=== PATIENT | female | born 1955 | race Caucasian/White ===

== ENCOUNTER 2020-02-19 07:38 | Outpatient (REF) | payer OTHER, SELFPAY ==
[2020-02-19 11:33] LABS: Creatinine Urine 47.47 mg/dL; Microalbum/Creatinine Ratio Ur 16.8 ug/mg cr
[2020-02-19 11:36] LABS: Estimated Average Glucose 126 mg/dL
[2020-02-19 11:43] LABS: Alanine Aminotransferase 8 U/L (0-31); Anion Gap 13 (12-20); Aspartate Amino Transferase 13 U/L (5-31); Blood Urea Nitrogen 15 mg/dL (9-16); Calcium 8.5 mg/dL (8.4-10.2); Carbon Dioxide 29 mmol/L (22-29); Chloride 104 mmol/L (96-108); Cholesterol 165 mg/dL; Estimated Glomerular Filt Rate > 60; Glucose Fasting 106 mg/dL (60-99); HDL Cholesterol 48 mg/dL; LDL Cholesterol Calculated 102 mg/dl; Potassium 4.3 mmol/l (3.3-5.1); Sodium 142 mmol/L (135-145); Triglycerides 79 mg/dL
[2020-02-19 11:54] LABS: Vitamin D 25-OH Total 37.2 ng/mL (>30)
== END 2020-02-19 07:39 | disposition home or self-care (01) ==
LOC: HO.HMGCLDS 07:38
PROVIDERS: PCP Internal Medicine; Visit Provider Internal Medicine
DX: E11.9 Type 2 diabetes mellitus without complications (principal); E78.5 Hyperlipidemia, unspecified; I10 Essential (primary) hypertension; Z78.0 Asymptomatic menopausal state; E55.9 Vitamin D deficiency, unspecified
CPT/HCPCS: 80048; 80061; 82043; 82306; 83036; 84450; 84460

== ENCOUNTER 2020-05-02 10:01 | Outpatient (REF) | payer OTHER, SELFPAY ==
--- NOTE | 2020-05-02 10:08 | MM_ITS ---
EXAMINATION: MM SCREENING DIGITAL BREAST TOMOSYNTHESIS, BILATERAL CLINICAL INFORMATION: Screening. Asymptomatic. The lifetime risk of breast cancer based on the Tyrer-Cuzick Model is 4%. COMPARISON: Mammography: 01/12/2019, 10/14/2017, 10/13/2016 TECHNIQUE: Digital breast tomosynthesis is performed in both the craniocaudal and mediolateral oblique views along with computer-aided detection (CAD). Synthesized 2D images are generated from the tomosynthesis. FINDINGS: There are scattered areas of fibroglandular density (ACR BI-RADS breast composition Category b). There are no significant masses, abnormal calcifications, or other abnormalities. Parenchymal pattern is similar to prior studies. No significant changes. MM/MM tomosynthesis screening BI IMPRESSION: No mammographic evidence of malignancy. ASSESSMENT: BI-RADS 1: Negative RECOMMENDATION: Routine annual mammography screening. This patient's information was entered into a reminder system with a target due date for their next mammogram.
== END 2020-05-02 10:02 | disposition home or self-care (01) ==
LOC: HO.MAMMO 10:01
PROVIDERS: PCP Internal Medicine; Visit Provider Internal Medicine
DX: Z12.31 Encounter for screening mammogram for malignant neoplasm of breast (principal)
CPT/HCPCS: 77063; 77067

== ENCOUNTER 2020-06-25 07:07 | Outpatient (REF) | payer OTHER, SELFPAY ==
[2020-06-25 11:27] LABS: Estimated Average Glucose 117 mg/dL; Hemoglobin A1c % 5.7 %
[2020-06-25 11:46] LABS: Alanine Aminotransferase 14 U/L (0-31); Anion Gap 13 (12-20); Aspartate Amino Transferase 16 U/L (5-31); Blood Urea Nitrogen 22 mg/dL (9-16); Calcium 8.7 mg/dL (8.4-10.2); Carbon Dioxide 26 mmol/L (22-29); Chloride 108 mmol/L (96-108); Cholesterol 160 mg/dL; Estimated Glomerular Filt Rate > 60; Glucose Fasting 108 mg/dL (60-99); HDL Cholesterol 48 mg/dL; LDL Cholesterol Calculated 99 mg/dl; Potassium 4.5 mmol/L (3.3-5.1); Sodium 142 mmol/L (135-145); Triglycerides 65 mg/dL
[2020-06-25 11:58] LABS: Creatinine Urine 80.57 mg/dL; Microalbum/Creatinine Ratio Ur 13.6 ug/mg cr; Vitamin D 25-OH Total 39.9 ng/mL (>30)
== END 2020-06-25 07:08 | disposition home or self-care (01) ==
LOC: HO.HMGCLDS 07:07
PROVIDERS: PCP Internal Medicine; Visit Provider Internal Medicine
DX: E11.9 Type 2 diabetes mellitus without complications (principal); E78.5 Hyperlipidemia, unspecified; I10 Essential (primary) hypertension; Z78.0 Asymptomatic menopausal state
CPT/HCPCS: 36415; 80048; 80061; 82043; 82306; 83036; 84450; 84460

== ENCOUNTER 2020-07-18 08:06 | Outpatient (REF) | payer OTHER, SELFPAY ==
--- NOTE | ~2020-07-18 | MM_ITS ---
EXAMINATION: BONE DENSITOMETRY CLINICAL INDICATION: Menopause. COMPARISON: This is the patient's baseline examination. TECHNIQUE: Using a [employer] DXA System (software version: 13.1) manufactured by [employer], dual-energy x-ray absorptiometry was performed of the lumbar spine and left hip. The images are of good technical quality. Summary results are attached. FINDINGS: AP SPINE L1-L4: BMD 1.070 g/cm2, Z-score 0.9, T-score -0.9, normal. LEFT FEMUR, NECK: BMD 0.880 g/cm2, Z-score 0.5, T-score -1.1, osteopenia. LEFT FEMUR, TOTAL: BMD 0.895 g/cm2, Z-score 0.5, T-score -0.9, normal. IDENTIFIED RISK FACTORS: Menopause, left oophorectomy, tobacco use (current smoker). HISTORY OF FRACTURE: None listed. MEDICATIONS: Vitamin D. MM/XR DEXA axial skeleton IMPRESSION: 1. DIAGNOSIS: Osteopenia based on the lowest T-score value of -1.1 in the femoral neck applying World Health Organization criteria. 2. 10-YEAR FRACTURE RISK PREDICTION, FRAX: Major osteoporotic fracture (clinical spine, forearm, hip or shoulder) 8.0%. Hip fracture 1.1%. 3. Treatment Recommendations: NOF guidelines recommend consideration for treatment in postmenopausal women and men age 50 and older presenting with the following: -A hip or vertebral (clinical or morphometric) fracture. -T-score less than or equal to -2.5 at the femoral neck or spine after appropriate evaluation to exclude secondary causes. -Low bone mass at the hip or spine and a 10-year fracture probability by FRAX of greater than or equal to 3% for hip fracture or greater than or equal to 20% for major osteoporotic fracture based on the [place] adapted WHO algorithm. 4. Other Recommendations: All treatment decisions require clinical judgment and consideration of individual patient factors, including patient preferences, comorbidities, previous drug use, risk factors not captured in the FRAX model (e.g. frailty, falls, vitamin D deficiency, increased bone turnover, interval significant decline in bone density) and possible under or overestimation of fracture risk by FRAX. Additional medical evaluation for secondary cause of low bone mineral density may be appropriate. FUTURE SCAN RECOMMENDATION: People with diagnosed cases of osteoporosis or at high risk for fracture should have regular bone mineral density tests. For patients eligible for Medicare, routine testing is allowed once every 2 years. The testing frequency can be increased to one year for patients who have rapidly progressing disease, those who are receiving or discontinuing medical therapy to restore bone mass, or have additional risk factors.
== END 2020-07-18 08:07 | disposition home or self-care (01) ==
LOC: HO.MAMMO 08:06
PROVIDERS: Visit Provider Internal Medicine
DX: Z13.820 Encounter for screening for osteoporosis (principal); Z78.0 Asymptomatic menopausal state; Z79.899 Other long term (current) drug therapy
CPT/HCPCS: 77080

== ENCOUNTER 2021-04-23 07:15 | Outpatient (REF) | payer MEDICARE, OTHER, SELFPAY ==
[2021-04-23 11:41] LABS: Estimated Average Glucose 111 mg/dL; Hemoglobin A1c % 5.5 %
[2021-04-23 12:07] LABS: Alanine Aminotransferase 13 U/L (0-31); Anion Gap 12 (12-20); Aspartate Amino Transferase 15 U/L (5-31); Blood Urea Nitrogen 15 mg/dL (9-16); Carbon Dioxide 28 mmol/L (22-29); Chloride 105 mmol/L (96-108); Cholesterol 178 mg/dL; Estimated Glomerular Filt Rate > 60; Glucose Fasting 146 mg/dL (60-99); HDL Cholesterol 59 mg/dL; LDL Cholesterol Calculated 106 mg/dl; Potassium 4.3 mmol/L (3.3-5.1); Sodium 141 mmol/L (135-145); Triglycerides 65 mg/dL; Vitamin D 25-OH Total 30.5 ng/mL (>30)
== END 2021-04-23 07:16 | disposition home or self-care (01) ==
LOC: HO.HMGCLDS 07:15
PROVIDERS: PCP Internal Medicine; Visit Provider Internal Medicine
DX: E11.9 Type 2 diabetes mellitus without complications (principal); I10 Essential (primary) hypertension; E78.5 Hyperlipidemia, unspecified; Z78.0 Asymptomatic menopausal state
CPT/HCPCS: 36415; 80048; 80061; 82306; 83036; 84450; 84460

== ENCOUNTER 2021-05-02 13:20 | Outpatient (REF) | payer MEDICARE, OTHER, SELFPAY ==
--- NOTE | ~2021-05-02 | US_ITS ---
EXAMINATION: Noninvasive assessment of the arteries of both lower extremities CLINICAL INFORMATION: Decreased pedal pulses COMPARISON: None ? TECHNIQUE: The ankle/brachial indices of the distal posterior tibial and the dorsalis pedis arteries were obtained of the lower extremity arterial system bilaterally. The study was performed at rest. ? FINDINGS: ?? RIGHT LEG 1. THE RIGHT ANKLE-BRACHIAL INDEX IS: 0.61 (higher of the DP/PT) >0.97-1.25 = normal - no significant arterial disease 0.75-0.96 = mild peripheral arterial disease 0.5-0.74 = moderate peripheral arterial disease <0.50 = severe peripheral arterial disease <0.30 = critical arterial disease 2. SEGMENTAL PRESSURES: Ankle: DP: 118 mmHg, PT: 112 mmHg 3. PVR WAVEFORMS: Ankle: Monophasic LEFT LE. THE LEFT ANKLE-BRACHIAL INDEX IS: 0.86 (higher of the DP/PT) >0.97-1.25 = normal - no significant arterial disease 0.75-0.96 = mild peripheral arterial disease 0.5-0.74 = moderate peripheral arterial disease <0.50 = severe peripheral arterial disease <0.30 = critical arterial disease 2. SEGMENTAL PRESSURES: Ankle: DP: 150 mmHg, PT: 167 mmHg 3. PVR WAVEFORMS: Ankle: Monophasic US/US KEISHA complete IMPRESSION: Moderate peripheral arterial disease on the right and mild peripheral arterial disease on the left.
--- NOTE | ~2021-05-02 | US_ITS ---
EXAMINATION: US RETROPERITONEAL LIMITED (AORTA) CLINICAL INFORMATION: Abdominal bruit. COMPARISON: None TECHNIQUE: Poon-scale, color Doppler and spectral Doppler evaluation of the abdominal aorta. FINDINGS: No abdominal aortic aneurysm. The measurements of the aorta in maximum AP and transverse dimensions respectively are as follows: Proximal: 1.6 x 1.7 cm. Mid: 2.0 x 1.9 cm. Distal: 2.9 x 2.5 cm. PSV: 113.0 cm/s. The measurements of the common iliac arteries in maximum AP and TRV dimensions are as follows: Right Common Iliac Artery: 1.3 x 1.1 cm. Left Common Iliac Artery: 1.2 x 1.4 cm. Bilateral iliac arteries are heavily calcified with elevated velocities. US/US abdominal aortic aneurysm IMPRESSION: No aortic annulus and artery aneurysm, however there appears to be significant stenosis in the bilateral common iliac arteries.
== END 2021-05-02 13:21 | disposition home or self-care (01) ==
LOC: HO.US 13:20
PROVIDERS: PCP Internal Medicine; Visit Provider Internal Medicine
DX: R09.89 Other specified symptoms and signs involving the circulatory and respiratory systems (principal); R20.0 Anesthesia of skin; R20.2 Paresthesia of skin
CPT/HCPCS: 76706; 93923

== ENCOUNTER → 2021-05-13 14:12 | Outpatient (BNVA) | payer MEDICARE, OTHER, SELFPAY | PROVIDERS: PCP Internal Medicine; Visit Provider Surgery Vascular Surgery | DX: I73.9 Peripheral vascular disease, unspecified (principal) | CPT/HCPCS: 99202 ==

== ENCOUNTER 2021-05-21 05:57 | Day surgery (SDC) | payer MEDICARE, OTHER, SELFPAY ==
[2021-05-21] VITALS (8 sets, daily range): BP systolic 151–166; BP diastolic 55–98; PULSE 64–68; RESP 4–18; TEMP 36.9–37.1; O2SAT 98–100; BMI 23.4
[2021-05-21 06:23] LABS: MANUAL DIFF FLAG NO
[2021-05-21 06:27] LABS: Basophils Absolute Auto 0.1 X10*3/uL (0.0-0.2); Eosinophils Absolute Auto 0.2 X10*3/uL (0.0-0.4); Eosinophils Percent Auto 2.4 % (0-4); Hematocrit 44.8 % (37.0-47.0); Hemoglobin 14.4 g/dl (12.0-16.0); Imm Gran Abs Auto 0.08 X10*3/uL (0.00-0.03); Imm Gran Pct Auto 0.8 % (0.0-0.4); Lymphocytes Absolute Auto 3.3 X10*3/uL (1.2-4.9); Lymphocytes Percent Auto 34.1 % (20-40); Mean Corpuscular HGB Conc 32.1 g/dl (31.0-35.0); Mean Corpuscular Hemoglobin 30.8 pg (27.0-33.0); Mean Corpuscular Volume 95.7 fL (80.0-98.0); Mean Platelet Volume 8.8 fL (9.4-12.3); Neutrophils Percent Auto 51.7 % (45-73); Platelet Count 268 X10*3/uL (160-400); Red Blood Count 4.68 X10*6/uL (4.20-5.50); Red Cell Distribution Width 13.2 % (11.0-16.0); White Blood Count 9.8 X10*3/uL (4.8-10.8)
[2021-05-21 06:39] LABS: Blood Urea Nitrogen 12 mg/dL (9-16); Creatinine Clr Calc Pharmacy 54.2; Estimated Glomerular Filt Rate > 60
[2021-05-21 06:58] LABS: Glucose, Whole Blood 126 mg/dL (60-115)
[2021-05-21] MEDS: iohexoL 300 MG/ML 100 ML INFUS..BTL IV (09:00)
[2021-05-21] MEDS: iohexoL 300 MG/ML 50 ML INFUS..BTL IV (09:01)
[2021-05-21] MEDS: Clopidogrel Bisulfate 300 MG TABLET PO (09:53)
--- NOTE | 2021-05-21 10:44 | W.PM.OPN ---
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 Ultrasound-guided left common femoral access, and right common femoral access 2. Aortogram with bilateral lower extremity runoff 3. Angioplasty and stent left common iliac 4. Angioplasty and stent of right common iliac Surgeon:Jose Mcbride M.D., FACS, RPVI Business Resiliency Manager:None Anesthesia: Local with moderate conscious sedation. Total intraservice moderate sedation time was 60 minutes. I monitored the patient's level of consciousness and physiologic status continuously throughout the procedure. Specimens:none Drains:none Estimated blood loss: Less than 10 ml Implant: [place] VBX 8x29 bilateral Indications: Very pleasant 65-year-old female with activity limiting claudication right more so than left. She had noninvasive testing. Concern of inflow disease. She now presents for endovascular intervention The patient has signed the informed consent after reviewing risks, complications, benefits, and alternatives previously discussed with the patient. The patient was given the opportunity to ask any additional questions or voice any concerns. All questions were answered to the patient's satisfaction. Procedure in detail: Patient was brought to the angiography suite prior to which a time-out was called for patient identification and site verification. Bilateral groins were prepped and draped in the standard surgical fashion. Under ultrasound guidance left common femoral was punctured with micro puncture needle and wire. Subsequently a precision 5 [place] sheath was then placed. Bentson wire was advanced to the level of the aorta. 5 [place] Flush catheter was brought up and parked at the level of the renal arteries. Aortogram was then undertaken. Catheter was brought down to the level of the iliac bifurcation. Iliacs were subsequently imaged. It was recognized that she had a high-grade right common iliac stenosis as well. We then under ultrasound guidance placed a 5 [place] sheath on the right common femoral artery as well. This was done in a similar manner as the left. We were able to advance glidewire Advantage wires 035 up bilateral iliac arteries. We subsequently image this area. We then administered 4000 units of systemic heparin. After 5 minutes of circulation time we exchanged out for 7 [place] sheaths bilaterally. We initially plasty did both sides with a 6 x 20 balloon. We subsequently advanced the [place] VBX balloon expandable stents 8 x 29 bilaterally. This was done in a kissing manner. They were insufflated and placed simultaneously at the iliac bifurcation. Once this was accomplished completion angiogram demonstrated excellent result. We did bilateral lower extremity runoffs through the sheaths. Once this was all accomplished bilateral StarClose closure devices were then placed. Patient tolerated the procedure well. Returned to recovery with stable vitals. Interpretation of films: 1. Ultrasound demonstrates appropriate femoral puncture. Image of which was saved. 2. Aortogram demonstrates appropriate caliber aorta. Minimal disease. Appropriate take-off of the renals. 3. Iliac images demonstrate high-grade stenosis at bilateral common iliac arteries. 4. Left Leg Common femoral artery: Patent Profundus Femoris: No significant disease Superficial femoral artery: No significant disease but small in caliber Popliteal artery (p1,p2,p3): No significant disease Anterior tibial artery: No significant disease Peroneal artery: No significant disease Posterior tibial artery: No significant disease 5. Right Leg Common femoral artery: Patent Profundus Femoris: No significant disease Superficial femoral artery: No significant disease but small in caliber Popliteal artery (p1,p2,p3): No significant disease Anterior tibial artery: No significant disease Peroneal artery: No significant disease Posterior tibial artery: No significant disease Conclusion: 1. Successful bilateral iliac arteries 2. Anticoagulation status: Will need aspirin and Plavix for 6 months. This note is constructed using voice recognition software. While every effort has been made to ensure accuracy, service station helper errors may have been included. Thank you for allowing me to participate in the care of your patient. Yours sincerely, Jose Mcbride MD, FACS, R.P.V.I.
== END 2021-05-21 11:36 | disposition home or self-care (01) ==
PROVIDERS: PCP Internal Medicine; Visit Provider Surgery Vascular Surgery
DX: E11.51 Type 2 diabetes mellitus with diabetic peripheral angiopathy without gangrene (principal); I70.213 Atherosclerosis of native arteries of extremities with intermittent claudication, bilateral legs; R26.2 Difficulty in walking, not elsewhere classified; R09.89 Other specified symptoms and signs involving the circulatory and respiratory systems; F32.9 Major depressive disorder, single episode, unspecified; I10 Essential (primary) hypertension; Z79.84 Long term (current) use of oral hypoglycemic drugs; F17.210 Nicotine dependence, cigarettes, uncomplicated
CPT/HCPCS: 36415; 37221; 37223; 76937; 82565; 82947; 84520; 85025; 99152; 99153; C1725; C1760; C1769; C1874; C1887; C1894; J2250; J3010; Q9967

== ENCOUNTER → 2021-06-05 13:20 | Outpatient (BNVA) | payer MEDICARE, OTHER, SELFPAY | PROVIDERS: PCP Internal Medicine; Visit Provider Surgery Vascular Surgery | DX: I73.9 Peripheral vascular disease, unspecified (principal) | CPT/HCPCS: 99212 ==

== ENCOUNTER 2021-06-21 07:39 | Outpatient (REF) | payer MEDICARE, OTHER, SELFPAY ==
--- NOTE | ~2021-06-21 | MM_ITS ---
EXAMINATION: MM SCREENING DIGITAL BREAST TOMOSYNTHESIS, BILATERAL CLINICAL INFORMATION: Screening. Asymptomatic. The lifetime risk of breast cancer based on the Tyrer-Cuzick Model is 3%. COMPARISON: Mammography: 05/02/2020, 01/12/2019, 10/14/2017 TECHNIQUE: Digital breast tomosynthesis is performed in both the craniocaudal and mediolateral oblique views along with computer-aided detection (CAD). Synthesized 2D images are generated from the tomosynthesis. FINDINGS: There are scattered areas of fibroglandular density (ACR BI-RADS breast composition Category b). There are no significant masses, abnormal calcifications, or other abnormalities. Parenchymal pattern is similar to prior studies. No architectural abnormality. The axilla and skin contours are unremarkable. MM/MM tomosynthesis screening BI IMPRESSION: No mammographic evidence of malignancy. ASSESSMENT: BI-RADS 1: Negative RECOMMENDATION: Routine annual mammography screening. This patient's information was entered into a reminder system with a target due date for their next mammogram.
== END 2021-06-21 07:40 | disposition home or self-care (01) ==
LOC: HO.MAMMO 07:39
PROVIDERS: Visit Provider Internal Medicine
DX: Z12.31 Encounter for screening mammogram for malignant neoplasm of breast (principal)
CPT/HCPCS: 77063; 77067

== ENCOUNTER 2021-07-28 06:44 | Outpatient (REF) | payer MEDICARE, OTHER, SELFPAY ==
[2021-07-28 11:46] LABS: Alanine Aminotransferase 14 U/L (0-31); Anion Gap 12 (12-20); Aspartate Amino Transferase 18 U/L (5-31); Blood Urea Nitrogen 19 mg/dL (9-16); Calcium 9.1 mg/dL (8.4-10.2); Carbon Dioxide 26 mmol/L (22-29); Chloride 107 mmol/L (96-108); Cholesterol 168 mg/dL; Estimated Glomerular Filt Rate > 60; Glucose Fasting 118 mg/dL (60-99); HDL Cholesterol 49 mg/dL; LDL Cholesterol Calculated 106 mg/dl; Potassium 4.2 mmol/L (3.3-5.1); Sodium 141 mmol/L (135-145); Triglycerides 65 mg/dL
[2021-07-28 11:52] LABS: Vitamin D 25-OH Total 44.3 ng/mL (>30)
[2021-07-28 12:03] LABS: Estimated Average Glucose 108 mg/dL; Hemoglobin A1c % 5.4 %
== END 2021-07-28 06:45 | disposition home or self-care (01) ==
LOC: HO.HMGCLDS 06:44
PROVIDERS: Visit Provider Internal Medicine
DX: E78.5 Hyperlipidemia, unspecified (principal); I10 Essential (primary) hypertension; I73.9 Peripheral vascular disease, unspecified; Z78.0 Asymptomatic menopausal state
CPT/HCPCS: 36415; 80048; 80061; 82306; 83036; 84450; 84460

== ENCOUNTER 2021-09-04 12:10 | Outpatient (REF) | payer MEDICARE, OTHER, SELFPAY ==
--- NOTE | ~2021-09-04 | US_ITS ---
EXAMINATION: NONINVASIVE ASSESSMENT OF THE ARTERIES OF BOTH LOWER EXTREMITIES INCLUDING PVR EXAM AND BILATERAL LOWER EXTREMITY DUPLEX CLINICAL INFORMATION: Peripheral vascular disease, unspecified. COMPARISON: None TECHNIQUE: Ankle pulse volume recordings, ankle pressure measurements and ankle-brachial indices were obtained of the lower extremity arterial system bilaterally in addition to duplex Doppler techniques with wave form analysis and measurement of velocities in the common femoral, profunda femoral, superficial femoral, popliteal, tibial and peroneal arteries. The study was performed only at rest. FINDINGS: Peak systolic velocity within the distal aorta 146 cm/s. RIGHT LEG 1. Right Ankle-Brachial Index: 1.1 (higher of the DP/PT) >0.97-1.25 = normal - no significant arterial disease 0.75-0.96 = mild peripheral arterial disease 0.5-0.74 = moderate peripheral arterial disease <0.50 = severe peripheral arterial disease <0.30 = critical arterial disease 2. Segmental Pressures (mmHg): Brachial: 179 Ankle: PT 198, DP 200 3. PVR Waveforms: Ankle: Abnormal low amplitude 4. Direct Duplex: Right iliac stent Inflow: 203 cm/s, multiphasic Proximal: 199 cm/s, multiphasic Mid: 191 cm/s, multiphasic Distal 196 cm/s, multiphasic Outflow: 202 cm/s, multiphasic Common femoral artery: 183 cm/s, multiphasic Profunda femoris artery: 124 cm/s, multiphasic Superficial femoral artery (proximal): 136 cm/s, multiphasic Superficial femoral artery (mid): 148 cm/s, multiphasic Superficial femoral artery (distal): 94.4 cm/s, multiphasic Popliteal artery: 120 cm/s, multiphasic Posterior tibial artery: 64 cm/s, multiphasic Within the area of the right groin, adjacent to the femoral vessels there is a complex hypoechoic collection which measures 3.3 x 1.4 x 1.6 cm without internal vascularity. Question hematoma or other structure. Within the popliteal fossa there is a 2.4 x 1.3 x 1.3 cm hypoechoic structure. Question Noonan's cyst. LEFT LE. Left Ankle-Brachial Index: 1.09 (higher of the DP/PT) >0.97-1.25 = normal - no significant arterial disease 0.75-0.96 = mild peripheral arterial disease 0.5-0.74 = moderate peripheral arterial disease <0.50 = severe peripheral arterial disease <0.30 = critical arterial disease 2. Segmental Pressures: Brachial: 182 Ankle: PT 195, DP 199 3. PVR Waveforms: Ankle: Abnormal low amplitude 4. Direct Duplex: Left iliac stent Inflow: 135 cm/s, multiphasic Proximal: 167 cm/s, multiphasic Mid: 157 cm/s, multiphasic Distal: 183 cm/s, multiphasic Outflow: 256 cm/s, multiphasic Common femoral artery: 99.8 cm/s, multiphasic Profunda femoris artery: 132 cm/s, multiphasic Superficial femoral artery (proximal): 145 cm/s, multiphasic Superficial femoral artery (mid): 145 cm/s, multiphasic Superficial femoral artery (distal): 141 cm/s, multiphasic Popliteal artery: 89.7 cm/s, multiphasic Posterior tibial artery: 56.2 cm/s, multiphasic US/US arterial duplex LE BI IMPRESSION: On the right the ankle-brachial index is 1.1, though suspect this may be secondary to calcified vessels. PVR is abnormal and low amplitude. There is multiphasic flow throughout the right lower extremity. On the left the ankle-brachial index is 1.09, though suspect this may be secondary to calcified vessels. PVR is abnormal and low amplitude. There is multiphasic flow throughout the left lower extremity. There are bilateral iliac stents in place. There is normal Doppler signal throughout each of the iliac stents, though there is slightly increased flow velocity at the level of the left iliac outflow which could be suggestive of some degree of narrowing at this level, though there is normal multiphasic flow throughout the remainder of the left lower extremity. There is a complex hypoechoic 3.3 x 1.4 x 1.6 cm structure within the right groin adjacent to the vessels which could represent a hematoma. Would correlate for any recent procedure. Possible small Noonan's cyst within the right popliteal fossa.
--- NOTE | ~2021-09-04 | US_ITS ---
EXAMINATION: US RETROPERITONEAL LIMITED (AORTA) CLINICAL INFORMATION: Peripheral vascular disease. COMPARISON: None TECHNIQUE: Poon-scale, color Doppler and spectral Doppler evaluation of the abdominal aorta. FINDINGS: There is atherosclerotic disease of the abdominal aorta The measurements of the aorta in maximum AP and transverse dimensions respectively are as follows: Proximal: 2.3 x 1.8 cm. Mid: 2.2 x 2.2 cm. Distal: 2.3 x 2.3 cm. PSV: 120 cm/s. The measurements of the common iliac arteries in maximum AP and TRV dimensions are as follows: Right Common Iliac Artery: 0.6 cm. Left Common Iliac Artery: 0.6 cm. US/US aorta IMPRESSION: No abdominal aortic aneurysm seen..
== END 2021-09-04 12:11 | disposition home or self-care (01) ==
LOC: HO.US 12:10
PROVIDERS: Visit Provider Surgery Vascular Surgery
DX: I73.9 Peripheral vascular disease, unspecified (principal); Z95.820 Peripheral vascular angioplasty status with implants and grafts
CPT/HCPCS: 76775; 93923; 93925

== ENCOUNTER → 2021-09-09 13:57 | Outpatient (BNVA) | payer MEDICARE, OTHER, SELFPAY | PROVIDERS: PCP Internal Medicine; Visit Provider Surgery Vascular Surgery | DX: I73.9 Peripheral vascular disease, unspecified (principal) | CPT/HCPCS: 99212 ==

== ENCOUNTER 2022-03-18 10:24 | Outpatient (REF) | payer MEDICARE, OTHER, SELFPAY | END 2022-03-18 10:25 | disposition home or self-care (01) | LOC: HO.US 10:24 | PROVIDERS: Visit Provider Surgery Vascular Surgery | DX: Z13.89 Encounter for screening for other disorder (principal) ==

== ENCOUNTER 2022-05-07 08:09 | Outpatient (REF) | payer MEDICARE, OTHER, SELFPAY ==
[2022-05-07 11:44] LABS: Alanine Aminotransferase 9 U/L (0-31); Anion Gap 9 (12-20); Aspartate Amino Transferase 15 U/L (5-31); Blood Urea Nitrogen 21 mg/dL (9-16); Calcium 8.9 mg/dL (8.4-10.2); Carbon Dioxide 28 mmol/L (22-29); Chloride 108 mmol/L (96-108); Cholesterol 159 mg/dL; Estimated Glomerular Filt Rate > 60; Glucose Fasting 110 mg/dL (60-99); HDL Cholesterol 45 mg/dL; LDL Cholesterol Calculated 104 mg/dl; Potassium 4.3 mmol/L (3.3-5.1); Sodium 141 mmol/L (135-145); Triglycerides 52 mg/dL
[2022-05-07 11:50] LABS: Estimated Average Glucose 128 mg/dL; Hemoglobin A1C 149.2345 umol/L; Hemoglobin A1c % 6.1 %
[2022-05-07 11:50] LABS: Creatinine Urine 71.39 mg/dL; Microalbum/Creatinine Ratio Ur 12.6 ug/mg cr
[2022-05-07 12:04] LABS: Vitamin D 25-OH Total 38.3 ng/mL (>30)
== END 2022-05-07 08:10 | disposition home or self-care (01) ==
LOC: HO.HMGCLDS 08:09
PROVIDERS: PCP Internal Medicine; Visit Provider Internal Medicine
DX: Z13.89 Encounter for screening for other disorder (principal)
CPT/HCPCS: 36415; 80048; 80061; 82043; 82306; 83036; 84450; 84460

== ENCOUNTER 2022-05-07 10:20 | Outpatient (REF) | payer MEDICARE, OTHER, SELFPAY ==
--- NOTE | ~2022-05-07 | US_ITS ---
EXAMINATION: ANKLE-BRACHIAL INDICES SINGLE LEVEL PULSE VOLUME RECORDING ARTERIAL DUPLEX BILATERAL LEGS CLINICAL INFORMATION: Peripheral vascular disease. Iliac artery stents. COMPARISON: 09/04/2021. TECHNIQUE: Ankle-brachial indices and PVR at the ankle were obtained. Duplex Doppler of the bilateral lower extremity arterial systems was performed. FINDINGS: RIGHT: Ankle-brachial index: 0.95 PVR: Mildly abnormal. Right iliac artery proximal to the stent: PSV 193 cm/s. Biphasic waveform. Proximal stent: PSV 208 cm/s. Biphasic waveform. Mid stent: PSV 181 cm/s. Biphasic waveform. Distal stent: PSV 188 cm/s. Biphasic waveform. Right iliac artery distal to stent: PSV 182 cm/s. Biphasic waveform. Common femoral: PSV 182 cm/s. Biphasic waveform. Deep femoral: PSV 112 cm/s. Biphasic waveform. Proximal superficial femoral: PSV 129 cm/s. Biphasic waveform. Mid superficial femoral: PSV 128 cm/s. Biphasic waveform. Distal superficial femoral: PSV 108 cm/s. Biphasic waveform. Popliteal: PSV 103 cm/s. Biphasic waveform. Posterior tibial: PSV 65 cm/s. Biphasic waveform. LEFT: Ankle-brachial index: 0.99 PVR: Normal Left iliac artery proximal to the stent: PSV 130 cm/s. Biphasic waveform. Proximal stent: PSV 197 cm/s. Biphasic waveform. Mid stent: PSV 103 cm/s. Biphasic waveform. Distal stent: PSV 99 cm/s. Biphasic waveform. Left iliac artery distal to stent: PSV 192 cm/s. Biphasic waveform. Common femoral: PSV 192 cm/s. Biphasic waveform. Deep femoral: PSV 101 cm/s. Biphasic waveform. Proximal superficial femoral: PSV 110 cm/s. Biphasic waveform. Mid superficial femoral: PSV 115 cm/s. Biphasic waveform. Distal superficial femoral: PSV 121 cm/s. Biphasic waveform. Popliteal: PSV 95 cm/s. Biphasic waveform. Posterior tibial: PSV a 2 cm/s. Biphasic waveform. US/US arterial duplex LE BI IMPRESSION: Patent bilateral iliac artery stents. No evidence of hemodynamically significant peripheral arterial disease.
--- NOTE | ~2022-05-07 | US_ITS ---
EXAMINATION: ANKLE-BRACHIAL INDICES SINGLE LEVEL PULSE VOLUME RECORDING ARTERIAL DUPLEX BILATERAL LEGS CLINICAL INFORMATION: Peripheral vascular disease. Iliac artery stents. COMPARISON: 09/04/2021. TECHNIQUE: Ankle-brachial indices and PVR at the ankle were obtained. Duplex Doppler of the bilateral lower extremity arterial systems was performed. FINDINGS: RIGHT: Ankle-brachial index: 0.95 PVR: Mildly abnormal. Right iliac artery proximal to the stent: PSV 193 cm/s. Biphasic waveform. Proximal stent: PSV 208 cm/s. Biphasic waveform. Mid stent: PSV 181 cm/s. Biphasic waveform. Distal stent: PSV 188 cm/s. Biphasic waveform. Right iliac artery distal to stent: PSV 182 cm/s. Biphasic waveform. Common femoral: PSV 182 cm/s. Biphasic waveform. Deep femoral: PSV 112 cm/s. Biphasic waveform. Proximal superficial femoral: PSV 129 cm/s. Biphasic waveform. Mid superficial femoral: PSV 128 cm/s. Biphasic waveform. Distal superficial femoral: PSV 108 cm/s. Biphasic waveform. Popliteal: PSV 103 cm/s. Biphasic waveform. Posterior tibial: PSV 65 cm/s. Biphasic waveform. LEFT: Ankle-brachial index: 0.99 PVR: Normal Left iliac artery proximal to the stent: PSV 130 cm/s. Biphasic waveform. Proximal stent: PSV 197 cm/s. Biphasic waveform. Mid stent: PSV 103 cm/s. Biphasic waveform. Distal stent: PSV 99 cm/s. Biphasic waveform. Left iliac artery distal to stent: PSV 192 cm/s. Biphasic waveform. Common femoral: PSV 192 cm/s. Biphasic waveform. Deep femoral: PSV 101 cm/s. Biphasic waveform. Proximal superficial femoral: PSV 110 cm/s. Biphasic waveform. Mid superficial femoral: PSV 115 cm/s. Biphasic waveform. Distal superficial femoral: PSV 121 cm/s. Biphasic waveform. Popliteal: PSV 95 cm/s. Biphasic waveform. Posterior tibial: PSV a 2 cm/s. Biphasic waveform. US/US KEISHA complete IMPRESSION: Patent bilateral iliac artery stents. No evidence of hemodynamically significant peripheral arterial disease.
--- NOTE | ~2022-05-07 | US_ITS ---
EXAMINATION: US RETROPERITONEAL LIMITED (AORTA) CLINICAL INFORMATION: Peripheral vascular disease. COMPARISON: 09/04/2021. TECHNIQUE: Poon-scale, color Doppler and spectral Doppler evaluation of the abdominal aorta. FINDINGS: The aorta is normal in caliber. The measurements of the aorta in maximum AP and transverse dimensions respectively are as follows: Proximal: 2.1 x 1.8 cm. Mid: 1.7 x 1.5 cm. Distal: 2.5 x 2.4 cm. Previously 2.3 x 2.3 cm. PSV: 78 cm/s. The measurements of the common iliac arteries in maximum AP and TRV dimensions are as follows: Right Common Iliac Artery: 1.0 x 0.7 cm. Left Common Iliac Artery: 0.7 x 0.6 cm. Velocity in the right common iliac artery 193.0 cm/s with a biphasic waveform. Velocity in the right external iliac artery 188.0 cm/s with a biphasic waveform. Velocity in the left common iliac artery 130 cm/s with a biphasic waveform. Velocity in the left external iliac artery 99 cm/s with a biphasic waveform. US/US abdominal aortic aneurysm IMPRESSION: Stable small infrarenal abdominal aortic aneurysm.
== END 2022-05-07 10:21 | disposition home or self-care (01) ==
LOC: HO.US 10:20
PROVIDERS: PCP Internal Medicine; Visit Provider Surgery Vascular Surgery
DX: I70.213 Atherosclerosis of native arteries of extremities with intermittent claudication, bilateral legs (principal); Z95.820 Peripheral vascular angioplasty status with implants and grafts; I10 Essential (primary) hypertension; E11.9 Type 2 diabetes mellitus without complications; E78.5 Hyperlipidemia, unspecified; M85.852 Other specified disorders of bone density and structure, left thigh; Z78.0 Asymptomatic menopausal state
CPT/HCPCS: 36415; 76706; 80048; 80061; 82043; 82306; 83036; 84450; 84460; 93923; 93925

== ENCOUNTER 2022-05-12 10:30 | Outpatient (AMB) | payer MEDICARE, OTHER, SELFPAY ==
--- OUTSIDE RECORDS SUMMARY | 2022-05-12 10:32 | XMS_ITS ---
:1955 Author Name Heavenly Tsai Care Team Providers Name Role Phone Valerianuel Heavenly Bell Unavailable Unavailable PROBLEMS Type Condition ICD9-CM Code [id number] Onset Condition SNOMED Code Code Dates Status Problem Type 2 diabetes E11.42 Active [id number] mellitus with diabetic polyneuropathy Problem Primary M19.072 Active [id number] osteoarthritis, left ankle and foot ALLERGIES No Known Allergies ENCOUNTERS Encounter Location Date Diagnosis [facility] Dec, [place] [address] Sep, Typ e 2 diabetes mellitus [place], [place] with diabetic [address] polyneuropathy E 11.42 ; Tinea unguium B3 5.1 ; Pain in right to e(s) M79.674 ; Pain i n left toe(s) M79.675 a nd Primary osteoart hritis, left ankle and f oot M19.072 [facility] [address] [facility] [address], [place] [address] [facility] [address] Nov, Vivienne n in Limb [address]29.[address] Hammer toe 735. 4 [address] Oct, [facility] [address] Oct, Vivienne n in Limb [address]29.[address] Hammer toe 735. 4 [address] Oct, Vivienne n in Limb 729.5 and [place], [place] Hammer toe 735. 4 [address] Oct, [address] Oct, Aracelis betic - [place] NIDDM/Neuropath y 250.60 ; [address] Ulcer of Other P art of Foot 707.15 ; Ar thritis - Degenerative 719 .97 ; Exostosis 726.91 and Hammer toe 735.[address] Sep, [place] [address] Sep, Ulc er of Other Part of [place], [place] Foot 707.15 ; A rthritis - [address] Degenerative 719 .97 ; Diabetic - NIDDM/Neuropathy 250.60 ; Exostosis 726.91 and Hammer toe 735.[address] August, [place] [address] August, Windy chomycosis 110.1 ; [place], [place] Pain in Limb 72 9.5 ; [address] Ulcer of Other P art of Foot 707.15 ; Di abetic - NIDDM/Neuropathy 250.60 ; Exostosis 726.91 ; Hammer toe 735.4 and Farrell llux Limitus 735.8 IMMUNIZATIONS Vaccine Route Administration Date Status COVID-19 Pfizer BioNTech Vaccine Unknown May 09, 2021 Administered SOCIAL HISTORY Qualifiers Date Current Smoker REASON FOR REFERRAL Referring Provider First Name Pratik Referring Provider Last Name Vaibhav Referring Provider Specialty Podiatry Referring Provider email [email or web address] Referred Provider Heavenly Tsai Referring Provider First Name Heavenly Bell Referring Provider Last Name Eulalio Referring Provider Specialty Internal Medicine Referred Organization [facility] Referred Provider Pratik Esposito Referred Address [address], [place],[address] Referred Provider Specialty Podiatry FUNCTIONAL STATUS PLAN OF CARE Activity Details Referral Heavenly Tsai Referral [address] [facility], [address], [place], [address], [email or web address], Pending Test X ray : Foot, left 3V Pending Test X ray : Foot, right 2V Pending Test X ray : Foot, right 2V Pending Test X ray : Foot, right 2V Pending Test Glucose Fasting Pending Test X ray : Foot, right 3V Future/Pending Procedure [id number]-SHOC SKIN LESIONS, 2 T O 4 Future/Pending Procedure 87345- Debride <25 sq cm Future/Pending Procedure [id number] NAIL, 6 OR MOR E Future/Pending Procedure 01492- Debride <25 sq cm Future/Pending Procedure [id number]-HPKC SKIN LESIONS, 2 T O 4 VITAL SIGNS Height 5 ft 1 in in 2021-10-09 Weight 124 lbs 2021-10-09 BMI 23.43 kg/m2 2021-10-09 Heart Rate 108 /min 2014-11-28 Blood pressure systolic 123 mm Hg 2021-10-09 Blood pressure diastolic 80 mm Hg 2021-10-09 MEDICATIONS Medication Instructions Dosage Frequency Start End Duration Statu s Date Date buPROPion HCl as directed Active 150 MG Clopidogrel Orally Once a 1 tablet 24h 30 day(s) Act marli Bisulfate 75 MG day Work Note . .this Sep, Not-Taki patient must 2014 ng be allowed to wear open toe shoes due to painful foot condition until further notice Lisinopril 20 Orally Once a 1 tablet 24h Act marli MG day Simvastatin 10 Orally Once a 1 tablet in 24h Not-Taki MG day the evening ng Extra-Depth . Dx: for 1 year 20 August, . Not-Taki Diabetic Shoes 2014 ng with 3 Pair Custom heat-molded multi-density innersoles . Escitalopram Orally Once a 1 tablet 24h 30 day(s) Ac tive Oxalate 20 MG day Extra Depth for 1 year Sep, Active Diabetic Shoes 2021 with 3 Pair Custom heat-molded multi-density innersoles Atorvastatin Orally Once a 1 tablet 24h 30 day(s) Ac tive Calcium 10 MG day Ibuprofen 600 Orally Three 1 tablet as 8h Oct, 30 DAYS N ot-Taki 600 MG times a day needed 2014 ng metFORMIN HCl Orally Twice a as directed 12h Active 500 MG day Tradjenta 5 MG Orally Once a 1 tablet 24h No t-Taki day ng PROCEDURES Procedure Date Ordered Result Body Site X-RAY EXAM OF RIGHT FOOT 2V Nov 28, 2014 X-RAY EXAM OF RIGHT FOOT 2V November 05, 2014 ACTIVE WOUND CARE/20 CM OR < August 20, 2014 ACTIVE WOUND CARE/20 CM OR < September 17, 2014 X-RAY EXAM OF RIGHT FOOT 3V August 20, 2014 DEBRIDE NAIL, 6 OR MORE August 20, 2014 X-RAY EXAM OF LEFT FOOT 3V October 09, 2021 TRIM SKIN LESIONS, 2 TO 4 October 09, 2021 X-RAY EXAM OF RIGHT FOOT 2V November 15, 2014 DEBRIDE NAIL, 6 OR MORE October 09, 2021 TRIM SKIN LESIONS, 2 TO 4 August 20, 2014 RESULTS Name Result Date Reference Range Hemoglobin A1c Hemoglobin A1c unknown REASON FOR VISIT Insurance Providers [facility] Member Patient Patient Patient Patient Patient Subscriber Subscriber Subscriber Group Insurance Plan Plan Plan Plan ID Relationship Address Phone Name Date of ID Name Date of No Type Insurance Insurance Insurance Coverage to Subscriber Address Phone Name Dates Medicare National [id number] Medicare self Jenny [id number] Govt [employer] [address] [employer] [address] [place] [address] Un[employer] [address] Unicare self Jenny [id number] [place] [address] [facility] [phone] [facility] self Jenny [id number] Navigator [id number] [address] [place] [place] [address] MEDICAL (GENERAL) HISTORY Type Description Date Medical History Diabetic type ll Medical History High blood pressure Medical History Chicken pox Medical History Anxiety Medical History Depression Medical History Poor circulation Surgical History ovarian surgery 1972 Surgical History wisdom teeth extraction 1977 Surgical History Hammertoe/Exc skin ulcer right 11/05 15 Surgical History B/L Stent put in pelvic area 06/10/2021
--- NOTE | 2022-05-12 10:49 | A.OFFPC_ITS ---
Vital Signs 05/12/22 10:53 Height 5 ft 1 in Weight 131 lb BMI 24.7 BP 124/60 Blood Pressure Location Lt brachial Position Sitting Pulse 66 Pulse Source Pulse Oximeter Pulse Oximetry (%) 98 Oxygen Delivery Method Room Air Intake Visit Reasons: f/u labs Intake Note: Pt is here today to f/u on her labs results Allergies No Known Allergies [No Known Allergies*] Allergy (Verified 12/10/22 11:01) Medication List - Last Reconciled 05/12/22 by Heavenly Tsai MD ascorbate calcium (vitamin C) 1 g PO DAILY aspirin 81 mg PO DAILY atorvastatin 10 mg PO Q2D 90 days bupropion HCl 150 mg PO QAM cholecalciferol (vitamin D3) 3,000 units PO DAILY escitalopram oxalate 20 mg PO DAILY lisinopril 20 mg PO DAILY lorazepam 0.5 mg PO DAILY PRN magnesium 300 mg PO DAILY metformin 1,000 mg PO BID Tobacco use date assessed: 05/12/22 Fall risk assessment: No Falls in past year Last assessed Fall Risk: 05/12/22 HPI f/u labs HPI Details 67-year-old lady with dyslipidemia, hype rtension, diabetes mellitus, peripheral arterial disease, with anxiety/ depression, here today for her follow-up. She has been taking her medications as directed, compliant with diet, but still smokes with no desire to quit at present time. She is currently being followed by Dr. Mcbride for her PAD. [facility] Medical History (Updated 12/10/22 @ 11:18 by Heavenly Tsai MD) Osteopenia of left femoral neck Smoker unmotivated to quit Peripheral arterial disease Iliac artery stenosis, bilateral Cigarette smoker Anxiety and depression Decreased pedal pulses Numbness and tingling of both lower extremities Abdominal bruit Postmenopausal Tubular adenoma of colon Encounter for smoking cessation counseling Depression Dyslipidemia Essential hypertension Controlled diabetes mellitus type II without complication Surgical History H/O unilateral oophorectomy Family History Father CVD (cardiovascular disease) Myocardial infarction Mother Diabetes mellitus HTN (hypertension) Stomach cancer Brother Myocardial infarction CVD (cardiovascular disease) Sister No problems noted. Sister No problems noted. Son No problems noted. Son No problems noted. Daughter No problems noted. Daughter No problems noted. Social History Housing: House Alcohol intake: never Patient Tobacco Use Status: Current everyday Tobacco user Cigarettes Per Day: 7 e-Cigarette/Vaping Use: Never Used service: No Current occupational status: retired Cognitive needs: No Hearing needs: No Vision needs: Yes Questionnaire PHQ-9 Over the last 2 weeks, how often have you been bothered by any of the following problems? 1. Little interest or pleasure in doing things: not at all 2. Feeling down, depressed, or hopeless: not at all 3. Trouble falling or staying asleep, or sleeping too much: several days 4. Feeling tired or having little energy: not at all 5. Poor appetite or overeating: several days 6. Feeling bad about yourself - or that you are a failure or have let yourself or your family down: not at all 7. Trouble concentrating on things, such as reading the newspaper or watching television: not at all 8. Moving or speaking so slowly that other people could have noticed. Or the opposite - being so fidgety or restless that you have been moving around a lot more than usual: not at all 9. Thoughts that you would be better off or of hurting yourself in some way: not at all Total score: 2 Depression Screening Interpretation: Positive Depression Screening Follow-up: Existing condition, In treatment and Follow-up Visit Requested [id number] - PHQ-9 Billing: Yes Source: Developed by Drs. Alfredo Gorman, Kim Carson, Maik James and colleagues, with an educational sourav from [employer]. Thrive Questionnaire Date Thrive assessed: 05/12/22 I am a: Patient What is your living situation today?: I have a steady place to live Within the past 12 months, did the food you bought not last and you didn't have the money to get more?: Never true Within the past 12 months, did you worry whether your food would run out before you got money to buy more?: Never true Do you have trouble paying for medicines?: No Do you have trouble getting transportation to medical appointments?: No Do you have trouble paying your heating and electricity bill?: No Do you have trouble taking care of your child, family member or friend?: No Do you have trouble with day-to-day activities such as bathing, preparing meals, shopping, managing finances, etc.?: No Are you currently unemployed and looking for a job?: No Are you interested in more education?: No CYDNEY-7 AMB Questionnaire CYDNEY-7 Date CYDNEY - 7 assessed: 05/12/22 Feeling nervous, anxious, or on edge: 1 = Several days Not being able to stop or control worryin = Several days Worrying too much about different things: 1 = Several days Trouble relaxin = Not at all Being so restless that it is hard to sit still: 0 = Not at all Becoming easily annoyed or irritable: 0 = Not at all Feeling afraid as if something awful might happen: 0 = Not at all Total CYDNEY-7 score (0-4 normal; 5-9 mild; 10-14 moderate; 15-21 severe): 3 Source: Developed by Drs. Alfredo Gorman, Kim Carson, Maik James and colleagues, with an educational sourav from [employer]. CYDNEY-7 Assessment Billing CYDNEY-7 Assessment Tool: CYDNEY-7 Assessment 97852 Review of Systems Const Denies anorexia, Denies body aches, Denies excessive sweating, Denies fatigue, Denies fever(s), Denies headache(s) and Denies increased appetite Eyes Reports no additional complaints ENT Reports Normal hearing present and Denies headache(s) Card Denies chest pain, Denies chest pain at rest, Denies chest pain with activity, Denies pedal edema and Denies dyspnea Resp Denies cough and Denies dyspnea GI Denies abdominal pain, Denies change in stool character and Denies heartburn Reports no additional complaints Musc Denies abnormal gait, Denies muscle cramps and Denies radiating pain into limb Skin/Breast Denies rash, Denies skin ulcer and Denies wounds Neuro Reports Normal hearing present, Denies abnormal gait, Denies headache(s), Denies memory loss and Denies Sensory deficit (Neuro) Psych Reports no additional complaints and Denies memory loss Endo Denies excessive sweating, Denies fatigue, Denies polydipsia and Denies polyuria Maikel/Lymph Denies easy bleeding and Denies easy bruising Aller/Immun Reports no additional complaints Physical exam (Primary Care) Vital Signs: Last Vital Signs Pulse 66 05/12/22 10:53 BP 124/60 05/12/22 10:53 Pulse Ox 98 05/12/22 10:53 Oxygen Delivery Method Room Air 05/12/22 10:53 BMI result Body Mass Index 24.7 Tobacco/Smoking Status: Tobacco use Status Tobacco use date assessed 05/12/22 05/12/22 10:55 Patient Tobacco Use Status Current everyday Tobacco 05/12/22 10:50 e-Cigarette/Vaping Use Never Used 05/12/22 10:50 Are you ready to quit: No PHQ-9: PHQ-9 Score PHQ-9: Total score 2 05/12/22 11:56 Depression Screening Interpretation: Positive Depression Screening Follow-up: Existing condition, In treatment and Follow-up Visit Requested Thrive Assessment: Date of Thrive Assessment Date Thrive assessed 05/12/22 05/12/22 10:55 Const General: cooperative, healthy appearing, no acute distress and alert Orientation/consciousness: patient oriented x3 Limitations: no limitations HENMT Head: Yes normal to inspection, Yes normocephalic and Yes atraumatic Ears: hearing grossly normal bilaterally, external ears normal, TM's normal bilaterally and EAC's normal General nose exam: Normal external nose present and No nasal discharge present Face and sinus: Yes face symmetric Mouth: oropharynx normal and moist mucous membranes Eyes Conjunctivae: conjunctivae normal Sclerae: sclerae normal Pupils: Equal, round and reactive pupils present EOM: EOMs intact bilaterally Neck Neck: Yes full ROM and Yes no lymphadenopathy Thyroid: Thyroid normal Carotids: normal carotid upstroke Chest Chest palpation & inspection: normal inspection of the chest Breast/axilla palpation: normal palpation of the breasts Resp Effort & Inspection: normal respiratory effort and able to speak in complete sentences Auscultation: clear to auscultation bilaterally Cardio Jugular venous distension: no JVD Rate: regular rate Rhythm: regular rhythm Heart sounds: S1 normal heart sound present, S2 normal heart sound present and Murmur heart sound present systolic soft and II/ Peripheral pulses: other (Decreased pulses palpated on femoral, popliteal and unable to palpate dorsa) GI Inspection: Yes normal to inspection Palpation (GI): Soft to palpation, nontender, no guarding, no masses and no pulsatile masses Auscultation: normal bowel sounds General: Yes no CVA tenderness Back/Spine/Pelvis Back: no CVA tenderness Skin General skin exam: no rashes or lesions noted Neuro General: patient oriented x3, gait normal, moves all extremities, no focal motor deficits and CN's II-XI intact bilaterally Cranial nerves: Yes Equal, round and reactive pupils present and Yes Normal hearing present Cognition (Neuro): normal cognition Gait exam (Neuro): Normal gait present Motor exam (neuro): 5/5 motor strength present throughout Sensory Exam: No Sensory deficit (Neuro) Extrem General: Yes normal to inspection, Yes full ROM, Yes no pedal edema and Yes normal gait Psych Appearance: grossly normal and well kempt Mental Status: mental status grossly normal Speech and movement: Normal speech and movement present Affect: normal affect Attitude: cooperative Thought content: Normal thought content present Results Reviewed Results Reviewed: ENTERED: 05/07/22 MYRA DEJESUS: ORDERED: Met Prof Fast, AST, ALT, Lipid Panel, Vitamin D 25-OH Test Result Flag Reference Site Sodium 141 135-145 mmol/L Potassium 4.3 3.3-5.1 mmol/L CL 108 96-108 mmol/L CO2 28 22-29 mmol/L Gap 9 L 12-20 BUN 21 H 9-16 mg/dL Creat 0.81 0.5-1.4 mg/dL EGFR > 60 NOTE: For -[place] individuals, multiply the result by 1.210. Chronic Kidney Disease: Estimated GFR < 60 mL/min/1.73m2 Severe Kidney Disease: Estimated GFR < 15 mL/min/1.73 m2 FBS 110 H 60-99 mg/dL A fasting glucose from 100-125 mg/dl is considered impaired (pre-diabetes). CA 8.9 8.4-10.2 mg/dL AST (GOT) 15 5-31 U/L ALT (GPT) 9 0-31 U/L Triglyceride 52 mg/dL Desirable Triglyceride: less than 150 mg/dL Borderline High Triglyceride 150-199 mg/dL High Triglyceride: 200-499 mg/dL Very High Triglyceride: greater than or equal to 5OO mg/dL Chol 159 mg/dL Desirable Cholesterol: less than 200 mg/dL Borderline High Cholesterol: 200-239 mg/dL High Cholesterol: greater than 239 mg/dL LDL Calculated 104 mg/dl Desirable LDL: less than 100 mg/dL Near Optimal/Above Optimal LDL: 110-129 mg/dL Borderline High LDL: 130-159 mg/dL High LDL: 160-189 mg/dL Very High LDL: greater than or equal to 190 mg/dL HDL 45 mg/dL Desirable HDL: greater than 40 mg/dL Note: This HDL assay may give artificially low results in patients with liver disease. Vit D 25-OH Tot 38.3 >30 ng/mL Health Based Reference Values* Laboratory Tests 05/07/22 05/07/22 08:15 08:20 Estimat Average Glucose 128 Hemoglobin A1c % 6.1 Urine Creatinine 71.39 Urine Microalbumin 9.0 Microalb/Creat Ratio 12.6 Assessment and Plan Assessment & Plan (1) Dyslipidemia: Code(s): E78.5 - Hyperlipidemia, unspecified Plan: Reviewed recent fasting lipid profile with patient with levels within normal limits . Continue with atorvastatin , in addition to adherence to low- cholesterol diet and regular exercise, at least 30 minutes 3 to 4 times a week. Advised patient to make healthy food choices, eat more fruits, vegetables, whole grains, wild caught fish and low-fat dairy. Limit amount of meat and fried or fatty food products, as well as processed foods and fast foods. Follow-up scheduled with repeat fasting lipid panel in 6 months. (2) Essential hypertension: Code(s): I10 - Essential (primary) hypertension Plan: Blood pressure at goal of less than 130/80. Continue with current medication. Reinforced importance of following a low sodium diet, getting regular exercise, and lowering stress levels. (3) Controlled diabetes mellitus type II without complication: Code(s): E11.9 - Type 2 diabetes mellitus without complications Qualifiers: Diabetes mellitus local company intermodal truck driver insulin use: without local company intermodal truck driver use Qualified Code(s): E11.9 - Type 2 diabetes mellitus without complications Plan: Recent lab results reviewed with patient, with sugar and hemoglobin A1c stable and at goal , but higher than usual. Reinforced diabetic diet and regular exercise with patient. Counseled regarding importance of yearly diabetes reti nopathy screening. Patient advised to inspect feet daily, for any signs of injury, callus or infection. Compliance with diet and regular exercise again stressed. Blood pressure goal is less than 130/80, goal LDL is less than 100 and goal hemoglobin A1c is less than 7% follow-up appointment made in-6-months, after fasting labs done. (4) Smoker unmotivated to quit: Code(s): F17.200 - Nicotine dependence, unspecified, uncomplicated Plan: Patient strongly advised to stop smoking, as smoking damages blood vessels, degenerative of joints and spine, damage to lungs and heart., predisposes to developing certain cancers like lung, breast, bladder, colon. Recommended to try decreasing cigarette use by 1-2 cigarettes a day. Advised to monitor what triggers are for smoking so that this can be discussed on the next office visit. We can discuss different options to quit smoking when ready. (5) Anxiety and depression: Code(s): F41.9 - Anxiety disorder, unspecified; F32.A - Depression, unspecified Plan: Mood stable and controlled on escitalopram will continue on present dose (6) Peripheral arterial disease: Comment: 05/21/2021 - bilateral common iliac stenting Code(s): I73.9 - Peripheral vascular disease, unspecified Plan: Followed by Dr. Mcbride, continue with aspirin 81 mg daily, stressed importance of quitting smoking Orders: Orders Lipid Panel 11/17/22 I73.9 - Peripheral vascular disease, unspecified, F41.9 - Anxiety disorder, unspecified, F32.A - Depression, unspecified, E78.5 - Hyperlipidemia, unspecified, I10 - Essential (primary) hypertension, E11.9 - Type 2 diabetes mellitus without complications, Z78.0 - Asymptomatic menopausal state Basic Metabolic Panel Fasting 11/17/22 I73.9 - Peripheral vascular disease, unspecified, F41.9 - Anxiety disorder, unspecified, F32.A - Depression, unspecified, E78.5 - Hyperlipidemia, unspecified, I10 - Essential (primary) hypertension, E11.9 - Type 2 diabetes mellitus without complications, Z78.0 - Asymptomatic menopausal state Vitamin D 25-OH Total 11/17/22 I73.9 - Peripheral vascular disease, unspecified, F41.9 - Anxiety disorder, unspecified, F32.A - Depression, unspecified, E78.5 - Hyperlipidemia, unspecified, I10 - Essential (primary) hypertension, E11.9 - Type 2 diabetes mellitus without complications, Z78.0 - Asymptomatic menopausal state Alanine Aminotransferase 11/17/22 I73.9 - Peripheral vascular disease, unspecified, F41.9 - Anxiety disorder, unspecified, F32.A - Depression, unspecified, E78.5 - Hyperlipidemia, unspecified, I10 - Essential (primary) hypertension, E11.9 - Type 2 diabetes mellitus without complications, Z78.0 - Asymptomatic menopausal state Aspartate Amino Transferase 11/17/22 I73.9 - Peripheral vascular disease, unspecified, F41.9 - Anxiety disorder, unspecified, F32.A - Depression, unspecified, E78.5 - Hyperlipidemia, unspecified, I10 - Essential (primary) hypertension, E11.9 - Type 2 diabetes mellitus without complications, Z78.0 - Asymptomatic menopausal state Hemoglobin A1c 11/17/22 I73.9 - Peripheral vascular disease, unspecified, F41.9 - Anxiety disorder, unspecified, F32.A - Depression, unspecified, E78.5 - Hyperlipidemia, unspecified, I10 - Essential (primary) hypertension, E11.9 - Type 2 diabetes mellitus without complications, Z78.0 - Asymptomatic menopausal state Coding Level of Care Code Est Pt Level 4 (12576) Diagnoses Dyslipidemia E78.5 Essential hypertension I10 Controlled type 2 diabetes mellitus without complication, without long-term current use of insulin E11.9 Diabetes mellitus halfway insulin use: without local company intermodal truck driver use Smoker unmotivated to quit F17.200 Anxiety and depression F41.9; F32.A Peripheral arterial disease I73.9 Additional Codes CYDNEY-7 Assessment Billing - CYDNEY-7 Assessment Tool: CYDNEY-7 Assessment 98353 ([id number])
[2022-05-12 10:53] VITALS: BP 124/60; PULSE 66; O2SAT 98; BMI 24.7
== END 2022-05-12 11:48 | disposition home or self-care (01) ==
LOC: HO.HMGC 10:31
PROVIDERS: PCP Internal Medicine; Visit Provider Internal Medicine
DX: E11.51 Type 2 diabetes mellitus with diabetic peripheral angiopathy without gangrene (principal); I73.9 Peripheral vascular disease, unspecified; E78.5 Hyperlipidemia, unspecified; I10 Essential (primary) hypertension; F17.210 Nicotine dependence, cigarettes, uncomplicated; F41.9 Anxiety disorder, unspecified; F32.A Depression, unspecified
CPT/HCPCS: 96127; 99214

== ENCOUNTER → 2022-06-09 11:23 | Outpatient (BNVA) | payer MEDICARE, OTHER, SELFPAY | PROVIDERS: PCP Internal Medicine; Visit Provider Surgery Vascular Surgery | DX: I73.9 Peripheral vascular disease, unspecified (principal) | CPT/HCPCS: 99212 ==

== ENCOUNTER 2022-12-08 07:52 | Outpatient (REF) | payer MEDICARE, OTHER, SELFPAY ==
[2022-12-08 11:26] LABS: Estimated Average Glucose 108 mg/dL; Hemoglobin A1c % 5.4 % (<6.0)
[2022-12-08 11:48] LABS: Alanine Aminotransferase 11 U/L (0-31); Anion Gap 11 (12-20); Aspartate Amino Transferase 16 U/L (5-31); Blood Urea Nitrogen 18 mg/dL (9-16); Calcium 9.6 mg/dL (8.4-10.2); Carbon Dioxide 24 mmol/L (22-29); Chloride 109 mmol/L (96-108); Cholesterol 178 mg/dL (<200); Estimated Glomerular Filt Rate > 60; Glucose Fasting 124 mg/dL (60-99); HDL Cholesterol 51 mg/dL (>40); LDL Cholesterol Calculated 114 mg/dL (<100); Potassium 4.3 mmol/L (3.3-5.1); Sodium 140 mmol/L (135-145); Triglycerides 68 mg/dL (<150)
[2022-12-08 12:10] LABS: Vitamin D 25-OH Total 51.4 ng/mL (>30)
== END 2022-12-08 07:53 | disposition home or self-care (01) ==
LOC: HO.HMGCLDS 07:52
PROVIDERS: PCP Internal Medicine; Visit Provider Internal Medicine
DX: I73.9 Peripheral vascular disease, unspecified (principal); F41.9 Anxiety disorder, unspecified; F32.A Depression, unspecified; E78.5 Hyperlipidemia, unspecified; I10 Essential (primary) hypertension; E11.9 Type 2 diabetes mellitus without complications; M85.852 Other specified disorders of bone density and structure, left thigh; Z78.0 Asymptomatic menopausal state
CPT/HCPCS: 36415; 80048; 80061; 82306; 83036; 84450; 84460

== ENCOUNTER 2022-12-10 10:41 | Outpatient (AMB) | payer MEDICARE, OTHER, SELFPAY ==
[2022-12-10 10:43] VITALS: BP 132/70; PULSE 69; O2SAT 98; BMI 24.7
--- NOTE | 2022-12-10 10:43 | A.OFFPC_ITS ---
Vital Signs 12/10/22 10:43 Height 5 ft 1 in Weight 131 lb BMI 24.7 BP 132/70 Blood Pressure Location Rt brachial Position Sitting Pulse 69 Pulse Source Pulse Oximeter Pulse Oximetry (%) 98 Intake Visit Reasons: f/u labs Intake Note: pt is here for f/u labs Air Hose Coupler Required: No Accompanied by: Self / Same As Patient Allergies No Known Allergies [No Known Allergies*] Allergy (Verified 12/10/22 11:01) Medication List - Last Reconciled 12/10/22 by Heavenly Tsai MD ascorbate calcium (vitamin C) 1 g PO DAILY aspirin 81 mg PO DAILY atorvastatin 10 mg PO Q2D 90 days bupropion HCl 150 mg PO QAM cholecalciferol (vitamin D3) 3,000 units PO DAILY escitalopram oxalate 20 mg PO DAILY lisinopril 20 mg PO DAILY lorazepam 0.5 mg PO DAILY PRN magnesium 300 mg PO DAILY metformin 1,000 mg PO BID Tobacco use date assessed: 05/12/22 Fall risk assessment: No Falls in past year Last assessed Fall Risk: 12/10/22 Dental Screening Dental Screen Date: 12/10/22 Did you have a dental visit in the last 12 months?: Yes Did you have a dental problem in the last 6 months where you did not have access to dental care?: No Was dental information given to patient?: Patient has dentist HPI f/u labs HPI Details 67-year-old lady with dyslipidemia, hypertension, diabetes mellitus, , osteopenia and anxiety depression, here today for follow-up on her recent labs. Has been compliant with taking her medications, however currently continues to smoke cigarettes with no desire to quit at present time. Recent fasting labs showed diabetes well controlled with a hemoglobin A1c at 5.4% and fasting lipids within normal limits except for slightly elevated LDL cholesterol at 106 mg/ dL she is currently now living with her daughter, stays active doing a lot a yard work. Has been feeling well, with no complaints at present time. [facility] Medical History (Updated 12/10/22 @ 11:18 by Heavenly Tsai MD) Abdominal bruit Anxiety and depression Cigarette smoker Controlled diabetes mellitus type II without complication Decreased pedal pulses Depression Dyslipidemia Encounter for smoking cessation counseling Essential hypertension Iliac artery stenosis, bilateral Numbness and tingling of both lower extremities Osteopenia of left femoral neck Peripheral arterial disease Postmenopausal Smoker unmotivated to quit Tubular adenoma of colon Surgical History H/O unilateral oophorectomy Family History Father CVD (cardiovascular disease) Myocardial infarction Mother Diabetes mellitus HTN (hypertension) Stomach cancer Brother Myocardial infarction CVD (cardiovascular disease) Sister No problems noted. Sister No problems noted. Son No problems noted. Son No problems noted. Daughter No problems noted. Daughter No problems noted. Social History Housing: House Alcohol intake: never Patient Tobacco Use Status: Current everyday Tobacco user Cigarettes Per Day: 7 e-Cigarette/Vaping Use: Never Used service: No Current occupational status: retired Cognitive needs: No Hearing needs: No Vision needs: Yes Questionnaire PHQ-9 Over the last 2 weeks, how often have you been bothered by any of the following problems? 1. Little interest or pleasure in doing things: not at all 2. Feeling down, depressed, or hopeless: not at all 3. Trouble falling or staying asleep, or sleeping too much: not at all 4. Feeling tired or having little energy: not at all 5. Poor appetite or overeating: not at all 6. Feeling bad about yourself - or that you are a failure or have let yourself or your family down: not at all 7. Trouble concentrating on things, such as reading the newspaper or watching television: not at all 8. Moving or speaking so slowly that other people could have noticed. Or the opposite - being so fidgety or restless that you have been moving around a lot more than usual: not at all 9. Thoughts that you would be better off or of hurting yourself in some way: not at all Total score: 0 Depression Screening Interpretation: Negative (Stable and controlled with present treatment) Source: Developed by Drs. Alfredo Gorman, Kim Carson, Maik James and colleagues, with an educational sourav from [employer]. Thrive Questionnaire Date Thrive assessed: 05/12/22 AUDIT C Alcohol Use Questionnaire (AUDIT-C) 1. How often do you have a drink containing alcohol?: Never Total Score: 0 CYDNEY-7 AMB Questionnaire CYDNEY-7 Date CYDNEY - 7 assessed: 05/12/22 Source: Developed by Drs. Alfredo Gorman, Kim Carson, Maik James and colleagues, with an educational sourav from [employer]. Review of Systems Const All systems reviewed & are unremarkable except as noted in HPI and below Reports no additional complaints Eyes Details: [facility], currently up-to-date ENT Reports no additional complaints and Reports Normal hearing present Card Denies chest pain, Denies chest pain at rest, Denies chest pain with activity and Denies pedal edema Resp Denies cough GI Denies abdominal pain Reports no additional complaints Musc Denies abnormal gait and Denies muscle cramps Skin/Breast Denies skin ulcer and Denies wounds Neuro Reports Normal hearing present, Denies abnormal gait and Denies Sensory deficit (Neuro) Psych Reports no additional complaints Endo Reports no additional complaints Maikel/Lymph Reports no additional complaints Physical exam (Primary Care) Vital Signs: Last Vital Signs Pulse 69 12/10/22 10:43 BP 132/70 12/10/22 10:43 Pulse Ox 98 12/10/22 10:43 BMI result Body Mass Index 24.7 Tobacco/Smoking Status: Tobacco use Status Tobacco use date assessed 05/12/22 12/10/22 10:45 Patient Tobacco Use Status Current everyday Tobacco 12/10/22 10:45 e-Cigarette/Vaping Use Never Used 12/10/22 10:45 Depression Screening Interpretation: Negative (Stable and controlled with present treatment) Thrive Assessment: Date of Thrive Assessment Date Thrive assessed 05/12/22 12/10/22 10:45 Const General: cooperative, healthy appearing, no acute distress and alert Orientation/consciousness: patient oriented x3 HENMT Head: Yes normal to inspection and Yes normocephalic Ears: external ears normal General nose exam: Normal external nose present Face and sinus: Yes face symmetric Mouth: oropharynx normal and moist mucous membranes Eyes Conjunctivae: conjunctivae normal Sclerae: sclerae normal Pupils: Equal, round and reactive pupils present EOM: EOMs intact bilaterally Neck Neck: Yes full ROM and Yes no lymphadenopathy Thyroid: Thyroid normal Resp Effort & Inspection: normal respiratory effort and able to speak in complete sentences Auscultation: clear to auscultation bilaterally Cardio Jugular venous distension: no JVD Rate: regular rate Rhythm: regular rhythm Heart sounds: S1 normal heart sound present, S2 normal heart sound present and Murmur heart sound present systolic soft and II/ GI Inspection: Yes normal to inspection Palpation (GI): Soft to palpation, nontender, no guarding, no masses and no pulsatile masses Auscultation: normal bowel sounds General: Yes no CVA tenderness Back/Spine/Pelvis Back: no CVA tenderness Skin General skin exam: no rashes or lesions noted Neuro General: patient oriented x3, gait normal, moves all extremities, no focal motor deficits and CN's II-XI intact bilaterally Cranial nerves: Yes Equal, round and reactive pupils present and Yes Normal hearing present Cognition (Neuro): normal cognition Gait exam (Neuro): Normal gait present Motor exam (neuro): 5/5 motor strength present throughout Sensory Exam: No Sensory deficit (Neuro) Extrem General: Yes normal to inspection, Yes full ROM, Yes no pedal edema and Yes normal gait Psych Appearance: grossly normal and well kempt Mental Status: mental status grossly normal Speech and movement: Normal speech and movement present Affect: normal affect Attitude: cooperative Thought content: Normal thought content present Results Reviewed Results Reviewed: RUN: 12/10/22 1100 PAGE 1 [facility] [address] [place] [id number] Cnc Machine Operator: Vicente Diallo M.D. Specimen Inquiry Name: Jenny Ash Svetlana Age/Sex: 67/F : 1955 Unit#: [id number] Attend Dr: Heavenly Tsai MD Re12/08/22 Status: DEP REF Location: [facility] Disch: SPEC : [id number] JILL: 12/08/22 STATUS: COMP REQ : [id number] RECD: 12/08/22-[address]: Heavenly Tsai MD COMP: 12/08/22-1210 ENTERED: 12/08/22-[address] [facility] [address]: ORDERED: Met Prof Fast, AST, ALT, Lipid Panel, Vitamin D 25-OH Test Result Flag Reference Site Sodium 140 135-145 mmol/L Potassium 4.3 3.3-5.1 mmol/L CL 109 H 96-108 mmol/L CO2 24 22-29 mmol/L Gap 11 L 12-20 BUN 18 H 9-16 mg/dL Creat 0.79 0.5-1.4 mg/dL EGFR > 60 NOTE: For -[place] individuals, multiply the result by 1.210. Chronic Kidney Disease: Estimated GFR < 60 mL/min/1.73m2 Severe Kidney Disease: Estimated GFR < 15 mL/min/1.73m2 FBS 124 H 60-99 mg/dL A fasting glucose from 100-125 mg/dl is considered impaired (pre-diabetes). CA 9.6 # 8.4-10.2 mg/dL AST (GOT) 16 5-31 U/L ALT (GPT) 11 0-31 U/L Triglyceride 68 <150 mg/dL Desirable Triglyceride: less than 150 mg/dL Borderline High Triglyceride 150-199 mg/dL High Triglyceride: 200-499 mg/dL Very High Triglyceride: greater than or equal to 5OO mg/dL Cholesterol 178 <200 mg/dL Desirable Cholesterol: less than 200 mg/dL Borderline High Cholesterol: 200-239 mg/dL High Cholesterol: greater than 239 mg/dL LDL Calculated 114 H <100 mg/dL Desirable LDL: less than 100 mg/dL Near Optimal/Above Optimal LDL: 110-129 mg/dL Borderline High LDL: 130-159 mg/dL High LDL: 160-189 mg/dL Very High LDL: greater than or equal to 190 mg/dL HDL 51 >40 mg/dL Desirable HDL: greater than 40 mg/dL Note: This HDL assay may give artificially low results in patients with liver disease. Vit D 25-OH Tot 51.4 >30 ng/mL Health Based Reference Values* < 20 ng/mL Deficient 20-30 ng/mL Insufficient > 30 ng/mL Sufficient Laboratory Tests 07/28/21 07/28/21 12/08/22 06:50 06:50 07:57 Sodium 141 Potassium 4.2 Chloride 107 Carbon Dioxide 26 Anion Gap 12 BUN 19 H D Creatinine 0.76 Estimated GFR > 60 Fasting Glucose 118 H Estimat Average Glucose 108 108 Hemoglobin A1c % 5.4 5.4 Calcium 9.1 AST 18 ALT 14 Triglycerides 65 Cholesterol 168 LDL Cholesterol, Calc 106 HDL Cholesterol 49 25-OH Vitamin D Total 44.3 Assessment and Plan Assessment & Plan (1) Dyslipidemia: Code(s): E78.5 - Hyperlipidemia, unspecified Plan: Reviewed recent fasting lipid profile with patient with levels within normal limits except for LDL cholesterol at 114 mg/dL . Continue with atorvastatin 10 mg every other day , in addition to adherence to low-cholesterol diet and regular exercise, at least 30 minutes 3 to 4 times a week. Advised patient to make healthy food choices, eat more fruits, vegetables, whole grains, wild caught fish and low-fat dairy. Limit amount of meat and fried or fatty food products, as well as processed foods and fast foods. Follow-up scheduled with repeat fasting lipid panel in 6 months. (2) Essential hypertension: Code(s): I10 - Essential (primary) hypertension Plan: Blood pressure at goal of less than 130/80. Continue with lisinopril 20 mg daily. Reinforced importance of following a low sodium diet, getting regular exercise, and lowering stress levels. (3) Controlled diabetes mellitus type II without complication: Code(s): E11.9 - Type 2 diabetes mellitus without complications Qualifiers: Diabetes mellitus director long term care insulin use: without director long term care use Qualified Code(s): E11.9 - Type 2 diabetes mellitus without complications Plan: Hemoglobin A1c at 5.4%, continue with metformin 500 mg taken twice a day with meals. Reinforced diabetic diet and regular exercise with patient. Counseled regarding importance of yearly diabetes retinopathy screening. Patient advised to inspect feet daily, for any signs of injury, callus or infection. Compliance with diet and regular exercise again stressed. Blood pressure goal is less than 130/80, goal LDL is less than 100 and goal hemoglobin A1c is less than 7% follow-up appointment made in-6--months, after fasting labs done. Reminded to get her flu vaccine does not want to get COVID booster, Prevnar 20 given today. (4) Smoker unmotivated to quit: Code(s): F17.200 - Nicotine dependence, unspecified, uncomplicated Plan: Patient strongly advised to stop smoking, as smoking damages blood vessels, degenerative of joints and spine, damage to lungs and heart., predisposes to developing certain cancers like lung, breast, bladder, colon. Recommended to try decreasing cigarette use by 1-2 cigarettes a day. Advised to monitor what triggers are for smoking so that this can be discussed on the next office visit. We can discuss different options to quit smoking when ready. (5) Osteopenia of left femoral neck: Code(s): M85.852 - Other specified disorders of bone density and structure, left thigh (6) Anxiety and depression: Code(s): F41.9 - Anxiety disorder, unspecified; F32.A - Depression, unspecified Plan: Stable and controlled on present treatment continue with bupropion, escitalopram and lorazepam as needed for acute anxiety attacks Orders: Orders Alanine Aminotransferase 06/18/23 E11.9 - Type 2 diabetes mellitus without comp lications, E78.5 - Hyperlipidemia, unspecified, F32.A - Depression, unspecified, F41.9 - Anxiety disorder, unspecified, I10 - Essential (primary) hypertension, I73.9 - Peripheral vascular disease, unspecified, M85.852 - Other specified disorders of bone density and structure, left thigh, Z78.0 - Asymptomatic menopausal state Aspartate Amino Transferase 06/18/23 E11.9 - Type 2 diabetes mellitus without complications, E78.5 - Hyperlipidemia, unspecified, F32.A - Depression, unspecified, F41.9 - Anxiety disorder, unspecified, I10 - Essential (primary) hypertension, I73.9 - Peripheral vascular disease, unspecified, M85.852 - Other specified disorders of bone density and structure, left thigh, Z78.0 - Asymptomatic menopausal state Basic Metabolic Panel Fasting 06/18/23 E11.9 - Type 2 diabetes mellitus without complications, E78.5 - Hyperlipidemia, unspecified, F32.A - Depression, unspecified, F41.9 - Anxiety disorder, unspecified, I10 - Essential (primary) hypertension, I73.9 - Peripheral vascular disease, unspecified, M85.852 - Other specified disorders of bone density and structure, left thigh, Z78.0 - Asymptomatic menopausal state Hemoglobin A1c 06/18/23 E11.9 - Type 2 diabetes mellitus without complications, E78.5 - Hyperlipidemia, unspecified, F32.A - Depression, unspecified, F41.9 - Anxiety disorder, unspecified, I10 - Essential (primary) hypertension, I73.9 - Peripheral vascular disease, unspecified, M85.852 - Other specified disorders of bone density and structure, left thigh, Z78.0 - Asymptomatic menopausal state Lipid Panel 06/18/23 E11.9 - Type 2 diabetes mellitus without complications, E78.5 - Hyperlipidemia, unspecified, F32.A - Depression, unspecified, F41.9 - Anxiety disorder, unspecified, I10 - Essential (primary) hypertension, I73.9 - Peripheral vascular disease, unspecified, M85.852 - Other specified disorders of bone density and structure, left thigh, Z78.0 - Asymptomatic menopausal state Vitamin D 25-OH Total 06/18/23 E11.9 - Type 2 diabetes mellitus without complications, E78.5 - Hyperlipidemia, unspecified, F32.A - Depression, unspecified, F41.9 - Anxiety disorder, unspecified, I10 - Essential (primary) hypertension, I73.9 - Peripheral vascular disease, unspecified, M85.852 - Other specified disorders of bone density and structure, left thigh, Z78.0 - Asymptomatic menopausal state Microalbumin, Random (w Creat) 06/18/23 E11.9 - Type 2 diabetes mellitus without complications, E78.5 - Hyperlipidemia, unspecified, F32.A - Depression, unspecified, F41.9 - Anxiety disorder, unspecified, I10 - Essential (primary) hypertension, I73.9 - Peripheral vascular disease, unspecified, M85.852 - Other specified disorders of bone density and structure, left thigh, Z78.0 - Asymptomatic menopausal state Coding Level of Care Code Est Pt Level 4 (16918) Diagnoses Dyslipidemia E78.5 Essential hypertension I10 Controlled diabetes mellitus type II without complication E11.9 Diabetes mellitus half-way insulin use: without half-way use Smoker unmotivated to quit F17.200 Osteopenia of left femoral neck M85.852 Anxiety and depression F41.9; F32.A
== END 2022-12-10 11:26 | disposition home or self-care (01) ==
PROVIDERS: PCP Internal Medicine; Visit Provider Internal Medicine
DX: I10 Essential (primary) hypertension (principal); E11.9 Type 2 diabetes mellitus without complications; F17.210 Nicotine dependence, cigarettes, uncomplicated; Z23 Encounter for immunization; F41.9 Anxiety disorder, unspecified; E78.5 Hyperlipidemia, unspecified; M85.852 Other specified disorders of bone density and structure, left thigh; F32.A Depression, unspecified
CPT/HCPCS: 90471; 90677; 99214

== ENCOUNTER 2023-01-05 15:21 | Outpatient (REF) | payer MEDICARE, OTHER, SELFPAY | END 2023-01-05 15:22 | disposition home or self-care (01) | LOC: HO.MAMMO 15:21 | PROVIDERS: PCP Internal Medicine; Visit Provider Internal Medicine | DX: Z12.31 Encounter for screening mammogram for malignant neoplasm of breast (principal) | CPT/HCPCS: 77063; 77067 ==

== ENCOUNTER → 2023-01-05 15:30 | Outpatient (BNV) | payer MEDICARE, OTHER, SELFPAY | PROVIDERS: PCP Internal Medicine; Visit Provider Radiology Diagnostic Radiology | DX: Z12.31 Encounter for screening mammogram for malignant neoplasm of breast (principal) | CPT/HCPCS: 77063; 77067 ==

== ENCOUNTER 2023-05-20 07:50 | Outpatient (REF) | payer MEDICARE, OTHER, SELFPAY ==
--- NOTE | ~2023-05-20 | US_ITS ---
EXAMINATION: US RETROPERITONEAL LIMITED (AORTA) US NONINVASIVE ASSESSMENT OF THE ARTERIES OF BOTH LOWER EXTREMITIES INCLUDING PVR EXAM AND BILATERAL LOWER EXTREMITY DUPLEX. CLINICAL INFORMATION: Peripheral vascular disease. COMPARISON: [facility]ISHA, PVR, arterial duplex, aortic ultrasound May 07, 2022 TECHNIQUE: Poon-scale, color Doppler and spectral Doppler evaluation of the abdominal aorta. Ankle pulse volume recordings, ankle pressure measurements and ankle brachial indices were obtained of the lower extremity arterial system bilaterally in addition to duplex Doppler techniques with wave form analysis and measurement of velocities in the common femoral, profunda femoral, superficial femoral, popliteal, tibial and peroneal arteries. The study was performed only at rest. FINDINGS: The aorta is normal. The measurements of the aorta in maximum AP and transverse dimensions respectively are as follows: Proximal: 2.2 cm. Mid: 1.7 cm. Distal: 2.4 cm. (previously 2.5 cm) PSV: 101 cm/s. RIGHT LE. THE RIGHT ANKLE-BRACHIAL INDEX IS: 1.1 >0.97-1.25 = normal - no significant arterial disease 0.75-0.96 = mild peripheral arterial disease 0.5-0.74 = moderate peripheral arterial disease <0.50 = severe peripheral arterial disease <0.30 = critical arterial disease 2. SEGMENTAL PRESSURES (mmHg): Ankle: PT 184, DP 196 3. PVR WAVEFORMS: Ankle: Dampened 4. DIRECT DUPLEX: Common iliac artery: -Proximal to stent: 188 cm/s, multiphasic -Proximal stent: 147 cm/s, biphasic -Mid stent: 230 cm/s, biphasic -Distal stent: 94 cm/s, multiphasic -Distal to stent: 129 cm/s, multiphasic Right external iliac artery: 170 cm/s, multiphasic Common femoral artery: 160 cm/s, Multiphasic Profunda femoris artery: 103 cm/s, Multiphasic Superficial femoral artery (proximal): 93 cm/s, Multiphasic Superficial femoral artery (mid): 122 cm/s, Multiphasic Superficial femoral artery (distal): 122 cm/s, Multiphasic Proximal Popliteal artery: 107 cm/s, Multiphasic Mid posterior tibial artery: 81 cm/s, Multiphasic LEFT LE. THE LEFT ANKLE-BRACHIAL INDEX IS: 0.98 (higher of the DP/PT) >0.97-1.25 = normal - no significant arterial disease 0.75-0.96 = mild peripheral arterial disease 0.5-0.74 = moderate peripheral arterial disease <0.50 = severe peripheral arterial disease <0.30 = critical arterial disease 2. SEGMENTAL PRESSURES: Ankle: PT 184, DP 183 3. PVR WAVEFORMS: Ankle: Normal 4. DIRECT DUPLEX: Common iliac artery: -Proximal to stent: 125 cm/s, multiphasic -Proximal stent: 101 cm/s, multiphasic -Mid stent: 141 cm/s, multiphasic -Distal stent: 90 cm/s, multiphasic -Distal to stent: 156 cm/s, multiphasic Common femoral artery: 170 cm/s, Multiphasic Profunda femoris artery: 90 cm/s, biphasic Superficial femoral artery (proximal): 136 cm/s, Multiphasic Superficial femoral artery (mid): 171 cm/s, Multiphasic Superficial femoral artery (distal): 117 cm/s, Multiphasic Proximal Popliteal artery: 74 cm/s, Multiphasic Mid posterior tibial artery: 70 cm/s, Multiphasic US/US abdominal aortic aneurysm IMPRESSION: 1. No abdominal aortic aneurysm. 2. Normal resting peripheral arterial testing without evidence of hemodynamically significant stenosis. 3. Mildly elevated velocities within the right common iliac stent may represent in-stent stenosis.
== END 2023-05-20 07:51 | disposition home or self-care (01) ==
LOC: HO.US 07:50
PROVIDERS: PCP Internal Medicine; Visit Provider Surgery Vascular Surgery
DX: I70.213 Atherosclerosis of native arteries of extremities with intermittent claudication, bilateral legs (principal)
CPT/HCPCS: 76706; 93923; 93925

== ENCOUNTER 2023-06-17 10:46 | Outpatient (AMB) | payer MEDICARE, OTHER, SELFPAY ==
[2023-06-17 10:48] VITALS: BMI 24.7
--- NOTE | 2023-06-17 10:48 | A.OFFVIS_ITS ---
Intake Vital Signs 06/17/23 10:48 Height 5 ft 1 in Weight 131 lb BMI 24.7 Intake Visit Reasons: 1 yr follow up LE art US & Abd US 05/20/2023 Intake Note: Patient presents for 1 year follow up , she had both arterial and ABD ultrasounds on 05/20/23. No weakness or swelling when walking or standing. Accompanied by: Self / Same As Patient Allergies No Known Allergies [No Known Allergies*] Allergy (Verified 06/17/23 10:53) HPI 1 yr follow up LE art US & Abd US 05/20/2023 HPI Details Very pleasant 67-year-old female who had undergone bilateral iliac artery stenting with us nearly 2 years ago. She reports she is doing extremely well. She can ambulate with no difficulties. She now presents for routine annual surveillance follow-up. Of note she is being maintained on an aspirin and statin. [facility] Medical History Osteopenia of left femoral neck Smoker unmotivated to quit Peripheral arterial disease Iliac artery stenosis, bilateral Cigarette smoker Anxiety and depression Decreased pedal pulses Numbness and tingling of both lower extremities Abdominal bruit Postmenopausal Tubular adenoma of colon Encounter for smoking cessation counseling Depression Dyslipidemia Essential hypertension Controlled diabetes mellitus type II without complication Surgical History H/O unilateral oophorectomy Family History Father CVD (cardiovascular disease) Myocardial infarction Mother Diabetes mellitus HTN (hypertension) Stomach cancer Brother Myocardial infarction CVD (cardiovascular disease) Sister No problems noted. Sister No problems noted. Son No problems noted. Son No problems noted. Daughter No problems noted. Daughter No problems noted. Social History Housing: House Alcohol intake: never Patient Tobacco Use Status: Current everyday Tobacco user Cigarettes Per Day: 7 e-Cigarette/Vaping Use: Never Used service: No Current occupational status: retired Cognitive needs: No Hearing needs: No Vision needs: Yes Review of Systems Const All systems reviewed & are unremarkable except as noted in HPI and below Reports no additional complaints ENT Reports Normal hearing present Card Denies chest pain, Denies chest pain at rest, Denies chest pain with activity and Denies pedal edema Resp Denies cough GI Denies abdominal pain Musc Denies abnormal gait, Denies muscle cramps and Denies radiating pain into limb Skin/Breast Denies skin ulcer and Denies wounds Neuro Reports Normal hearing present and Denies abnormal gait Psych Reports no additional complaints Physical Exam Vital Signs: BMI result Body Mass Index 24.7 Const General: cooperative, healthy appearing and comfortable Orientation/consciousness: oriented to person, oriented to place and oriented to time HEENT Head: Yes normal to inspection Neck Neck: Yes normal visual inspection Carotids: no bruits Chest Chest palpation & inspection: normal inspection of the chest Resp Effort & Inspection: normal respiratory effort and able to speak in complete sentences Auscultation: clear to auscultation bilaterally, no crackles, no rales, no rhonchi and no wheezes Cardio Other: Bilateral palpable dorsalis pedis pulse Rate: regular rate Rhythm: regular rhythm Heart sounds: S1 normal heart sound present and S2 normal heart sound present Bruits: no carotid bruits Peripheral pulses: Peripheral pulses 2+ throughout GI Inspection: Yes normal to inspection Skin Wounds: no wounds Hair: normal Neuro General: oriented to person, oriented to place and oriented to time Cranial nerves: Yes CN's II-XII intact bilaterally and Yes Normal hearing present Cognition (Neuro): normal cognition Motor exam (neuro): 5/5 motor strength present throughout Extrem Other: venous exam: No significant superficial varicosities or spider telangiectasias, minimal edema General: No clubbing, No cyanosis and No edema Psych Appearance: grossly normal Mental Status: mental status grossly normal Speech and movement: Normal speech and movement present Results Reviewed Results Reviewed: Noninvasive testing dated 05/20/2023 demonstrates KEISHA on the right of 1.1 and on the left of 0.98 Assessment & Plan Assessment & Plan (1) Peripheral arterial disease: Comment: 05/21/2021 - bilateral common iliac stenting Code(s): I73.9 - Peripheral vascular disease, unspecified Plan: In short patient has stable claudication. I did review the pathophysiology of peripheral vascular disease with the patient. In addition we did discuss routine conservative measures including a healthy diet and the importance of exercise and ambulation. We did discuss risk factor modification. The patient will continue to to follow-up with surveillance follow-up in approximately 1 year. Thank you for allowing us to participate in this patient's care. If there are any questions or concerns please do not hesitate to contact us. Orders: Orders US arterial duplex LE BI 1 Year I73.9 - Peripheral vascular disease, unspecified Coding Level of Care Code Est Pt Level 4 (07187) Diagnoses Peripheral arterial disease I73.9
== END 2023-06-17 11:11 | disposition home or self-care (01) ==
LOC: HO.HVS 10:46
PROVIDERS: PCP Internal Medicine; Visit Provider Surgery Vascular Surgery
DX: I73.9 Peripheral vascular disease, unspecified (principal)
CPT/HCPCS: 99213

== ENCOUNTER → 2023-06-17 10:46 | Outpatient (BNVA) | payer MEDICARE, OTHER, SELFPAY | PROVIDERS: PCP Internal Medicine; Visit Provider Surgery Vascular Surgery | DX: I73.9 Peripheral vascular disease, unspecified (principal) | CPT/HCPCS: 99212 ==

== ENCOUNTER 2023-10-14 10:41 | Outpatient (REF) | payer MEDICARE, OTHER, SELFPAY ==
[2023-10-14 14:34] LABS: Estimated Average Glucose 123 mg/dL; Hemoglobin A1c % 5.9 % (<6.0)
[2023-10-14 14:40] LABS: Alanine Aminotransferase 9 U/L (0-31); Anion Gap 10 (12-20); Aspartate Amino Transferase 16 U/L (5-31); Blood Urea Nitrogen 16 mg/dL (9-16); Carbon Dioxide 24 mmol/L (22-29); Chloride 110 mmol/L (96-108); Cholesterol 170 mg/dL (<200); Estimated Glomerular Filt Rate > 60; Glucose Fasting 108 mg/dL (60-99); HDL Cholesterol 47 mg/dL (>40); LDL Cholesterol Calculated 102 mg/dL (<100); Sodium 140 mmol/L (135-145); Triglycerides 105 mg/dL (<150)
[2023-10-14 14:48] LABS: Creatinine Urine 105.64 mg/dL; Microalbum/Creatinine Ratio Ur 30.2 ug/mg cr (<30)
[2023-10-14 14:55] LABS: Vitamin D 25-OH Total 96.2 ng/mL (>30)
== END 2023-10-14 10:42 | disposition home or self-care (01) ==
LOC: HO.HMGCLDS 10:41
PROVIDERS: PCP Internal Medicine; Visit Provider Internal Medicine
DX: M85.852 Other specified disorders of bone density and structure, left thigh (principal); F41.9 Anxiety disorder, unspecified; F32.A Depression, unspecified; E78.5 Hyperlipidemia, unspecified; I10 Essential (primary) hypertension; E11.9 Type 2 diabetes mellitus without complications; I73.9 Peripheral vascular disease, unspecified; Z78.0 Asymptomatic menopausal state
CPT/HCPCS: 36415; 80048; 80061; 82043; 82306; 82570; 83036; 84450; 84460

== ENCOUNTER 2023-10-18 12:47 | Outpatient (AMB) | payer MEDICARE, OTHER, SELFPAY ==
--- NOTE | 2023-10-18 12:54 | MHC.PC.OV ---
Vital Signs 10/18/23 13:17 Height 5 ft 1 in Weight 134 lb BMI 25.3 BP 120/70 Pulse 67 Pulse Source Pulse Oximeter Pulse Oximetry (%) 97 Oxygen Delivery Method Room Air Intake Visit Reasons: Follow-up on hypertension and lipids Intake Note: Pt is here today for her f/u labs Allergies No Known Allergies [No Known Allergies*] Allergy (Verified 10/18/23 13:30) Medication List - Last Reconciled 10/18/23 by Heavenly Tsai MD ascorbate calcium (vitamin C) 1 g PO DAILY aspirin 81 mg PO DAILY atorvastatin 10 mg PO Q2D 90 days bupropion HCl XL 150 mg PO QAM cholecalciferol (vitamin D3) 3,000 units PO DAILY escitalopram oxalate 20 mg PO DAILY lisinopril 20 mg PO DAILY lorazepam 0.5 mg PO DAILY PRN magnesium 300 mg PO DAILY metformin 1,000 mg PO BID Tobacco use date assessed: 10/18/23 Fall risk assessment: No Falls in past year Last assessed Fall Risk: 10/18/23 Dental Screening Dental Screen Date: 10/18/23 Did you have a dental visit in the last 12 months?: Yes Did you have a dental problem in the last 6 months where you did not have access to dental care?: Yes Was dental information given to patient?: Patient has dentist HPI HPI Comments History of Present Illness Details 68-year-old lady with history of peripheral arterial disease status bilateral iliac artery stenting, has hypertension, diabetes mellitus, hyperlipidemia, osteopenia of left femoral neck, here today for her follow-up. She has been compliant with taking her medications, tries to do regular exercise. Had recent fasting labs done which showed her hemoglobin A1c within normal limits at 5.9%, LDL cholesterol at 102 mg/dL. Electrolytes, renal function liver enzymes and vitamin-D levels were all within normal limits. Continues to smoke cigarettes, with no desire to quit at present time [facility] Medical History (Updated 10/23/23 @ 22:09 by Heavenly Tsai MD) Osteopenia of left femoral neck Smoker unmotivated to quit Peripheral arterial disease Iliac artery stenosis, bilateral Cigarette smoker Anxiety and depression Decreased pedal pulses Numbness and tingling of both lower extremities Abdominal bruit Postmenopausal Tubular adenoma of colon Dyslipidemia Essential hypertension Controlled diabetes mellitus type II without complication Surgical History H/O unilateral oophorectomy Family History Father CVD (cardiovascular disease) Myocardial infarction Mother Diabetes mellitus HTN (hypertension) Stomach cancer Brother Myocardial infarction CVD (cardiovascular disease) Sister No problems noted. Sister No problems noted. Son No problems noted. Son No problems noted. Daughter No problems noted. Daughter No problems noted. Social History Housing: House Alcohol intake: never Patient Tobacco Use Status: Current everyday Tobacco user Cigarettes Per Day: 7 e-Cigarette/Vaping Use: Never Used service: No Current occupational status: retired Cognitive needs: No Hearing needs: No Vision needs: Yes Questionnaire PHQ-9 Over the last 2 weeks, how often have you been bothered by any of the following problems? 1. Little interest or pleasure in doing things: not at all 2. Feeling down, depressed, or hopeless: not at all 3. Trouble falling or staying asleep, or sleeping too much: not at all 4. Feeling tired or having little energy: not at all 5. Poor appetite or overeating: not at all 6. Feeling bad about yourself - or that you are a failure or have let yourself or your family down: not at all 7. Trouble concentrating on things, such as reading the newspaper or watching television: not at all 8. Moving or speaking so slowly that other people could have noticed. Or the opposite - being so fidgety or restless that you have been moving around a lot more than usual: not at all 9. Thoughts that you would be better off or of hurting yourself in some way: not at all Total score: 0 Depression Screening Interpretation: Negative Depression Screening Done: Yes 17815 - PHQ-9 Billing: Yes Source: Developed by Drs. Alfredo Gorman, Kim Carson, Maik James and colleagues, with an educational sourav from [employer]. Thrive Questionnaire Date Thrive assessed: 10/18/23 I am a: Patient What is your living situation today?: I have a steady place to live Within the past 12 months, did the food you bought not last and you didn't have the money to get more?: Never true Within the past 12 months, did you worry whether your food would run out before you got money to buy more?: Never true Do you have trouble paying for medicines?: No Do you have trouble getting transportation to medical appointments?: No Do you have trouble paying your heating and electricity bill?: No Do you have trouble taking care of your child, family member or friend?: No Do you have trouble with day-to-day activities such as bathing, preparing meals, shopping, managing finances, etc.?: No Are you currently unemployed and looking for a job?: No Are you interested in more education?: No THRIVE Score: 0 AUDIT C Alcohol Use Questionnaire (AUDIT-C) 1. How often do you have a drink containing alcohol?: Never Total Score: 0 CYDNEY-7 AMB Questionnaire CYDNEY-7 Date CYDNEY - 7 assessed: 10/18/23 Feeling nervous, anxious, or on edge: 0 = Not at all Not being able to stop or control worryin = Not at all Worrying too much about different things: 0 = Not at all Trouble relaxin = Not at all Being so restless that it is hard to sit still: 0 = Not at all Becoming easily annoyed or irritable: 0 = Not at all Feeling afraid as if something awful might happen: 0 = Not at all Total CYDNEY-7 score (0-4 normal; 5-9 mild; 10-14 moderate; 15-21 severe): 0 Source: Developed by Drs. Alfredo Gorman, Kim Carson, Maik James and colleagues, with an educational sourav from [employer]. Review of Systems Const All systems reviewed & are unremarkable except as noted in HPI and below Reports no additional complaints Eyes Reports no additional complaints ENT Reports Normal hearing present Card Denies chest pain, Denies chest pain at rest, Denies chest pain with activity and Denies pedal edema Resp Denies cough GI Denies abdominal pain Reports no additional complaints Musc Denies abnormal gait, Denies muscle cramps and Denies radiating pain into limb Skin/Breast Denies skin ulcer and Denies wounds Neuro Reports Normal hearing present, Denies abnormal gait and Denies Sensory deficit (Neuro) Psych Reports no additional complaints Endo Reports no additional complaints Maikel/Lymph Reports no additional complaints Aller/Immun Reports no additional complaints Physical exam (Primary Care) Vital Signs: Last Vital Signs Pulse 67 10/18/23 13:17 BP 120/70 10/18/23 13:17 Pulse Ox 97 10/18/23 13:17 Oxygen Delivery Method Room Air 10/18/23 13:17 BMI result Body Mass Index 25.3 Tobacco/Smoking Status: Tobacco use Status Tobacco use date assessed 10/18/23 10/18/23 12:57 Patient Tobacco Use Status Current everyday Tobacco 10/18/23 12:57 e-Cigarette/Vaping Use Never Used 10/18/23 12:57 PHQ-9: PHQ-9 Score PHQ-9: Total score 0 10/18/23 13:42 Depression Screening Interpretation: Negative Thrive Assessment: Date of Thrive Assessment Date Thrive assessed 10/18/23 10/18/23 13:22 Const General: cooperative, healthy appearing, no acute distress and alert Orientation/consciousness: patient oriented x3 HENMT Head: Yes normal to inspection and Yes normocephalic Ears: external ears normal General nose exam: Normal external nose present Face and sinus: Yes face symmetric Mouth: oropharynx normal and moist mucous membranes Eyes Conjunctivae: conjunctivae normal Sclerae: sclerae normal Pupils: Equal, round and reactive pupils present EOM: EOMs intact bilaterally Neck Neck: Yes full ROM and Yes no lymphadenopathy Thyroid: Thyroid normal Resp Effort & Inspection: normal respiratory effort and able to speak in complete sentences Auscultation: clear to auscultation bilaterally Cardio Jugular venous distension: no JVD Rate: regular rate Rhythm: regular rhythm Heart sounds: S1 normal heart sound present, S2 normal heart sound present and Murmur heart sound present systolic soft and II/ GI Inspection: Yes normal to inspection Palpation (GI): Soft to palpation, nontender, no guarding, no masses and no pulsatile masses Auscultation: normal bowel sounds General: Yes no CVA tenderness Back/Spine/Pelvis Back: no CVA tenderness Skin General skin exam: no rashes or lesions noted Neuro General: patient oriented x3, gait normal, moves all extremities, no focal motor deficits and CN's II-XI intact bilaterally Cranial nerves: Yes Equal, round and reactive pupils present and Yes Normal hearing present Cognition (Neuro): normal cognition Gait exam (Neuro): Normal gait present Motor exam (neuro): 5/5 motor strength present throughout Sensory Exam: No Sensory deficit (Neuro) Extrem General: Yes normal to inspection, Yes full ROM, Yes no pedal edema and Yes normal gait Results Reviewed Results Reviewed: Name: Jenny Ash Age/Sex: 67/F : 1955 Unit#: [id number] Attend Dr: Heavenly Tsai MD Re10/14/23 Status: DEP [facility]F [facility] Disch: SPEC : [id number] JILL: 10/14/23 STATUS: COMP REQ : [id number] RECD: 10/14/[address]: Heavenly Tsai MD COMP: 10/14/23 ENTERED: 10/14/[address]: ORDERED: Met Prof Fast, AST, ALT, Lipid Panel, Vitamin D 25-OH Test Result Flag Reference Sodium 140 135-145 mmol/L Potassium 4.0 3.3-5.1 mmol/L CL 110 H 96-108 mmol/L CO2 24 22-29 mmol/L Gap 10 L 12-20 BUN 16 9-16 mg/dL Creat 0.67 0.5-1.4 mg/dL EGFR > 60 NOTE: For -[place] individuals, multiply the result by 1.210. Chronic Kidney Disease: Estimated GFR < 60 mL/min/1.73m2 Severe Kidney Disease: Estimated GFR < 15 mL/min/1.73m2 FBS 108 H 60-99 mg/dL A fasting glucose from 100-125 mg/dl is considered impaired (pre-diabetes). CA 9.0 # 8.4-10.2 mg/dL AST (GOT) 16 5-31 U/L ALT (GPT) 9 0-31 U/L Triglyceride 105 <150 mg/dL Desirable Triglyceride: less than 150 mg/dL Borderline High Triglyceride 150-199 mg/dL High Triglyceride: 200-499 mg/dL Very High Triglyceride: greater than or equal to 5OO mg/dL Cholesterol 170 <200 mg/dL Desirable Cholesterol: less than 200 mg/dL Borderline High Cholesterol: 200-239 mg/dL High Cholesterol: greater than 239 mg/dL LDL Calculated 102 H <100 mg/dL Desirable LDL: less than 100 mg/dL Near Optimal/Above Optimal LDL: 110-129 mg/dL Borderline High LDL: 130-159 mg/dL High LDL: 160-189 mg/dL Very High LDL: greater than or equal to 190 mg/dL HDL 47 >40 mg/dL Desirable HDL: greater than 40 mg/dL Note: This HDL assay may give artificially low results in patients with liver disease. Vit D 25-OH Tot 96.2 >30 ng/mL Health Based Reference Values* < 20 ng/mL Deficient 20-30 ng/mL Insufficient > 30 ng/mL Sufficient Assessment and Plan Assessment & Plan (1) Controlled diabetes mellitus type II without complication: Code(s): E11.9 - Type 2 diabetes mellitus without complications Qualifiers: Diabetes mellitus group home insulin use: without 1st pressman use Qualified Code(s): E11.9 - Type 2 diabetes mellitus without complications Plan: Continue metformin 1000 mg 1 tablet twice a day with meals (2) Essential hypertension: Code(s): I10 - Essential (primary) hypertension Plan: Continue lisinopril 20 mg daily (3) Dyslipidemia: Code(s): E78.5 - Hyperlipidemia, unspecified Plan: Continue with atorvastatin 10 mg 1 tablet every 2 days (4) Anxiety and depression: Code(s): F41.9 - Anxiety disorder, unspecified; F32.A - Depression, unspecified Plan: Currently on bupropion HCL XL 150 mg 1 tablet daily in a.m. and escitalopram 20 mg daily, takes lorazepam as needed for acute anxiety attacks (5) Osteopenia of left femoral neck: Code(s): M85.852 - Other specified disorders of bone density and structure, left thigh Plan: Continue taking cholecalciferol 3000 units daily, take adequate calcium from dietary sources. Reinforced importanc of getting regular weight-bearing exercise Orders: Orders Alanine Aminotransferase 04/09/24 E11.9 - Type 2 diabetes mellitus without complications, E78.5 - Hyperlipidemia, unspecified, F32.A - Depression, unspecified, F41.9 - Anxiety disorder, unspecified, I10 - Essential (primary) hypertension, I73.9 - Peripheral vascular disease, unspecified, M85.852 - Other specified disorders of bone density and structure, left thigh, Z78.0 - Asymptomatic menopausal state Vitamin D 25-OH Total 04/09/24 E11.9 - Type 2 diabetes mellitus without complications, E78.5 - Hyperlipidemia, unspecified, F32.A - Depression, unspecified, F41.9 - Anxiety disorder, unspecified, I10 - Essential (primary) hypertension, I73.9 - Peripheral vascular disease, unspecified, M85.852 - Other specified disorders of bone density and structure, left thigh, Z78.0 - Asymptomatic menopausal state Basic Metabolic Panel Fasting 04/09/24 E11.9 - Type 2 diabetes mellitus without complications, E78.5 - Hyperlipidemia, unspecified, F32.A - Depression, unspecified, F41.9 - Anxiety disorder, unspecified, I10 - Essential (primary) hypertension, I73.9 - Peripheral vascular disease, unspecified, M85.852 - Other specified disorders of bone density and structure, left thigh, Z78.0 - Asymptomatic menopausal state Aspartate Amino Transferase 04/09/24 E11.9 - Type 2 diabetes mellitus without complications, E78.5 - Hyperlipidemia, unspecified, F32.A - Depression, unspecified, F41.9 - Anxiety disorder, unspecified, I10 - Essential (primary) hypertension, I73.9 - Peripheral vascular disease, unspecified, M85.852 - Other specified disorders of bone density and structure, left thigh, Z78.0 - Asymptomatic menopausal state Hemoglobin A1c 04/09/24 E11.9 - Type 2 diabetes mellitus without complications, E78.5 - Hyperlipidemia, unspecified, F32.A - Depression, unspecified, F41.9 - Anxiety disorder, unspecified, I10 - Essential (primary) hypertension, I73.9 - Peripheral vascular disease, unspecified, M85.852 - Other specified disorders of bone density and structure, left thigh, Z78.0 - Asymptomatic menopausal state Lipid Panel 04/09/24 E11.9 - Type 2 diabetes mellitus without complications, E78.5 - Hyperlipidemia, unspecified, F32.A - Depression, unspecified, F41.9 - Anxiety disorder, unspecified, I10 - Essential (primary) hypertension, I73.9 - Peripheral vascular disease, unspecified, M85.852 - Other specified disorders of bone density and structure, left thigh, Z78.0 - Asymptomatic menopausal state Coding Level of Care Code Est Pt Level 4 (82890) Complex EM visit Add On G2211 Diagnoses Controlled type 2 diabetes mellitus without complication, without long-term current use of insulin E11.9 Diabetes mellitus group home insulin use: without 1st pressman use Essential hypertension I10 Dyslipidemia E78.5 Anxiety and depression F41.9; F32.A Osteopenia of left femoral neck M85.852
[2023-10-18 13:17] VITALS: BP 120/70; PULSE 67; O2SAT 97; BMI 25.3
== END 2023-10-18 15:32 | disposition home or self-care (01) ==
PROVIDERS: PCP Internal Medicine; Visit Provider Internal Medicine
DX: E11.69 Type 2 diabetes mellitus with other specified complication (principal); I73.9 Peripheral vascular disease, unspecified; I10 Essential (primary) hypertension; E78.5 Hyperlipidemia, unspecified; F41.9 Anxiety disorder, unspecified; F32.A Depression, unspecified; M85.852 Other specified disorders of bone density and structure, left thigh
CPT/HCPCS: 99214; G2211

== ENCOUNTER 2024-03-20 13:23 | Outpatient (AMB) | payer MEDICARE, OTHER, SELFPAY ==
[2024-03-20 14:50] VITALS: BP 126/80; PULSE 69; O2SAT 98; BMI 26.3
--- NOTE | 2024-03-20 14:50 | AM.OFFWIN_ITS ---
Intake Vital Signs 03/20/24 14:50 Height 5 ft 1 in Weight 139 lb BMI 26.3 BP 126/80 Blood Pressure Location Lt brachial Position Sitting Pulse 69 Pulse Source Pulse Oximeter Pulse Oximetry (%) 98 Oxygen Delivery Method Room Air Intake Visit Reasons: EP-urine blood & cramps Intake Note: Patient here because on wednesday she woke up and used the bathroom and noticed that it was pure red/blood and has not had it since but has been experiencing abdominal cramping. Patient Tobacco Use Status: Current everyday Tobacco user Allergies No Known Allergies [No Known Allergies*] Allergy (Verified 03/20/24 15:00) Do you need a note to return to daycare/school/sports/work: No HPI EP-urine blood & cramps HPI Details This note is constructed using voice recognition software. While every effort has been made to ensure accuracy, helium arc welder errors may have been included. The patient is a 68 year old female who presents to the clinic today with hematuria and cramping yesterday. She denies fever, chills, general body aches. She had 1 episode where she had some cramping, went to the bathroom, and had blood in the toilet. She has had minimal frequency, urgency. She does have her uterus intact in his postmenopausal. She has had no additional visible blood in her urine. FOR[facility], LAT[facility] Medical History (Updated 10/23/23 @ 22:09 by Heavenly Tsai MD) Osteopenia of left femoral neck Smoker unmotivated to quit Peripheral arterial disease Iliac artery stenosis, bilateral Cigarette smoker Anxiety and depression Decreased pedal pulses Numbness and tingling of both lower extremities Abdominal bruit Postmenopausal Tubular adenoma of colon Dyslipidemia Essential hypertension Controlled diabetes mellitus type II without complication Surgical History H/O unilateral oophorectomy Family History Father CVD (cardiovascular disease) Myocardial infarction Mother Diabetes mellitus HTN (hypertension) Stomach cancer Brother Myocardial infarction CVD (cardiovascular disease) Sister No problems noted. Sister No problems noted. Son No problems noted. Son No problems noted. Daughter No problems noted. Daughter No problems noted. Social History Housing: House Alcohol intake: never Patient Tobacco Use Status: Current everyday Tobacco user Cigarettes Per Day: 7 e-Cigarette/Vaping Use: Never Used service: No Current occupational status: retired Cognitive needs: No Hearing needs: No Vision needs: Yes Review of Systems Const All systems reviewed & are unremarkable except as noted in HPI and below Physical Exam Vital Signs: Last Vital Signs Pulse 69 03/20/24 14:50 BP 126/80 03/20/24 14:50 Pulse Ox 98 03/20/24 14:50 Oxygen Delivery Method Room Air 03/20/24 14:50 BMI result Body Mass Index 26.3 Const General: cooperative, healthy appearing, comfortable, no acute distress and alert Orientation/consciousness: patient oriented x3 Limitations: no limitations Resp Effort & Inspection: normal respiratory effort and able to speak in complete sentences Other: Deferred General: Yes no CVA tenderness Back/Spine/Pelvis Back: no CVA tenderness Skin General skin exam: no rashes or lesions noted, elasticity normal and turgor normal Neuro General: patient oriented x3 Psych Appearance: grossly normal Mental Status: mental status grossly normal Speech and movement: Normal speech and movement present Affect: normal affect Assessment & Plan Assessment & Plan (1) UTI (urinary tract infection): Code(s): N39.0 - Urinary tract infection, site not specified Qualifiers: Urinary tract infection type: acute cystitis Hematuria presence: with hematuria Qualified Code(s): N30.01 - Acute cystitis with hematuria Plan: Supportive measures encouraged and reviewed. Antibiotic sent to requested pharmacy, advised patient to take antibiotics until completed and not to stop if feeling better, unless the patient has side effects. Given bleeding in postmenopausal female, I advised her to follow up with her primary care provider for additional imaging and testing as appropriate. She has an appointment in 1 month with her PCP, I advised her to keep that. Advised patient to follow up with primary care provider with worsening or failure to resolve. Plan See above for full details and plan. Medications: New nitrofurantoin monohyd/m-cryst 100 mg must administer with a meal/food 100 mg PO Q12H 5 days 10 caps 0RF Coding Level of Care Code Est Pt Level 3 (73120) Diagnoses Acute cystitis with hematuria N30.01 Urinary tract infection type: acute cystitis Hematuria presence: with hematuria
== END 2024-03-20 15:39 | disposition home or self-care (01) ==
PROVIDERS: PCP Internal Medicine; Visit Provider Registered Nurse
DX: Z13.9 Encounter for screening, unspecified (principal); N30.01 Acute cystitis with hematuria

== ENCOUNTER → 2024-03-20 13:23 | Outpatient (BNVA) | payer MEDICARE, OTHER, SELFPAY | PROVIDERS: PCP Internal Medicine; Visit Provider Registered Nurse | DX: N30.01 Acute cystitis with hematuria (principal) | CPT/HCPCS: 81003; 99212 ==

== ENCOUNTER 2024-05-01 09:39 | Outpatient (REF) | payer MEDICARE, OTHER, SELFPAY ==
[2024-05-01 13:34] LABS: Estimated Average Glucose 114 mg/dL; Hemoglobin A1C 137.8577 umol/L; Hemoglobin A1c % 5.6 % (<6.0); Total Hemoglobin (HGBA1C) 3645.5121 umol/L
[2024-05-01 13:51] LABS: Alanine Aminotransferase 13 U/L (0-31); Anion Gap 8 (12-20); Aspartate Amino Transferase 25 U/L (5-31); Blood Urea Nitrogen 18 mg/dL (9-16); Carbon Dioxide 29 mmol/L (22-29); Chloride 108 mmol/L (96-108); Cholesterol 156 mg/dL (<200); Estimated Glomerular Filt Rate > 60; Glucose Fasting 88 mg/dL (60-99); HDL Cholesterol 47 mg/dL (>40); LDL Cholesterol Calculated 92 mg/dL (<100); Potassium 4.3 mmol/L (3.3-5.1); Sodium 141 mmol/L (135-145); Triglycerides 86 mg/dL (<150)
[2024-05-01 14:09] LABS: Vitamin D 25-OH Total 121.1 ng/mL (>30)
== END 2024-05-01 09:40 | disposition home or self-care (01) ==
LOC: HO.HMGCLDS 09:39
PROVIDERS: PCP Internal Medicine; Visit Provider Internal Medicine
DX: M85.852 Other specified disorders of bone density and structure, left thigh (principal); I73.9 Peripheral vascular disease, unspecified; F41.9 Anxiety disorder, unspecified; F32.A Depression, unspecified; Z78.0 Asymptomatic menopausal state; E78.5 Hyperlipidemia, unspecified; I10 Essential (primary) hypertension; E11.9 Type 2 diabetes mellitus without complications
CPT/HCPCS: 36415; 80048; 80061; 82306; 83036; 84450; 84460

== ENCOUNTER 2024-05-02 08:46 | Outpatient (AMB) | payer MEDICARE, OTHER, SELFPAY ==
[2024-05-02 08:55] VITALS: BP 122/70; PULSE 66; O2SAT 97; BMI 26.1
--- NOTE | 2024-05-02 08:55 | A.OFFPC_ITS ---
Vital Signs 05/02/24 08:55 Height 5 ft 1 in Weight 138 lb BMI 26.1 BP 122/70 Blood Pressure Location Lt brachial Position Sitting Pulse 66 Pulse Source Pulse Oximeter Pulse Oximetry (%) 97 Intake Visit Reasons: Annual PE Intake Note: Pt is here today for her PE: Last mammogram 01/05/23, bone density scan 07/18/20, colonoscopy 12/29/19 Allergies No Known Allergies [No Known Allergies*] Allergy (Verified 05/02/24 09:06) Medication List - Last Reconciled 05/02/24 by Heavenly Tsai MD ascorbate calcium (vitamin C) 1 g PO DAILY aspirin 81 mg PO DAILY atorvastatin 10 mg PO Q2D 90 days bupropion HCl XL 150 mg PO QAM cholecalciferol (vitamin D3) 3,000 units PO DAILY escitalopram oxalate 20 mg PO DAILY lisinopril 20 mg PO DAILY lorazepam 0.5 mg PO DAILY PRN magnesium 300 mg PO DAILY metformin 1,000 mg PO BID Tobacco use date assessed: 05/02/24 Fall risk assessment: No Falls in past year Last assessed Fall Risk: 05/02/24 Dental Screening Dental Screen Date: 05/02/24 Did you have a dental visit in the last 12 months?: Yes Did you have a dental problem in the last 6 months where you did not have access to dental care?: Yes Was dental information given to patient?: Patient has dentist HPI Annual PE HPI Details - patient is a 68-year-old female with p ast medical history significant for diabetes mellitus osteopenia of left femoral neck, impaired, has peripheral arterial disease, anxiety depression, dyslipidemia, hypertension presenting today for her physical exam. - Reports a single episode of bloody uri nation in March, followed by a negative urinalysis. - history of polyps and diverticulosis with last colonoscopy findings from 2019, due for repeat colonoscopy. - Anxiety and depression stable and cont rolled on escitalopram 20 mg daily and takes lorazepam as needed for acute anxiety attacks. - Has chronic tobacco use disorder with currently six cigarettes per day, not interested in quitting at present time. - Flu shot recommended and discussed due to missed vaccination in the previous year. - Bone density scan last conducted in showing osteopenia; due for repeat bone density scan - due for a repeat mammogram and colonos copy - Advised to lower vitamin D intake due to previously high levels. [facility] Medical History History of rectal bleeding Hx of adenomatous polyp of colon Osteopenia of left femoral neck Smoker unmotivated to quit Peripheral arterial disease Iliac artery stenosis, bilateral Anxiety and depression Decreased pedal pulses Numbness and tingling of both lower extremities Abdominal bruit Postmenopausal Dyslipidemia Essential hypertension Controlled diabetes mellitus type II without complication Surgical History H/O unilateral oophorectomy Family History Father CVD (cardiovascular disease) Myocardial infarction Mother Diabetes mellitus HTN (hypertension) Stomach cancer Brother Myocardial infarction CVD (cardiovascular disease) Sister No problems noted. Sister No problems noted. Son No problems noted. Son No problems noted. Daughter No problems noted. Daughter No problems noted. Social History Housing: House Alcohol intake: never Patient Tobacco Use Status: Current everyday Tobacco user Cigarettes Per Day: 6 Years Smoked: 30 e-Cigarette/Vaping Use: Never Used service: No Current occupational status: retired Cognitive needs: No Hearing needs: No Vision needs: Yes Questionnaire PHQ-9 Over the last 2 weeks, how often have you been bothered by any of the following problems? 1. Little interest or pleasure in doing things: not at all 2. Feeling down, depressed, or hopeless: several days 3. Trouble falling or staying asleep, or sleeping too much: not at all 4. Feeling tired or having little energy: not at all 5. Poor appetite or overeating: not at all 6. Feeling bad about yourself - or that you are a failure or have let yourself or your family down: not at all 7. Trouble concentrating on things, such as reading the newspaper or watching television: not at all 8. Moving or speaking so slowly that other people could have noticed. Or the opposite - being so fidgety or restless that you have been moving around a lot more than usual: not at all 9. Thoughts that you would be better off or of hurting yourself in some way: not at all Total score: 1 Depression Screening Interpretation: Negative (Depression, Controlled on present treatment) Depression Screening Done: Yes 53838 - PHQ-9 Billing: Yes Source: Developed by Drs. Alfredo Gorman, Kim Carson, Maik James and colleagues, with an educational sourav from [employer]. Thrive Questionnaire Date Thrive assessed: 05/02/24 I am a: Patient What is your living situation today?: I have a steady place to live Within the past 12 months, did the food you bought not last and you didn't have the money to get more?: Never true Within the past 12 months, did you worry whether your food would run out before you got money to buy more?: Never true Do you have trouble paying for medicines?: No Do you have trouble getting transportation to medical appointments?: No Do you have trouble paying your heating and electricity bill?: No Do you have trouble taking care of your child, family member or friend?: No Do you have trouble with day-to-day activities such as bathing, preparing meals, shopping, managing finances, etc.?: No Are you currently unemployed and looking for a job?: No Are you interested in more education?: No Please select the resources that you would like help with: None Currently or been in a relationship where the following occur: No concerns reported THRIVE Score: 0 AUDIT C Alcohol Use Questionnaire (AUDIT-C) 1. How often do you have a drink containing alcohol?: Never Total Score: 0 CYDNEY-7 AMB Questionnaire CYDNEY-7 Date CYDNEY - 7 assessed: 05/02/24 Feeling nervous, anxious, or on edge: 0 = Not at all Not being able to stop or control worryin = Several days Worrying too much about different things: 1 = Several days Trouble relaxin = Not at all Being so restless that it is hard to sit still: 0 = Not at all Becoming easily annoyed or irritable: 0 = Not at all Feeling afraid as if something awful might happen: 0 = Not at all Total CYDNEY-7 score (0-4 normal; 5-9 mild; 10-14 moderate; 15-21 severe): 2 Source: Developed by Drs. Alfredo Gorman, Maik Ruiz and colleagues, with an educational sourav from [employer]. CYDNEY-7 Assessment Billing CYDNEY-7 Assessment Tool: CYDNEY-7 Assessment 53010 Review of Systems Const All systems reviewed & are unremarkable except as noted in HPI and below Reports no additional complaints Eyes Details: [facility] eye care Reports no additional complaints ENT Details: sees dentist in [place] Reports Normal hearing present Card Denies chest pain, Denies chest pain at rest, Denies chest pain with activity and Denies pedal edema Resp Denies cough GI Denies abdominal pain Reports no additional complaints Musc Denies abnormal gait, Denies muscle cramps and Denies radiating pain into limb Skin/Breast Denies skin ulcer and Denies wounds Neuro Reports Normal hearing present, Denies abnormal gait and Denies Sensory deficit (Neuro) Psych Reports no additional complaints Endo Reports no additional complaints Maikel/Lymph Reports no additional complaints Aller/Immun Reports no additional complaints Physical exam (Primary Care) Vital Signs: Last Vital Signs Pulse 66 05/02/24 08:55 BP 122/70 05/02/24 08:55 Pulse Ox 97 05/02/24 08:55 BMI result Body Mass Index 26.1 Tobacco/Smoking Status: Tobacco use Status Tobacco use date assessed 05/02/24 05/02/24 09:00 Patient Tobacco Use Status Current everyday Tobacco 05/02/24 09:00 e-Cigarette/Vaping Use Never Used 05/02/24 09:00 PHQ-9: PHQ-9 Score PHQ-9: Total score 1 05/02/24 09:32 Depression Screening Interpretation: Negative (Depression, Controlled on present treatment) Thrive Assessment: Date of Thrive Assessment Date Thrive assessed 05/02/24 05/02/24 09:00 Currently or been in a relationship where the following occur: No concerns reported Advance Care Planning discussion: Completed/Scanned Date of discussion: 05/02/24 Who was present: patient Forms completed: Health Care Proxy and MOLST Time spent: 16-45 minutes Actual minutes spent: 10 Const General: cooperative, healthy appearing, no acute distress and alert Orientation/consciousness: patient oriented x3 HENMT Head: Yes normal to inspection and Yes normocephalic Ears: external ears normal General nose exam: Normal external nose present Face and sinus: Yes face symmetric Mouth: oropharynx normal and moist mucous membranes Eyes Conjunctivae: conjunctivae normal Sclerae: sclerae normal Pupils: Equal, round and reactive pupils present EOM: EOMs intact bilaterally Neck Neck: Yes full ROM and Yes no lymphadenopathy Thyroid: Thyroid normal Chest Breast/axilla inspection: normal inspection of the breasts Breast/axilla palpation: normal palpation of the breasts Resp Effort & Inspection: normal respiratory effort and able to speak in complete sentences Auscultation: clear to auscultation bilaterally Cardio Jugular venous distension: no JVD Rate: regular rate Rhythm: regular rhythm Heart sounds: S1 normal heart sound present, S2 normal heart sound present and Murmur heart sound present systolic soft and II/ GI Inspection: Yes normal to inspection Palpation (GI): Soft to palpation, nontender, no guarding, no masses and no pulsatile masses Auscultation: normal bowel sounds General: Yes no CVA tenderness Back/Spine/Pelvis Back: no CVA tenderness Skin General skin exam: no rashes or lesions noted Neuro General: patient oriented x3, gait normal, moves all extremities, no focal motor deficits and CN's II-XI intact bilaterally Cranial nerves: Yes Equal, round and reactive pupils present and Yes Normal hearing present Cognition (Neuro): normal cognition Gait exam (Neuro): Normal gait present Motor exam (neuro): 5/5 motor strength present throughout Sensory Exam: No Sensory deficit (Neuro) Extrem General: Yes normal to inspection, Yes full ROM, Yes no pedal edema and Yes normal gait Psych Appearance: grossly normal and well kempt Mental Status: mental status grossly normal Speech and movement: Normal speech and movement present Affect: normal affect Results Reviewed Results Reviewed: Laboratory Tests 10/14/23 10/14/23 05/01/24 10:50 10:55 09:42 Estimat Average Glucose 123 114 Hemoglobin A1c % 5.9 5.6 Urine Creatinine 105.64 Urine Microalbumin 32.0 Microalb/Creat Ratio 30.2 H Name: Jenny Ash Age/Sex: 68/F : 1955 Unit#: [id number] Attend Dr: Heavenly Tsai MD Re05/01/24 Status: DEP REF Location: [facility] Disch: SPEC : [id number] JILL: 05/01/24 STATUS: COMP REQ : [id number] RECD: 05/01/24-[address]: Heavenly Tsai MD COMP: 05/01/24-1409 ENTERED: 05/01/[address] [facility] [address]: ORDERED: Met Prof Fast, AST, ALT, Lipid Panel, Vitamin D 25-OH Test Result Flag Reference Sodium 141 135-145 mmol/L Potassium 4.3 3.3-5.1 mmol/L CL 108 96-108 mmol/L CO2 29 22-29 mmol/L Gap 8 L 12-20 BUN 18 H 9-16 mg/dL Creat 0.78 0.5-1.4 mg/dL eGFR > 60 Chronic Kidney Disease: Estimated GFR < 60 mL/min/1.73m2 Severe Kidney Disease: Estimated GFR < 15 mL/min/1.73m2 FBS 88 60-99 mg/dL CA 9.0 8.4-10.2 mg/dL AST (GOT) 25 5-31 U/L ALT (GPT) 13 0-31 U/L Triglyceride 86 <150 mg/dL Desirable Triglyceride: less than 150 mg/dL Borderline High Triglyceride 150-199 mg/dL High Triglyceride: 200-499 mg/dL Very High Triglyceride: greater than or equal to 5OO mg/dL Cholesterol 156 <200 mg/dL Desirable Cholesterol: less than 200 mg/dL Borderline High Cholesterol: 200-239 mg/dL High Cholesterol: greater than 239 mg/dL LDL Calculated 92 <100 mg/dL Desirable LDL: less than 100 mg/dL Near Optimal/Above Optimal LDL: 110-129 mg/dL Borderline High LDL: 130-159 mg/dL High LDL: 160-189 mg/dL Very High LDL: greater than or equal to 190 mg/dL HDL 47 >40 mg/dL Desirable HDL: greater than 40 mg/dL Note: This HDL assay may give artificially low results in patients with liver disease. Vit D 25-OH Tot 121.1 >30 ng/mL Health Based Reference Values* < 20 ng/mL Deficient 20-30 ng/mL Insufficient > 30 ng/mL Sufficient Coding Level of Care Code Est Pt Prev Care >65y(27678) Diagnoses Hx of adenomatous polyp of colon Z86.0101 History of rectal bleeding Z87.19 Osteopenia of left femoral neck M85.852 Controlled type 2 diabetes mellitus without complication, without long-term current use of insulin E11.9 Diabetes mellitus care home insulin use: without remote computer terminal operator use Essential hypertension I10 Dyslipidemia E78.5 Anxiety and depression F41.9; F32.A Peripheral arterial disease I73.9 Hearing impaired H91.90 Annual visit for general adult medical examination with abnormal findings Z00.01 Smoker unmotivated to quit F17.200 Advanced directives, counseling/discussion Z71.89 Additional Codes Vital Signs *Quality* - Advance Care Planning discussion: Completed/Scanned ([id number]) Vital Signs *Quality* - Time spent: 16-45 minutes ([id number]) PHQ-9 - 15210 - PHQ-9 Billing: Yes ([id number]) CYDNEY-7 Assessment Billing - CYDNEY-7 Assessment Tool: CYDNEY-7 Assessment 80771 ([id number]) Assessment & Plan Assessment & Plan (1) Hx of adenomatous polyp of colon: Code(s): Z86.0101 - Personal history of adenomatous and serrated colon polyps Category: Medical Plan: Referred for repeat colonoscopy (2) History of rectal bleeding: Code(s): Z87.19 - Personal history of other diseases of the digestive system Category: Medical Plan: Referred to repeat colonoscopy (3) Osteopenia of left femoral neck: Code(s): M85.852 - Other specified disorders of bone density and structure, left thigh Category: Medical Plan: Bone density scan ordered last vitamin-D level were high, advised to lower vitamin-D intake, continue with regular weight-bearing exercise, take adequate calcium from dietary sources (4) Controlled diabetes mellitus type II without complication: Code(s): E11.9 - Type 2 diabetes mellitus without complications Category: Medical Qualifiers: Diabetes mellitus remote computer terminal operator insulin use: without care home use Quali fied Code(s): E11.9 - Type 2 diabetes mellitus without complications Plan: Last hemoglobin A1c within normal limits, continued on metformin 1000 mg twice a day (5) Essential hypertension: Code(s): I10 - Essential (primary) hypertension Category: Medical Plan: Blood pressure at goal of less than 130/80. Continue with current medication. Reinforced importance of following a low sodium diet, getting regular exercise, and lowering stress levels. (6) Dyslipidemia: Code(s): E78.5 - Hyperlipidemia, unspecified Category: Medical Plan: Reviewed recent fasting lipid profile with patient with levels within normal limits . Continue atorvastatin 10 mg 1 tablet every other day , in addition to adherence to low-cholesterol diet and regular exercise, at least 30 minutes 3 to 4 times a week. Advised patient to make healthy food choices, eat more fruits, vegetables, whole grains, wild caught fish and low-fat dairy. Limit amount of meat and fried or fatty food products, as well as processed foods and fast foods. Follow-up scheduled with repeat fasting lipid panel in 4 months. (7) Anxiety and depression: Code(s): F41.9 - Anxiety disorder, unspecified; F32.A - Depression, unspecified Category: Medical Plan: Controlled on escitalopram will continue on current dose (8) Peripheral arterial disease: Comment: 05/21/2021 - bilateral common iliac stenting Code(s): I73.9 - Peripheral vascular disease, unspecified Category: Medical Plan: Smoking cessation advised, but patient not ready to quit at present time. Continued on aspirin 81 mg daily. Followed by vascular surgery once a year for surveillance (9) Hearing impaired: Code(s): H91.90 - Unspecified hearing loss, unspecified ear Category: Medical Plan: Wears hearing aids (10) Annual visit for general adult medical examination with abnormal findings: Code(s): Z00.01 - Encounter for general adult medical examination with abnormal findings Plan: Latest fasting labs reviewed with patient. Recommended dental visit every 6 months and up-to-date with regular eye exams, goes to [facility] . Instructed to do self-breast exam, and advised to get yearly mammogram, ordered, together with repeat bone density scan. Referred for screening colonoscopy (11) Smoker unmotivated to quit: Code(s): F17.200 - Nicotine dependence, unspecified, uncomplicated Category: Social Hx Plan: Patient strongly advised to stop smoking, as smoking damages blood vessels, degenerative of joints and spine, damage to lungs and heart., predisposes to developing certain cancers like lung, breast, bladder, colon. Recommended to try decreasing cigarette use by 1-2 cigarettes a day. Advised to monitor what triggers are for smoking so that this can be discussed on the next office visit. We can discuss different options to quit smoking when ready. Referred for yearly lung cancer screening (12) Advanced directives, counseling/discussion: Code(s): Z71.89 - Other specified counseling Plan: Initiated the conversation about Advanced Directives. Advanced Directives help patients prepare for current and future decisions about their medical treatment and place of care. Discussed with patient that it is a process where a patients current condition and prognosis are reviewed, their wishes for information regarding their illness are elicited, and likely medical dilemmas are presented and options discussed. Healthcare proxy and MOLST form completed today. These forms can be amended as needed, reviewed yearly and make changes as needed Orders: Orders MM tomosynthesis screening BI 05/02/24 M85.852 - Other specified disorders of bone density and structure, left thigh, Z12.31 - Encounter for screening mammogram for malignant neoplasm of breast, Z78.0 - Asymptomatic menopausal state Lipid Panel 08/17/24 E11.9 - Type 2 diabetes mellitus without complications, E78.5 - Hyperlipidemia, unspecified, F32.A - Depression, unspecified, F41.9 - Anxiety disorder, unspecified, I10 - Essential (primary) hypertension, I73.9 - Peripheral vascular disease, unspecified, M85.852 - Other specified disorders of bone density and structure, left thigh, Z00.01 - Encounter for general adult medical examination with abnormal findings, Z78.0 - Asymptomatic menopausal state, Z86.0101 - Personal history of adenomatous and serrated colon polyps, Z87.19 - Personal history of other diseases of the digestive system Comprehensive [place]. Panel Fast 08/17/24 E11.9 - Type 2 diabetes mellitus without complications, E78.5 - Hyperlipidemia, unspecified, F32.A - Depression, unspecified, F41.9 - Anxiety disorder, unspecified, I10 - Essential (primary) hypertension, I73.9 - Peripheral vascular disease, unspecified, M85.852 - Other specified disorders of bone density and structure, left thigh, Z00.01 - Encounter for general adult medical examination with abnormal findings, Z78.0 - Asymptomatic menopausal state, Z86.0101 - Personal history of adenomatous and serrated colon polyps, Z87.19 - Personal history of other diseases of the digestive system XR DEXA axial skeleton 05/02/24 M85.852 - Other specified disorders of bone density and structure, left thigh, Z12.31 - Encounter for screening mammogram for malignant neoplasm of breast, Z78.0 - Asymptomatic menopausal state Complete Blood Count Auto Diff 08/17/24 E11.9 - Type 2 diabetes mellitus without complications, E78.5 - Hyperlipidemia, unspecified, F32.A - Depression, unspecified, F41.9 - Anxiety disorder, unspecified, I10 - Essential (primary) hypertension, I73.9 - Peripheral vascular disease, unspecified, M85.852 - Other specified disorders of bone density and structure, left thigh, Z00.01 - Encounter for general adult medical examination with abnormal findings, Z78.0 - Asymptomatic menopausal state, Z86.0101 - Personal history of adenomatous and serrated colon polyps, Z87.19 - Personal history of other diseases of the digestive system Vitamin D 25-OH Total 08/17/24 E11.9 - Type 2 diabetes mellitus without complications, E78.5 - Hyperlipidemia, unspecified, F32.A - Depression, unspecified, F41.9 - Anxiety disorder, unspecified, I10 - Essential (primary) hypertension, I73.9 - Peripheral vascular disease, unspecified, M85.852 - Other specified disorders of bone density and structure, left thigh, Z00.01 - Encounter for general adult medical examination with abnormal findings, Z78.0 - Asymptomatic menopausal state, Z86.0101 - Personal history of adenomatous and serrated colon polyps, Z87.19 - Personal history of other diseases of the digestive system Hemoglobin A1c 08/17/24 E11.9 - Type 2 diabetes mellitus without complications, E78.5 - Hyperlipidemia, unspecified, F32.A - Depression, unspecified, F41.9 - Anxiety disorder, unspecified, I10 - Essential (primary) hypertension, I73.9 - Peripheral vascular disease, unspecified, M85.852 - Other specified disorders of bone density and structure, left thigh, Z00.01 - Encounter for general adult medical examination with abnormal findings, Z78.0 - Asymptomatic menopausal state, Z86.0101 - Personal history of adenomatous and serrated colon polyps, Z87.19 - Personal history of other diseases of the digestive system Microalbumin, Random (w Creat) 08/17/24 E11.9 - Type 2 diabetes mellitus without complications, E78.5 - Hyperlipidemia, unspecified, F32.A - Depression, unspecified, F41.9 - Anxiety disorder, unspecified, I10 - Essential (primary) hypertension, I73.9 - Peripheral vascular disease, unspecified, M85.852 - Other specified disorders of bone density and structure, left thigh, Z00.01 - Encounter for general adult medical examination with abnormal findings, Z78.0 - Asymptomatic menopausal state, Z86.0101 - Personal history of adenomatous and serrated colon polyps, Z87.19 - Personal history of other diseases of the digestive system Referrals Gastroenterology Referral Z86.0101 - Personal history of adenomatous and serrated colon polyps, Z87.19 - Personal history of other diseases of the digestive system Lung Cancer Screening Referral F17.200 - Nicotine dependence, unspecified, uncomplicated, F17.210 - Nicotine dependence, cigarettes, uncomplicated
== END 2024-05-02 09:44 | disposition home or self-care (01) ==
PROVIDERS: PCP Internal Medicine; Visit Provider Internal Medicine
DX: Z00.00 Encounter for general adult medical examination without abnormal findings (principal); E11.51 Type 2 diabetes mellitus with diabetic peripheral angiopathy without gangrene; I73.9 Peripheral vascular disease, unspecified; Z86.0101 Personal history of adenomatous and serrated colon polyps; Z87.19 Personal history of other diseases of the digestive system; M85.852 Other specified disorders of bone density and structure, left thigh; I10 Essential (primary) hypertension; E78.5 Hyperlipidemia, unspecified; F41.9 Anxiety disorder, unspecified; F32.A Depression, unspecified; H91.90 Unspecified hearing loss, unspecified ear; F17.200 Nicotine dependence, unspecified, uncomplicated

== ENCOUNTER → 2024-05-02 08:46 | Outpatient (BNVA) | payer MEDICARE, OTHER, SELFPAY | PROVIDERS: PCP Internal Medicine; Visit Provider Internal Medicine | DX: Z00.01 Encounter for general adult medical examination with abnormal findings (principal); E11.9 Type 2 diabetes mellitus without complications; I73.9 Peripheral vascular disease, unspecified; F41.9 Anxiety disorder, unspecified; F32.A Depression, unspecified; E78.5 Hyperlipidemia, unspecified; I10 Essential (primary) hypertension; M85.852 Other specified disorders of bone density and structure, left thigh; H91.90 Unspecified hearing loss, unspecified ear; F17.210 Nicotine dependence, cigarettes, uncomplicated; Z86.0101 Personal history of adenomatous and serrated colon polyps; Z87.19 Personal history of other diseases of the digestive system; Z71.89 Other specified counseling | CPT/HCPCS: 96127; 99397 ==

== ENCOUNTER 2024-06-13 08:21 | Outpatient (REF) | payer MEDICARE, OTHER, SELFPAY ==
--- NOTE | ~2024-06-13 | US_ITS ---
EXAMINATION: US NONINVASIVE ASSESSMENT OF THE BOTH LOWER EXTREMITY WITH ARTERIAL DUPLEX AND ANKLE BRACHIAL INDICES (ABIS) CLINICAL INFORMATION: Peripheral vascular disease, unspecified COMPARISON: None available. TECHNIQUE: Duplex Doppler techniques with waveform analysis and measurement of velocities in the common femoral, profunda femoris, superficial femoral, popliteal and tibial arteries were performed. In addition, ankle pulse volume recordings, ankle pressure measurements and ankle brachial indices were obtained of the both lower extremity arterial system. The study was performed only at rest. FINDINGS: NONINVASIVE ASSESSMENT OF THE ARTERIES OF BILATERAL LOWER EXTREMITIES WITH ABIs: RIGHT LEG: Ankle-brachial index: 1.0 Ankle PVR: Normal. LEFT LEG: Ankle-brachial index: 0.92. Left ankle PVR: Normal. KEISHA Reference: 0.9 - 1.4 = normal - no significant arterial disease 0.7 - 0.89 = mild peripheral arterial disease 0.51 - 0.69 = moderate peripheral arterial disease 0.50 = severe peripheral arterial disease RIGHT LOWER EXTREMITY DUPLEX ULTRASOUND: Common femoral artery: 125 cm/s. Biphasic waveforms. Profunda femoris artery: 127 cm/s. Triphasic waveforms. Superficial femoral artery (proximal): 129 cm/s. Biphasic to the thoracic waveforms. Superficial femoral artery (mid): 119 cm/s. Biphasic waveforms. Superficial femoral artery (distal): 123 cm/s. Biphasic (waveforms. Popliteal artery: 116 cm/s Triphasic waveforms. Posterior tibial artery: 68 cm/s Biphasic waveforms. Anterior tibialis artery: 72 cm/s. Biphasic waveform. Dorsalis pedis artery: 64 cm/s. Biphasic waveform. Spectral broadening. LEFT LOWER EXTREMITY DUPLEX ULTRASOUND: Common femoral artery: 107 cm/s. Biphasic waveforms. Profunda femoris artery: 107 cm/s. Biphasic waveforms. Superficial femoral artery (proximal): 110 cm/s. Triphasic waveforms. Superficial femoral artery (mid): 114 cm/s. Triphasic waveforms. Superficial femoral artery (distal): 132 cm/s. Biphasic waveform. Spectral broadening. Popliteal artery: 83 cm/s Triphasic waveform. Posterior tibial artery: 15 cm/s Monophasic waveform. Anterior tibialis artery: 59 cm/s. Biphasic waveform. Spectral broadening. Dorsalis pedis artery: 37 cm/s. Biphasic waveform. US/US arterial duplex BI w/ KEISHA IMPRESSION: Mild inflow disease, bilaterally more accentuated on the right lower extremity. Probable diseased left posterior tibialis artery. Electronically signed by: Vik Ruiz MD 06/14/2024 08:18 AM [facility]
--- OUTSIDE RECORDS SUMMARY | 2024-06-13 08:42 | XMS_ITS | Patient Health Record ---
Author Organization [facility] kaya [place] Address [address] [place] [address] Care Team Providers Care Hop Grower Name Role Phone Eulalio JIMENEZ, Heavenly Bell Primary Care Provider Un available Pratik Esposito Unavailable [phone] Allergies No Known Allergies Reason For Referral No Information Medications Medication SIG (Take, Route, Frequency, Duration) Notes Start Date End Date Status Escitalopram Oxalate 20 MG 1 tablet Orally Once a day for 30 day(s) Active metFORMIN HCl 500 MG as directed Orally Twice a day Active buPROPion HCl 150 MG as directed Orally Active Clopidogrel Bisulfate 75 MG 1 tablet Orally Once a day for 30 day(s) Active Tradjenta 5 MG 1 tablet Orally Once a day Not-Taking Extra Depth Diabetic Shoes with 3 Pair Custom heat-molded multi-density innersoles for 1 year Dx: 10/09/2021 Active Atorvastatin Calcium 10 MG 1 tablet Orally Once a day for 30 day(s) Active Simvastatin 10 MG 1 tablet in the even ing Orally Once a day Not-Taking Work Note . .this patient must b e allowed to wear open toe shoes due to painful foot condition until further notice . 09/17/2014 Not-Takin g Ibuprofen 600 600 MG 1 tablet as needed Orally Three times a day for 30 DAYS 10/18/2014 Not-Taking Lisinopril 20 MG 1 tablet Orally Once a day Active Extra-Depth Diabetic Shoes with 3 Pair Custom heat-molded multi-density innersoles . for 1 year . Dx: for . 08/20/2014 Not-T aking Immunizations Vaccine Route Administration Date Status Comme nts COVID-19 Pfizer BioNTech Vaccine Unknown 05/09/2021 Administered 1st 05/30/20 2nd 06/20/20 Social History Tobacco Use: Social History Observation Description Date Details (start date - stop date) Current Smoker NA - NA Tobacco Use/Smoking Question Answer Notes Are you a: current smoker How many cigarettes a day do you smoke? 6-10 Alcohol Screen Question Answer Notes Did you have a drink containing alcohol in the p ast year? No Points 0 Interpretation Negative Tobacco use other than smoking: Question Answer Notes Are you an other tobacco user? No Problems Problem Type SNOMED Code ICD Code Onset Dates Problem Status W/U Status Risk Notes Problem Localized, primary osteoarthritis of the ankle and/or foot (930303726) Primary osteoarthritis, left ankle and foot (M19.072) Active confirmed Problem Polyneuropathy due to type 2 diabetes mellitus (965437324) Type 2 diabetes mellitus with diabetic polyneuropathy (E11.42) Active confirmed Plan Of Treatment Pending Test Test Name Order Date X ray : Foot, right 2V 11/05/2014 X ray : Foot, right 2V 11/15/2014 X ray : Foot, right 2V 11/28/2014 Glucose Fasting 08/20/2014 X ray : Foot, left 3V 10/09/2021 X ray : Foot, right 3V 08/20/2014 [id number] NAIL, 6 OR MORE 08/20/2014 47146- Debride <25 sq cm 08/20/2014 24069- Debride <25 sq cm 09/17/2014 [id number] SKIN LESIONS, 2 TO 4 08/21/19 15 [id number] SKIN LESIONS, 2 TO 4 10/10/19 22 Insurance Providers Payer Name Payer Address Payer Phone Subscriber Number Group Number Insured Name Patient Relationship to Insured Coverage Start Date Coverage End Date Medicare National Govt Sv[employer] [address] [facility] [place] [address] [id number] Jenny Bowden Self - patient is the insured [facility] [address] [place] [address] [phone] [id number] Jenny Bowden Self - patient is the insured Medical (General) History Medical History History ICD Code Diabetic type ll High blood pressure Chicken pox Anxiety Depression Poor circulation Surgical History Surgery Date(Month/Year) ovarian surgery 1971 wisdom teeth extraction 1977 Priscae/Exc skin ulcer right 11/05 15 B/L Stent put in pelvic area 06/10/2021
--- OUTSIDE RECORDS SUMMARY | 2024-06-13 08:42 | XMS_ITS | Patient Health Record ---
Author Organization [facility] Address [address] [place] [address] Care Team Providers Care Diet Clerk Name Role Phone Eulalio JIMENEZ, Heavenly Primary Care Provider Alfredo Barnett Unavailable [phone] REASON FOR REFERRAL No Information MEDICATIONS Medication SIG (Take, Route, Frequency, Duration) Notes Start Date End Date Status Atorvastatin Calcium 10 MG 1 tablet Oral ly every other day Active metFORMIN HCl 500 MG 1 tablet with meals Orally Twice a day Active Lisinopril 20 MG 1 tablet Orally Once a day Active Calcium + D 600-200 MG-UNIT 1 tablet wit h food Orally Once a day Active Aspirin 81 MG 1 tablet Orally Once a day Active Escitalopram Oxalate 20 MG 1 tablet Oral ly Once a day Active IMMUNIZATIONS Vaccine Route Administration Date Status Comme nts Influenza Unknown 12/18/2018 Administered SOCIAL HISTORY Tobacco Use: Social History Observation Description Date Details (start date - stop date) Current Smoker NA - NA Sex Assigned At : Social History Observation Description Sex Assigned At Unknown Tobacco Use/Smoking Question Answer Notes Patient is a current smoker When did you start smoking? mar 2017 How many cigarettes a day do you smoke? 6-10 PROBLEMS Problem Type ICD Code Onset Dates Problem Status W/U Status Risk SNOMED Code Notes Problem Encounter for screening for malignant neoplasm of colon (Z12.11) Active confirmed 815497039 Problem History of adenomatous polyp of colon (Z86.010) Active confirmed 777525781 Problem Weight loss (R63.4) Active confirmed 17402478 Problem Irritable bowel syndrome with diarrhea (K58.0) Active confirmed 255318350 PLAN OF TREATMENT Future Test Test Name Order Date COLONOSCOPY 08/23/2013 COLONOSCOPY 12/14/2019 Next Appt Details Provider Name:Alfredo Antony , 10/03/2024 10:50:00 AM, [address], [address], [place], [address], Insurance Providers Payer Name Payer Address Payer Phone Subscriber Number Group Number Insured Name Patient Relationship to Insured Coverage Start Date Coverage End Date [facility] [address] [facility] [place] [address] [id number] BENI DIAZ Self - patient is the insured MEDICAL (GENERAL) HISTORY Medical History History ICD Code Screening colonoscopy 008-removal of a single small tubular adenoma--also noted to have internal hemorrhoids Hypertension NIDDM Hyperlipidemia Denies ID,CVA,Lung disease,renal disease Neg colonoscopy in 10/2013 Depression/Anxiety IBS with postprandial diarrhea Surgical History Surgery Date(Month/Year) removal of the right ovary
== END 2024-06-13 08:22 | disposition home or self-care (01) ==
LOC: HO.US 08:21
PROVIDERS: PCP Internal Medicine; Visit Provider Surgery Vascular Surgery
DX: I73.9 Peripheral vascular disease, unspecified (principal)
CPT/HCPCS: 93922; 93925

== ENCOUNTER → 2024-06-13 08:23 | Outpatient (BNV) | payer MEDICARE, OTHER, SELFPAY | PROVIDERS: PCP Internal Medicine; Visit Provider Radiology Diagnostic Radiology | DX: I73.9 Peripheral vascular disease, unspecified (principal) | CPT/HCPCS: 93922; 93925 ==

== ENCOUNTER 2024-06-14 08:50 | Outpatient (REF) | payer MEDICARE, OTHER, SELFPAY ==
--- NOTE | ~2024-06-14 | MM_ITS ---
EXAMINATION: MM SCREENING DIGITAL BREAST TOMOSYNTHESIS, BILATERAL CLINICAL INFORMATION: Screening. Asymptomatic. COMPARISON: Mammography: Comparison is made with available priors TECHNIQUE: Digital breast mammography with tomosynthesis is performed in both the craniocaudal and mediolateral oblique views along with computer-aided detection (CAD). FINDINGS: There are scattered areas of fibroglandular density (ACR BI-RADS breast composition Category b). There are no significant masses, abnormal calcifications, or other abnormalities. MM/MM tomosynthesis screening BI IMPRESSION: No mammographic evidence of malignancy. ASSESSMENT: BI-RADS BI-RADS 1 - Negative RECOMMENDATION: Routine annual mammography screening. 1 year F/U This examination should not preclude the clinical evaluation of a suspicious palpable abnormality. This patient's information was entered into a reminder system with a target due date for their next mammogram. Electronically signed by: Marina Felix DO 06/18/2024 04:19 PM [facility]
--- NOTE | ~2024-06-14 | MM_ITS ---
EXAMINATION: DXA BONE DENSITY AXIAL HISTORY: Estrogen deficiency TECHNIQUE: zerved Dual energy absorptiometry (DEXA) of the lumbar spine, total left hip, and femoral neck was performed. COMPARISON: Comparison is made with the prior examination dated 07/18/2020. FINDINGS: The bone mineral density of the lumbar spine is 0.995 with a T-score of -1.5, and a Z-score of 0.2. This represents a BMD change of -7.0% compared to the prior exam. This is statistically significant. The bone mineral density of the left total hip is 0.855 with a T-score of -1.2, and a Z-score of 0.2. This represents BMD change of -4.5% compared to the prior exam. This is statistically significant. The bone mineral density of the left femoral neck is 0.813 with a T-score of -1.6, and a Z-score of 0.1. This represents BMD change of -7.6% compared to the prior exam. FRACTURE RISK: The FRAX index suggests a ten year probability of major osteoporotic fracture of 10.5%, and of hip fracture 2.4%. MM/XR DEXA axial skeleton IMPRESSION: Based on bone mineral density, and according to World Health Organization (WHO) criteria, the diagnosis is consistent with osteopenia. All bone density values are in grams per centimeter squared (g/cm2). Statistically, 68% of repeat scans fall within 1 SD (+/- 0.010 g/cm2 for AP spine L1-L4) and 1 SD (+/- 0.012 g/cm2 for femur total) FRAX is a trademark of the [employer] [place] [employer] Metabolic Bone Disease, a World Health Organization (WHO) Collaborating Center. Electronically signed by: Alfredo Castanon MD 06/14/2024 09:50 AM [facility]
--- OUTSIDE RECORDS SUMMARY | 2024-06-14 09:39 | XMS_ITS | Patient Health Record ---
[facility] kaya [place] Address [address] [place] [address] Care Team Providers Care Life Enrichment Assistant Name Role Phone Eulalio JIMENEZ, Heavenly Bell Primary Care Provider Un available Pratik Esposito Unavailable [phone] Allergies No Known Allergies Reason For Referral [...] primary osteoarthritis of the ankle and/or foot (963187324) Primary osteoarthritis, left ankle and foot (M19.072) Active confirmed Problem Polyneuropathy due to type 2 diabetes mellitus (401037258) Type 2 diabetes mellitus with diabetic polyneuropathy (E11.42) Active confirmed Plan Of Treatment Pending Test Test Name Order Date X ray : Foot, right 2V 11/05/2014 X ray : Foot, right 2V 11/15/2014 X ray : Foot, right 2V 11/28/2014 Glucose Fasting 08/20/2014 X ray : Foot, left 3V 10/09/2021 X ray : Foot, right 3V 08/20/2014 [id number] NAIL, 6 OR MORE 08/20/2014 54972- Debride <25 sq cm 08/20/2014 91350- Debride <25 sq cm 09/17/2014 [id number] SKIN LESIONS, 2 TO 4 08/21/19 15 [id number] SKIN LESIONS, 2 TO 4 10/10/19 22 Insurance Providers Payer Name Payer Address Payer Phone Subscriber Number Group Number Insured Name Patient Relationship to Insured Coverage Start Date Coverage End Date Medicare National Govt Svcs Inc [address] [place] [address] [id number] Jenny Bowden Self - patient is the insured [facility] [address] [place] [address] [id number] Jenny Bowden Self - patient is the insured Medical (General) History Medical History History ICD Code Diabetic type ll High blood pressure Chicken pox Anxiety Depression Poor circulation Surgical History Surgery Date(Month/Year) ovarian surgery 1971 wisdom teeth extraction 1977 Priscae/Exc skin ulcer right 11/05 15 B/L Stent put in pelvic area 06/10/2021
--- OUTSIDE RECORDS SUMMARY | 2024-06-14 09:39 | XMS_ITS | Patient Health Record ---
Author Organization [facility] Address [address] [place] [address] Care Team Providers Care Vp Revenue Cycle Name Role Phone Eulalio JIMENEZ, Heavenly Primary Care Provider Alfredo Barnett Unavailable [phone] REASON FOR REFERRAL No Information MEDICATIONS Medication [...] malignant neoplasm of colon (Z12.11) Active confirmed 071728206 Problem History of adenomatous polyp of colon (Z86.010) Active confirmed 473194180 Problem Weight loss (R63.4) Active confirmed 56167351 Problem Irritable bowel syndrome with diarrhea (K58.0) Active confirmed 395126301 PLAN OF TREATMENT Future Test Test Name Order Date COLONOSCOPY 08/23/2013 COLONOSCOPY 12/14/2019 Next Appt Details Provider Name:Alfredo Antony , 10/03/2024 10:50:00 AM, [address], [address], [place], [address], Insurance Providers Payer Name Payer Address Payer Phone Subscriber Number Group Number Insured Name Patient Relationship to Insured Coverage Start Date Coverage End Date [facility] [address] [facility] [place] [address] [id number] BENI DIAZ Self - patient is the insured MEDICAL (GENERAL) HISTORY Medical History History ICD Code Screening colonoscopy 008-removal of a single small tubular adenoma--also noted to have internal hemorrhoids Hypertension NIDDM Hyperlipidemia Denies [place],CVA,Lung disease,renal disease Neg colonoscopy in 10/2013 Depression/Anxiety IBS with postprandial diarrhea Surgical History Surgery Date(Month/Year) removal of the right ovary
== END 2024-06-14 08:51 | disposition home or self-care (01) ==
LOC: HO.MAMMO 08:50
PROVIDERS: PCP Internal Medicine; Visit Provider Internal Medicine
DX: Z12.31 Encounter for screening mammogram for malignant neoplasm of breast (principal); Z78.0 Asymptomatic menopausal state; M85.852 Other specified disorders of bone density and structure, left thigh
CPT/HCPCS: 77063; 77067; 77080

== ENCOUNTER → 2024-06-14 09:15 | Outpatient (BNV) | payer MEDICARE, OTHER, SELFPAY | PROVIDERS: PCP Internal Medicine; Visit Provider Radiology Diagnostic Radiology | DX: Z12.31 Encounter for screening mammogram for malignant neoplasm of breast (principal) | CPT/HCPCS: 77063; 77067 ==

== ENCOUNTER 2024-06-23 09:26 | Outpatient (AMB) | payer MEDICARE, OTHER, SELFPAY ==
--- NOTE | 2024-06-23 07:43 | MHC.OFFVIS ---
Intake Visit Reasons: Current Smoker Allergies No Known Allergies [No Known Allergies*] Allergy (Verified 05/02/24 09:06) HPI HPI Current Smoker: Details: Initial visit for this 68yo smoker with a 25PYH. Patient started smoking at age 15 for 53 years at 1/2ppd. . Denies marijuana use. Denies second hand smoke exposure. Denies exposure to chemicals or substances like asbestos. . Denies known family history of lung cancer. Denies personal history of cancers. Denies chest CT in last year. . Denies recent travel outside the [place]. Denies recent respiratory illness or recent hospitalization for respiratory issues. Denies testing positive for COVID. Denies receiving COVID Vaccine. . Denies fever, chills, new/worsening cough, hemoptysis, hoarseness or dysphagia. Denies significant chest pain, significant dyspnea or unintentional weight loss. Patient Lung Cancer Screening Questionnaire reviewed with patient by provider. . Shared Decision Making Completed. Patient meets criteria. Discussed in detail with patient, the risk vs benefit of LDCT screening. Patient consents to proceed with scan. Discussed smoking cessation. [facility] Medical History (Updated 06/23/24 @ 09:47 by Leonor Ireland PA-C) Controlled diabetes mellitus type II without complication Essential hypertension Dyslipidemia Peripheral arterial disease Iliac artery stenosis, bilateral Nicotine dependence, cigarettes, uncomplicated Osteopenia of left femoral neck Postmenopausal History of adenomatous polyp of colon History of rectal bleeding Anxiety and depression Numbness and tingling of both lower extremities Abdominal bruit Hearing impaired Surgical History (Updated 06/23/24 @ 09:38 by Leonor Ireland PA-C) History of tonsillectomy History of angioplasty of peripheral vessel History of left oophorectomy History of hammer toe correction History of colonoscopy Family History (Updated 06/23/24 @ 09:41 by Leonor Ireland PA-C) Father CVD (cardiovascular disease) Myocardial infarction Mother Diabetes mellitus HTN (hypertension) Stomach cancer, Onset Age: 62 Brother Myocardial infarction CVD (cardiovascular disease) Sister No problems noted. Sister No problems noted. Son No problems noted. Son No problems noted. Daughter No problems noted. Daughter No problems noted. Social History (Updated 06/23/24 @ 09:47 by Leonor Ireland PA-C) Housing: House Alcohol intake: never Patient Tobacco Use Status: Current everyday Tobacco user Cigarettes Per Day: 6 Years Smoked: (onset 1yo, 1/2ppd x 53yrs, 25pyh) e-Cigarette/Vaping Use: Never Used service: No Current occupational status: retired Cognitive needs: No Hearing needs: No Vision needs: Yes Assessment & Plan Assessment & Plan (1) Nicotine dependence, cigarettes, uncomplicated: Comment: (onset 1yo, 1/2ppd x 53yrs, 25pyh) Code(s): F17.210 - Nicotine dependence, cigarettes, uncomplicated Category: Medical Plan: - SDM visit completed today in office. - Patient meets criteria for LDCT for lung cancer screening purposes and is asymptomatic. - Smoking cessation counseling offered. Patients can always call [phone]. - Will arrange for a LDCT scan of the chest for screening purposes at [facility]. - Risks, benefits, and alternatives were discussed in detail and the patient agrees to proceed. - Risks discussed include but are not limited to: radiation exposure, anxiety during testing and while awaiting results, false negatives, false positives and possibility of additional intervention such as further imaging or surgical procedures for benign disease. - Benefits are obviously detection of lung cancer at an early stage which can lead to improved outcomes. - Discussed the importance of screening program compliance with adherence to yearly LDCT scan as scheduled - or sooner interval scans for personalized screening regimen. - Discussed follow up plan. Our office will send a letter discussing results and if needed set up phone call and office visit based on CT findings. - Patient educated on results categorization and the management decisions for suspicious findings potentially found on the screening LDCT scan. Any patient with a Lung RADS score of 3 or 4 will be reviewed by a multidisciplinary team at [facility] to form a plan of action in regards to scan findings. - If further work up is warranted for a suspicious lung finding this will be followed by the Lung Cancer Screening program in conjunction with the Thoracic Surgery Department at [facility]. - A copy of the office note and LDCT will be sent to the patient's PCP - as well as documentation on any associated further plans of care. - Incidental findings on LDCT are the PCP's responsibility. These findings are indicated with an S finding on the LDCT Assessment. A note discussing the findings will be sent to the PCP who is then responsible for further management. - All questions answered.? Coding Level of Care Code Lung Cancer Screening G0296 Diagnoses Nicotine dependence, cigarettes, uncomplicated F17.210
--- OUTSIDE RECORDS SUMMARY | 2024-06-23 10:11 | XMS_ITS | Patient Health Record ---
Author Organization [facility] kaya [place] Address [address] [place] [address] Care Team Providers Care Seals Engraver Name Role Phone Eulalio JIMENEZ, Heavenly Bell Primary Care Provider Un available Pratik Esposito Unavailable [phone] Allergies No Known Allergies Reason For Referral [...] primary osteoarthritis of the ankle and/or foot (263879707) Primary osteoarthritis, left ankle and foot (M19.072) Active confirmed Problem Polyneuropathy due to type 2 diabetes mellitus (091623562) Type 2 diabetes mellitus with diabetic polyneuropathy (E11.42) Active confirmed Plan Of Treatment Pending Test Test Name Order Date X ray : Foot, right 2V 11/05/2014 X ray : Foot, right 2V 11/15/2014 X ray : Foot, right 2V 11/28/2014 Glucose Fasting 08/20/2014 X ray : Foot, left 3V 10/09/2021 X ray : Foot, right 3V 08/20/2014 [id number] NAIL, 6 OR MORE 08/20/2014 92583- Debride <25 sq cm 08/20/2014 32953- Debride <25 sq cm 09/17/2014 [id number] SKIN LESIONS, 2 TO 4 08/21/19 15 [id number] SKIN LESIONS, 2 TO 4 10/10/19 22 Insurance Providers Payer Name Payer Address Payer Phone Subscriber Number Group Number Insured Name Patient Relationship to Insured Coverage Start Date Coverage End Date Medicare National Govt Sv[employer] [address] [facility] [place] [address] [id number] Jenny Bowden Self - patient is the insured [facility] [address] [place] [address] [phone] [id number] Jenny Bowden Self - patient is the insured Medical (General) History Medical History History ICD Code Diabetic type ll High blood pressure Chicken pox Anxiety Depression Poor circulation Surgical History Surgery Date(Month/Year) ovarian surgery 1971 wisdom teeth extraction 1977 Priscae/Exc skin ulcer right 11/05 15 B/L Stent put in pelvic area 06/10/2021
--- OUTSIDE RECORDS SUMMARY | 2024-06-23 10:11 | XMS_ITS | Patient Health Record ---
Author Organization [facility] Address [address] [place] [address] Care Team Providers Care Soap Slabber Name Role Phone Eulalio JIMENEZ, Heavenly Primary Care Provider Alfredo Barnett Unavailable [phone] Reason For Referral No Information Medications Medication [...] tablet Oral ly Once a day Active Immunizations Vaccine Route Administration Date Status Comme nts Influenza Unknown 12/18/2018 Administered Social History Tobacco Use: Social History Observation Description Date Details (start date - stop date) Current Smoker NA - NA Tobacco Use/Smoking Question Answer Notes Patient is a current smoker When did you start smoking? mar 2017 How many cigarettes a day do you smoke? 6-10 Section Notes: Nonsmoker; no sig alcohol Smoker; no sig alcohol Problems Problem Type SNOMED Code ICD Code Onset Dates Problem Status W/U Status Risk Notes Problem 069667897 Encounter for screening for malignant neoplasm of colon (Z12.11) Active confirmed Problem 105345841 History of adenomatous polyp of colon (Z86.010) Active confirmed Problem 40910039 Weight loss (R63.4) Active confirmed Problem 883042685 Irritable bowel syndrome with diarrhea (K58.0) Active confirmed Plan Of Treatment Future Test Test Name Order Date COLONOSCOPY 08/23/2013 COLONOSCOPY 12/14/2019 Next Appt Details Provider Name:Alfredo Antony , 10/03/2024 10:50:00 AM, [address], [address], [place], [address], Insurance Providers Payer Name Payer Address Payer Phone Subscriber Number Group Number Insured Name Patient Relationship to Insured Coverage Start Date Coverage End Date [facility] [address] [facility] [place] [address] [id number] BENI DIAZ Self - patient is the insured Medical (General) History Medical History History ICD Code Screening colonoscopy 008-removal of a single small tubular adenoma--also noted to have internal hemorrhoids Hypertension NIDDM Hyperlipidemia Denies [place],CVA,Lung disease,renal disease Neg colonoscopy in 10/2013 Depression/Anxiety IBS with postprandial diarrhea Surgical History Surgery Date(Month/Year) removal of the right ovary
== END 2024-06-23 09:47 | disposition home or self-care (01) ==
PROVIDERS: PCP Internal Medicine; Visit Provider Physician Assistant Medical
DX: F17.210 Nicotine dependence, cigarettes, uncomplicated (principal)
CPT/HCPCS: G0296

== ENCOUNTER 2024-06-23 09:48 | Outpatient (REF) | payer MEDICARE, OTHER, SELFPAY ==
--- NOTE | ~2024-06-23 | CT_ITS ---
CLINICAL HISTORY: F17.210 - Nicotine dependence, cigarettes, uncomplicated CT lung cancer screening (LDCT) Comparison: None Technique: Axial CT images of the chest using low-dose technique. Referring provider counseled the patient on shared decision-making for LDCT screening. Additional counseling was provided on smoking cessation. Effective radiation dose total: DLP 29 mGycm, CTDIvol 0.9 mGy. Findings: Lung: Mild centrilobular emphysema. No pulmonary nodule. Coronary artery calcifications: Mild Limited upper abdomen: Unremarkable Other: None Impression: LungRADS 1: Negative exam. Continue annual screening with low dose Chest CT in 12 months. ##L1# Category 1: Normal; continue annual screening Category 2: Benign appearance or behavior, continue annual screening Category 3: Probably benign, [address] recommended Category 4A: Suspicious, [address] recommended; may consider PET/CT Category 4B: Suspicious, Additional diagnostics and/or tissue sampling recommended Category 4X: Suspicious, Additional diagnostics and/or tissue sampling recommended Category 0: Recalls (incomplete screen due to Incomplete coverage, Noise, Respiratory motion, Expiration, Obscured by acute abnormality) This document has been electronically signed by: Bushra Flores MD on 06/26/2024 12:51:36
== END 2024-06-23 09:49 | disposition home or self-care (01) ==
LOC: HO.CT 09:48
PROVIDERS: PCP Internal Medicine; Visit Provider Physician Assistant Medical
DX: Z12.2 Encounter for screening for malignant neoplasm of respiratory organs (principal); F17.210 Nicotine dependence, cigarettes, uncomplicated
CPT/HCPCS: 71271; G0296

== ENCOUNTER → 2024-06-23 09:49 | Outpatient (BNV) | payer MEDICARE, OTHER, SELFPAY | PROVIDERS: PCP Internal Medicine; Visit Provider Nuclear Medicine | DX: F17.210 Nicotine dependence, cigarettes, uncomplicated (principal) | CPT/HCPCS: 71271 ==

== ENCOUNTER → 2024-06-27 15:17 | Outpatient (BNVA) | payer MEDICARE, OTHER, SELFPAY | PROVIDERS: PCP Internal Medicine; Visit Provider Surgery Vascular Surgery | DX: I73.9 Peripheral vascular disease, unspecified (principal) | CPT/HCPCS: 99212 ==

== ENCOUNTER 2024-09-02 14:33 | Outpatient (REF) | payer MEDICARE, OTHER, SELFPAY ==
[2024-09-02 15:08] LABS: MANUAL DIFF FLAG NO
[2024-09-02 15:15] LABS: Basophils Absolute Auto 0.1 X10*3/uL (0.0-0.2); Basophils Percent Auto 0.9 % (0-2); Eosinophils Absolute Auto 0.1 X10*3/uL (0.0-0.4); Eosinophils Percent Auto 1.7 % (0-4); Hematocrit 39.9 % (37.0-47.0); Hemoglobin 13.5 g/dl (12.0-16.0); Imm Gran Abs Auto 0.03 X10*3/uL (0.00-0.03); Imm Gran Pct Auto 0.4 % (0.0-0.4); Lymphocytes Absolute Auto 2.8 X10*3/uL (1.2-4.9); Lymphocytes Percent Auto 33.6 % (20-40); Mean Corpuscular HGB Conc 33.8 g/dl (31.0-35.0); Mean Corpuscular Volume 91.7 fL (80.0-98.0); Mean Platelet Volume 9.5 fL (9.4-12.3); Monocytes Absolute Auto 0.8 X10*3/uL (0.1-1.2); Monocytes Percent Auto 9.1 % (2-11); Neutrophils Absolute Auto 4.6 x10*3/uL (2.0-8.3); Neutrophils Percent Auto 54.3 % (45-73); Platelet Count 224 X10*3/uL (160-400); Red Blood Count 4.35 X10*6/uL (4.20-5.50); Red Cell Distribution Width 13.2 % (11.0-16.0); White Blood Count 8.4 X10*3/uL (4.8-10.8)
[2024-09-02 15:47] LABS: Creatinine Urine 127.05 mg/dL; Microalbum/Creatinine Ratio Ur 14.9 ug/mg cr (<30)
[2024-09-02 15:52] LABS: Alanine Aminotransferase 12 U/L (0-31); Albumin Level 3.9 g/dL (3.5-5.0); Anion Gap 13 (12-20); Aspartate Amino Transferase 22 U/L (5-31); Bilirubin Total 0.9 mg/dL (0.0-1.0); Blood Urea Nitrogen 20 mg/dL (9-16); Calcium 8.7 mg/dL (8.4-10.2); Carbon Dioxide 22 mmol/L (22-29); Chloride 110 mmol/L (96-108); Cholesterol 165 mg/dL (<200); Estimated Glomerular Filt Rate > 60; Glucose Fasting 84 mg/dL (60-99); HDL Cholesterol 47 mg/dL (>40); LDL Cholesterol Calculated 98 mg/dL (<100); Sodium 141 mmol/L (135-145); Total Protein 6.6 g/dL (6.5-8.0); Triglycerides 102 mg/dL (<150)
[2024-09-02 16:00] LABS: Vitamin D 25-OH Total 55.9 ng/mL (>30)
[2024-09-02 16:01] LABS: Estimated Average Glucose 120 mg/dL; Hemoglobin A1C 139.3211 umol/L; Hemoglobin A1c % 5.8 % (<6.0); Total Hemoglobin (HGBA1C) 3525.4508 umol/L
[2024-09-02 16:13] LABS: Alkaline Phosphatase 73 U/L (39-117)
== END 2024-09-02 14:34 | disposition home or self-care (01) ==
LOC: HO.HMGCLDS 14:33
PROVIDERS: PCP Internal Medicine; Visit Provider Internal Medicine
DX: Z00.01 Encounter for general adult medical examination with abnormal findings (principal); Z87.19 Personal history of other diseases of the digestive system; M85.852 Other specified disorders of bone density and structure, left thigh; Z86.0101 Personal history of adenomatous and serrated colon polyps; I73.9 Peripheral vascular disease, unspecified; F41.9 Anxiety disorder, unspecified; F32.A Depression, unspecified; Z78.0 Asymptomatic menopausal state; E78.5 Hyperlipidemia, unspecified; I10 Essential (primary) hypertension; E11.9 Type 2 diabetes mellitus without complications
CPT/HCPCS: 36415; 80053; 80061; 82043; 82306; 82570; 83036; 85025

== ENCOUNTER 2024-09-05 08:00 | Outpatient (AMB) | payer MEDICARE, OTHER, SELFPAY ==
[2024-09-05 08:05] VITALS: BP 152/70; PULSE 66; RESP 14; TEMP 36.6; O2SAT 99; BMI 25.5
--- NOTE | 2024-09-05 08:05 | A.OFFPC_ITS ---
Vital Signs 09/05/24 08:05 Height 5 ft 1 in Weight 135 lb BMI 25.5 BP 152/70 H Blood Pressure Location Rt brachial Position Sitting Respiration 14 Pulse 66 Pulse Source Pulse Oximeter Temp 97.9 F Temp Source Oral Pulse Oximetry (%) 99 Oxygen Delivery Method Room Air Comment Patient has not yet taken her lisinopril this morning Intake Visit Reasons: 4 months follow up Intake Note: Pt is here today for her 4mo. f/u Allergies No Known Allergies [No Known Allergies*] Allergy (Verified 09/05/24 08:20) Medication List - Last Reconciled 09/05/24 by Heavenly Tsai MD ascorbate calcium (vitamin C) 1 g PO DAILY aspirin 81 mg PO DAILY atorvastatin 10 mg PO Q2D 90 days bupropion HCl XL 150 mg PO QAM cholecalciferol (vitamin D3) 3,000 units PO DAILY escitalopram oxalate 20 mg PO DAILY lisinopril 20 mg PO DAILY lorazepam 0.5 mg PO DAILY PRN magnesium 300 mg PO DAILY metformin 1,000 mg PO ONCE Tobacco use date assessed: 09/05/24 Fall risk assessment: No Falls in past year Last assessed Fall Risk: 09/05/24 Dental Screening Dental Screen Date: 09/05/24 Did you have a dental visit in the last 12 months?: No Did you have a dental problem in the last 6 months where you did not have access to dental care?: No Was dental information given to patient?: Patient has dentist HPI 4 months follow up HPI Details 68 year-old female with past medical his tory significant for diabetes mellitus osteopenia of left femoral neck, impaired, has peripheral arterial disease, anxiety depression, dyslipidemia, hypertension presenting today for her. She has been taking metformin 1000 mg once a day, with latest hemoglobin A1c at 5.8% with negative microalbuminuria. She has dyslipidemia currently on atorvastatin 10 mg every other day with latest fasting labs showed lipids within normal limit. Blood pressure today is elevated, currently on lisinopril 20 mg once a day. Patient states she forgot to take her blood pressure medicines this morning prior to coming to her appointment. She takes escitalopram 20 mg daily and bupropion HCL 150 mg daily in the morning, and has lorazepam to take as needed for acute anxiety attacks which has been helping control her depression anxiety Had a recent bone density scan done which showed presence of osteopenia in lumbar spine left femoral neck, normal in left femur. No history of fractures. Due for her repeat colonoscopy screening this year, has appointment already scheduled with Dr. Antony later this month. She has peripheral vascular disease s/p bilateral iliac artery stenting followed by Dr. Mcbride . Since the procedure on May 21, 2021, she reports mild symptoms of restless leg syndrome that occur infrequently at night but do not interfere significantly with her daily activities. She continues to ambulate without difficulty, able to walk several blocks comfortably. She continues to smoke cigarettes but now cut down to 6 a day. She had recent lung cancer screening with a low-dose CAT scan done earlier this year which showed negative findings. [facility] Medical History (Updated 09/05/24 @ 08:45 by Heavenly Tsai MD) Controlled diabetes mellitus type II without complication Essential hypertension Dyslipidemia Peripheral arterial disease Iliac artery stenosis, bilateral Nicotine dependence, cigarettes, uncomplicated Osteopenia of left femoral neck Postmenopausal History of adenomatous polyp of colon History of rectal bleeding Anxiety and depression Numbness and tingling of both lower extremities Abdominal bruit Hearing impaired Surgical History History of tonsillectomy History of angioplasty of peripheral vessel History of left oophorectomy History of hammer toe correction History of colonoscopy Family History Father CVD (cardiovascular disease) Myocardial infarction Mother Diabetes mellitus HTN (hypertension) Stomach cancer, Onset Age: 62 Brother Myocardial infarction CVD (cardiovascular disease) Sister No problems noted. Sister No problems noted. Son No problems noted. Son No problems noted. Daughter No problems noted. Daughter No problems noted. Social History Housing: House Alcohol intake: never Patient Tobacco Use Status: Current everyday Tobacco user Cigarettes Per Day: 6 Years Smoked: (onset 1yo, 1/2ppd x 53yrs, 25pyh) Packs per year/per ci.00 e-Cigarette/Vaping Use: Never Used service: No Current occupational status: retired Cognitive needs: No Hearing needs: No Vision needs: Yes Questionnaire PHQ-9 Over the last 2 weeks, how often have you been bothered by any of the following problems? 1. Little interest or pleasure in doing things: not at all 2. Feeling down, depressed, or hopeless: not at all 3. Trouble falling or staying asleep, or sleeping too much: not at all 4. Feeling tired or having little energy: not at all 5. Poor appetite or overeating: not at all 6. Feeling bad about yourself - or that you are a failure or have let yourself or your family down: not at all 7. Trouble concentrating on things, such as reading the newspaper or watching television: not at all 8. Moving or speaking so slowly that other people could have noticed. Or the opposite - being so fidgety or restless that you have been moving around a lot more than usual: not at all 9. Thoughts that you would be better off or of hurting yourself in some way: not at all Total score: 0 Depression Screening Interpretation: Negative (Depression, Controlled on present treatment) Depression Screening Done: Yes 44860 - PHQ-9 Billing: Yes Source: Developed by Drs. Alfredo Gorman, Kim Carson, Maik James and colleagues, with an educational sourav from [employer]. Thrive Questionnaire Date Thrive assessed: 05/02/24 I am a: Patient What is your living situation today?: I have a steady place to live Within the past 12 months, did the food you bought not last and you didn't have the money to get more?: Never true Within the past 12 months, did you worry whether your food would run out before you got money to buy more?: Never true Do you have trouble paying for medicines?: No Do you have trouble getting transportation to medical appointments?: No Do you have trouble paying your heating and electricity bill?: No Do you have trouble taking care of your child, family member or friend?: No Do you have trouble with day-to-day activities such as bathing, preparing meals, shopping, managing finances, etc.?: No Are you currently unemployed and looking for a job?: No Are you interested in more education?: No Please select the resources that you would like help with: None Currently or been in a relationship where the following occur: No concerns reported THRIVE Score: 0 AUDIT C Alcohol Use Questionnaire (AUDIT-C) 1. How often do you have a drink containing alcohol?: Never Total Score: 0 CYDNEY-7 AMB Questionnaire CYDNEY-7 Date CYDNEY - 7 assessed: 09/05/24 Feeling nervous, anxious, or on edge: 0 = Not at all Not being able to stop or control worryin = Several days Worrying too much about different things: 1 = Several days Trouble relaxin = Not at all Being so restless that it is hard to sit still: 0 = Not at all Becoming easily annoyed or irritable: 0 = Not at all Feeling afraid as if something awful might happen: 0 = Not at all Total CYDNEY-7 score (0-4 normal; 5-9 mild; 10-14 moderate; 15-21 severe): 2 Source: Developed by Drs. Alfredo Gorman, Kim Carson, Maik James and colleagues, with an educational sourav from [employer]. CYDNEY-7 Assessment Billing CYDNEY-7 Assessment Tool: CYDNEY-7 Assessment 86902 Review of Systems Const Reports no additional complaints Eyes Reports no additional complaints ENT Reports Normal hearing present Card Denies chest pain, Denies chest pain at rest, Denies chest pain with activity and Denies pedal edema Resp Denies cough GI Denies abdominal pain Reports no additional complaints Musc Denies abnormal gait, Denies muscle cramps and Denies radiating pain into limb Skin/Breast Denies skin ulcer and Denies wounds Neuro Reports Normal hearing present, Denies abnormal gait and Denies Sensory deficit (Neuro) Psych Reports no additional complaints Endo Reports no additional complaints Maikel/Lymph Reports no additional complaints Aller/Immun Reports no additional complaints Physical exam (Primary Care) Vital Signs: Last Vital Signs Temp 97.9 F 09/05/24 08:05 Pulse 66 09/05/24 08:05 Resp 14 09/05/24 08:05 BP 152/70 H 09/05/24 08:05 Pulse Ox 99 09/05/24 08:05 Oxygen Delivery Method Room Air 09/05/24 08:05 BMI result Body Mass Index 25.5 Tobacco/Smoking Status: Tobacco use Status Tobacco use date assessed 09/05/24 09/05/24 08:06 Patient Tobacco Use Status Current everyday Tobacco 09/05/24 08:06 e-Cigarette/Vaping Use Never Used 09/05/24 08:06 Depression Screening Interpretation: Negative (Depression, Controlled on present treatment) Thrive Assessment: Date of Thrive Assessment Date Thrive assessed 05/02/24 09/05/24 08:06 Currently or been in a relationship where the following occur: No concerns reported Const General: cooperative, healthy appearing, no acute distress and alert Orientation/consciousness: patient oriented x3 HENMT Head: Yes normocephalic Ears: external ears normal General nose exam: Normal external nose present Face and sinus: Yes face symmetric Mouth: oropharynx normal and moist mucous membranes Eyes Conjunctivae: conjunctivae normal Sclerae: sclerae normal Pupils: Equal, round and reactive pupils present EOM: EOMs intact bilaterally Neck Neck: Yes full ROM and Yes no lymphadenopathy Thyroid: Thyroid normal Resp Effort & Inspection: normal respiratory effort and able to speak in complete sentences Auscultation: clear to auscultation bilaterally Cardio Rate: regular rate Rhythm: regular rhythm Heart sounds: S1 normal heart sound present and S2 normal heart sound present GI Inspection: Yes normal to inspection Palpation (GI): Soft to palpation, nontender, no guarding, no masses and no pulsatile masses Auscultation: normal bowel sounds General: Yes no CVA tenderness Back/Spine/Pelvis Back: no CVA tenderness Skin General skin exam: no rashes or lesions noted Neuro General: patient oriented x3, gait normal, moves all extremities, no focal motor deficits and CN's II-XI intact bilaterally Cranial nerves: Yes Equal, round and reactive pupils present and Yes Normal hearing present Cognition (Neuro): normal cognition Gait exam (Neuro): Normal gait present Motor exam (neuro): 5/5 motor strength present throughout Sensory Exam: No Sensory deficit (Neuro) Extrem General: Yes normal to inspection, Yes full ROM, Yes no pedal edema and Yes normal gait Psych Appearance: grossly normal and well kempt Mental Status: mental status grossly normal Speech and movement: Normal speech and movement present Affect: normal affect Results Reviewed Results Reviewed: Name: Jenny Ash Svetlana Age/Sex: 68/F : 1955 Unit#: [id number] Attend Dr: Heavenly Tsai MD Re09/02/24 Status: DEP REF Location: [facility] Disch: SPEC : [id number] JILL: 09/02/24-3478 STATUS: COMP REQ : [id number] RECD: 09/02/24-[address]: Heavenly Tsai MD COMP: 09/02/24-1436 ENTERED: 09/02/24-[address] [facility] [address]: ORDERED: CBC Auto Diff Test Result Flag Reference WBC 8.4 4.8-10.8 X10*3/uL RBC 4.35 4.20-5.50 X10*6/uL HGB 13.5 12.0-16.0 g/dl HCT 39.9 37.0-47.0 % MCV 91.7 80.0-98.0 fL MCH 31.0 27.0-33.0 pg MCHC 33.8 31.0-35.0 g/dl RDW 13.2 11.0-16.0 % PLT 224 160-400 X10*3/uL MPV 9.5 9.4-12.3 fL Neut Pct Auto 54.3 45-73 % ImGran Pct Auto 0.4 0.0-0.4 % Lymp Pct Auto 33.6 20-40 % [place] Pct Auto 9.1 2-11 % Eos Pct Auto 1.7 0-4 % Baso Pct Auto 0.9 0-2 % NRBC Pct Auto 0.0 0.0-0.2 /100WBC ANC Neut Abs # 4.6 2.0-8.3 x10*3/uL ImGran Abs Auto 0.03 0.00-0.03 X10*3/uL Lymph Abs Auto 2.8 1.2-4.9 X10*3/uL [place] Abs Auto 0.8 0.1-1.2 X10*3/uL Eos Abs Auto 0.1 0.0-0.4 X10*3/uL Baso Abs Auto 0.1 0.0-0.2 X10*3/uL NRBC Abs Auto 0.000 0.0-0.012 X10*3/uL Name: Jenny Ash Age/Sex: 68/F : 1955 Unit#: [id number] Attend Dr: Heavenly Tsai MD Re09/02/24 Status: DEP REF Location: [facility] Disch: SPEC : [id number] JILL: 09/02/24 STATUS: COMP REQ : [id number] RECD: 09/02/[address]: Heavenly Tsai MD COMP: 09/02/24 ENTERED: 09/02/[address] [facility] [address]: ORDERED: CMP Fast, Lipid Panel, Vitamin D 25-OH Test Result Flag Reference Sodium 141 135-145 mmol/L Potassium 4.0 3.3-5.1 mmol/L CL 110 H 96-108 mmol/L CO2 22 22-29 mmol/L Gap 13 12-20 BUN 20 H 9-16 mg/dL Creat 0.74 0.5-1.4 mg/dL eGFR > 60 Chronic Kidney Disease: Estimated GFR < 60 mL/min/1.73m2 Severe Kidney Disease: Estimated GFR < 15 mL/min/1.73m2 FBS 84 60-99 mg/dL CA 8.7 8.4-10.2 mg/dL Total Bili 0.9 0.0-1.0 mg/dL AST (GOT) 22 5-31 U/L ALT (GPT) 12 0-31 U/L Protein, Total 6.6 6.5-8.0 g/dL Alb 3.9 3.5-5.0 g/dL Triglyceride 102 <150 mg/dL Desirable Triglyceride: less than 150 mg/dL Borderline High Triglyceride 150-199 mg/dL High Triglyceride: 200-499 mg/dL Very High Triglyceride: greater than or equal to 5OO mg/dL Cholesterol 165 <200 mg/dL Desirable Cholesterol: less than 200 mg/dL Borderline High Cholesterol: 200-239 mg/dL High Cholesterol: greater than 239 mg/dL LDL Calculated 98 <100 mg/dL Desirable LDL: less than 100 mg/dL Near Optimal/Above Optimal LDL: 110-129 mg/dL Borderline High LDL: 130-159 mg/dL High LDL: 160-189 mg/dL Very High LDL: greater than or equal to 190 mg/dL HDL 47 >40 mg/dL Desirable HDL: greater than 40 mg/dL Note: This HDL assay may give artificially low results in patients with liver disease. 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 hay stacker operator use Essential hypertension I10 Dyslipidemia E78.5 Peripheral arterial disease I73.9 History of adenomatous polyp of colon Z86.0101 Nicotine dependence, cigarettes, uncomplicated F17.210 Osteopenia of left femoral neck M85.852 Anxiety and depression F41.9; F32.A Additional Codes PHQ-9 - 64691 - PHQ-9 Billing: Yes ([id number]) CYDNEY-7 Assessment Billing - CYDNEY-7 Assessment Tool: CYDNEY-7 Assessment 88415 ([id number]) Assessment & Plan Assessment & Plan (1) Controlled diabetes mellitus type II without complication: Code(s): E11.9 - Type 2 diabetes mellitus without complications Category: Medical Qualifiers: Diabetes mellitus senior living insulin use: without hay stacker operator use Qualified Code(s): E11.9 - Type 2 diabetes mellitus without complications Plan: Continued on metformin 1000 mg once a day. (2) Essential hypertension: Code(s): I10 - Essential (primary) hypertension Category: Medical Plan: Blood pressure elevated today, patient however has not yet taken her lisinopril this morning prior to visit. Patient advised to take her medicines regularly, Blood pressure goal is less than 130/80. Continue with current medication. Reinforced importance of following a low sodium diet, getting regular exercise, and lowering stress levels. (3) Dyslipidemia: Code(s): E78.5 - Hyperlipidemia, unspecified Category: Medical Plan: Reviewed recent fasting lipid profile with patient with levels within normal . Continue atorvastatin 10 mg taken 1 tablet every other day , in addition to adherence to low-cholesterol diet and regular exercise, at least 30 minutes 3 to 4 times a week. Advised patient to make healthy food choices, eat more fruits, vegetables, whole grains, wild caught fish and low-fat dairy. Limit amount of meat and fried or fatty food products, as well as processed foods and fast foods. Follow-up scheduled with repeat fasting lipid panel in April 2025 prior to her schedule PE (4) Peripheral arterial disease: Comment: 05/21/2021 - bilateral common iliac stenting Code(s): I73.9 - Peripheral vascular disease, unspecified Category: Medical Plan: Doing well after bilateral iliac stenting, followed by Dr. Murrieta, continued on aspirin 81 mg daily (5) History of adenomatous polyp of colon: Comment: (TA on 2007 scope - normal 2023 & 2019 scope) Code(s): Z86.0101 - Personal history of adenomatous and serrated colon polyps Category: Medical Plan: Has appointment already scheduled with Dr. Antony later this month for a repeat screening colonoscopy (6) Nicotine dependence, cigarettes, uncomplicated: Comment: (onset 1yo, 1/2ppd x 53yrs, 25pyh) Code(s): F17.210 - Nicotine dependence, cigarettes, uncomplicated Category: Medical Plan: Patient strongly advised to stop smoking, as smoking damages blood vessels, degenerative of joints and spine, damage to lungs and heart., predisposes to developing certain cancers like lung, breast, bladder, colon. Recommended to try decreasing cigarette use by 1-2 cigarettes a day. Advised to monitor what triggers are for smoking so that this can be discussed on the next office visit. We can discuss different options to quit smoking when ready. Recent lung cancer screening came back negative (7) Osteopenia of left femoral neck: Comment: (Bone Dexa Femoral T-score: -1.1 on 07/18/20) Code(s): M85.852 - Other specified disorders of bone density and structure, left thigh Category: Medical Plan: Continue with regular weight-bearing exercise, take adequate calcium from dietary sources and continue with vitamin-D 3 supplements. Repeat bone density scan again in 2026 (8) Anxiety and depression: Code(s): F41.9 - Anxiety disorder, unspecified; F32.A - Depression, unspecified Category: Medical Plan: Stable and controlled on present treatment with escitalopram and bupropion, rarely needing to take her lorazepam Orders: Orders Lipid Panel 04/21/25 E11.9 - Type 2 diabetes mellitus without complications, E78.5 - Hyperlipidemia, unspecified, I10 - Essential (primary) hypertension, I73.9 - Peripheral vascular disease, unspecified, M85.852 - Other specified disorders of bone density and structure, left thigh Basic Metabolic Panel Fasting 04/21/25 E11.9 - Type 2 diabetes mellitus without complications, E78.5 - Hyperlipidemia, unspecified, I10 - Essential (primary) hypertension, I73.9 - Peripheral vascular disease, unspecified, M85.852 - Other specified disorders of bone density and structure, left thigh Aspartate Amino Transferase 04/21/25 E11.9 - Type 2 diabetes mellitus without complications, E78.5 - Hyperlipidemia, unspecified, I10 - Essential (primary) hypertension, I73.9 - Peripheral vascular disease, unspecified, M85.852 - Other specified disorders of bone density and structure, left thigh Hemoglobin A1c 04/21/25 E11.9 - Type 2 diabetes mellitus without complications, E78.5 - Hyperlipidemia, unspecified, I10 - Essential (primary) hypertension, I73.9 - Peripheral vascular disease, unspecified, M85.852 - Other specified disorders of bone density and structure, left thigh Microalbumin, Random (w Creat) 04/21/25 E11.9 - Type 2 diabetes mellitus without complications, E78.5 - Hyperlipidemia, unspecified, I10 - Essential (primary) hypertension, I73.9 - Peripheral vascular disease, unspecified, M85.852 - Other specified disorders of bone density and structure, left thigh Vitamin D 25-OH Total 04/21/25 E11.9 - Type 2 diabetes mellitus without complications, E78.5 - Hyperlipidemia, unspecified, I10 - Essential (primary) hypertension, I73.9 - Peripheral vascular disease, unspecified, M85.852 - Other specified disorders of bone density and structure, left thigh Alanine Aminotransferase 04/21/25 E11.9 - Type 2 diabetes mellitus without complications, E78.5 - Hyperlipidemia, unspecified, I10 - Essential (primary) hypertension, I73.9 - Peripheral vascular disease, unspecified, M85.852 - Other specified disorders of bone density and structure, left thigh Medications: Changed From metformin 1,000 mg PO BID 180 tabs 1RF To metformin 1,000 mg PO ONCE Refilled atorvastatin 10 mg PO Q2D 90 days 45 tabs 1RF E78.5 - Hyperlipidemia, unspecified bupropion HCl XL 150 mg PO QAM 90 tabs 1RF F32.9 - Major depressive disorder, single episode, unspecified, Z71.6 - Tobacco abuse counseling escitalopram oxalate 20 mg PO DAILY 90 tabs 1RF
--- OUTSIDE RECORDS SUMMARY | 2024-09-05 08:05 | XMS_ITS | Patient Health Record ---
[facility] Lueders Address [address] [place] [address] Care Team Providers Care Manager Staffing Name Role Phone Eulalio JIMENEZ, Heavenly Bell Primary Care Provider Un available Pratik Esposito Unavailable [phone] Allergies No Known Allergies Reason For Referral [...] primary osteoarthritis of the ankle and/or foot (586030749) Primary osteoarthritis, left ankle and foot (M19.072) Active confirmed Problem Polyneuropathy due to type 2 diabetes mellitus (434325048) Type 2 diabetes mellitus with diabetic polyneuropathy (E11.42) Active confirmed Plan Of Treatment Pending Test Test Name Order Date X ray : Foot, right 2V 11/05/2014 X ray : Foot, right 2V 11/15/2014 X ray : Foot, right 2V 11/28/2014 Glucose Fasting 08/20/2014 X ray : Foot, left 3V 10/09/2021 X ray : Foot, right 3V 08/20/2014 [id number] NAIL, 6 OR MORE 08/20/2014 58503- Debride <25 sq cm 08/20/2014 40980- Debride <25 sq cm 09/17/2014 [id number]-VCZC SKIN LESIONS, 2 TO 4 08/21/19 15 [id number]-[facility] SKIN LESIONS, 2 TO 4 10/10/19 22 Insurance Providers Payer Name Payer Address Payer Phone Subscriber Number Group Number Insured Name Patient Relationship to Insured Coverage Start Date Coverage End Date Medicare [employer] [address] [place] [address] [id number] Jenny Bowden Self - patient is the insured [facility] [address] [place] [id number] Jenny Bowden Self - patient is the insured Medical (General) History Medical History History ICD Code Diabetic type ll High blood pressure Chicken pox Anxiety Depression Poor circulation Surgical History Surgery Date(Month/Year) ovarian surgery 1971 wisdom teeth extraction 1977 Priscae/Exc skin ulcer right 11/05 15 B/L Stent put in pelvic area 06/10/2021
--- OUTSIDE RECORDS SUMMARY | 2024-09-05 08:05 | XMS_ITS | Patient Health Record ---
Author Organization [facility] Address [address] [place] [id number] Care Team Providers Care Wharf Tally Clerk Name Role Phone Eulalio JIMENEZ, Heavenly Primary Care Provider Alfredo Barnett Unavailable [phone] Reason For Referral No Information Medications Medication [...] Problem Status W/U Status Risk Notes Problem [id number] Encounter for screening for malignant neoplasm of colon (Z12.11) Active confirmed Problem 049473999 History of adenomatous polyp of colon (Z86.010) Active confirmed Problem 47100606 Weight loss (R63.4) Active confirmed Problem 451400829 Irritable bowel syndrome with diarrhea (K58.0) Active confirmed Plan Of Treatment Future Test Test Name Order Date COLONOSCOPY 08/23/2013 COLONOSCOPY 12/14/2019 Next Appt Details Provider Name:Alfredo Antony , 10/03/2024 10:50:00 AM, [address], [address], [place], [address], Insurance Providers Payer Name Payer Address Payer Phone Subscriber Number Group Number Insured Name Patient Relationship to Insured Coverage Start Date Coverage End Date [facility] [address] [facility] [place] [phone] [id number] BENI DIAZ Self - patient is the insured Medical (General) History Medical History History ICD Code Screening colonoscopy 008-removal of a single small tubular adenoma--also noted to have internal hemorrhoids Hypertension NIDDM Hyperlipidemia Denies UT,CVA,Lung disease,renal disease Neg colonoscopy in 10/2013 Depression/Anxiety IBS with postprandial diarrhea Surgical History Surgery Date(Month/Year) removal of the right ovary
== END 2024-09-05 09:21 | disposition home or self-care (01) ==
LOC: HO.HMCC 08:00
PROVIDERS: PCP Internal Medicine; Visit Provider Internal Medicine
DX: E11.69 Type 2 diabetes mellitus with other specified complication (principal); I10 Essential (primary) hypertension; E78.5 Hyperlipidemia, unspecified; I73.9 Peripheral vascular disease, unspecified; Z86.0101 Personal history of adenomatous and serrated colon polyps; F17.210 Nicotine dependence, cigarettes, uncomplicated; M85.852 Other specified disorders of bone density and structure, left thigh; F41.9 Anxiety disorder, unspecified; F32.A Depression, unspecified

== ENCOUNTER → 2024-09-05 08:00 | Outpatient (BNVA) | payer MEDICARE, OTHER, SELFPAY | PROVIDERS: PCP Internal Medicine; Visit Provider Internal Medicine | DX: E11.9 Type 2 diabetes mellitus without complications (principal); E78.5 Hyperlipidemia, unspecified; I10 Essential (primary) hypertension; I73.9 Peripheral vascular disease, unspecified; M85.852 Other specified disorders of bone density and structure, left thigh; F41.9 Anxiety disorder, unspecified; F32.A Depression, unspecified; F17.210 Nicotine dependence, cigarettes, uncomplicated; Z86.0101 Personal history of adenomatous and serrated colon polyps; Z71.6 Tobacco abuse counseling | CPT/HCPCS: 96127; 99212 ==

== ENCOUNTER → 2024-12-27 08:14 | Day surgery (SDC) | payer MEDICARE, OTHER, SELFPAY ==
--- OUTSIDE RECORDS SUMMARY | 2024-11-14 10:36 | XMS_ITS | Patient Health Record ---
Author Organization [facility] Address [address] [place] [address] Care Team Providers Care Paver Layer Name Role Phone Eulalio JIMENEZ, Heavenly Primary Care Provider Alfredo Barnett Unavailable [phone] Allergies No Known Allergies Reason For Referral No Information Medications Medication SIG (Take, Route, Frequency, Duration) Notes Start Date End Date Status Vitamin C 500 MG as directed Orally Active metFORMIN HCl 500 MG 1 tablet with meals Orally Twice a day Active buPROPion HCl ER (Smoking Det) 150 MG 1 tablet in the morning Orally Once a day Active Escitalopram Oxalate 20 MG 1 tablet Oral ly Once a day Active Aspirin 81 MG 1 tablet Orally Once a day Active Calcium + D 600-200 MG-UNIT 1 tablet wit h food Orally Once a day Active Lisinopril 20 MG 1 tablet Orally Once a day Active Magnesium 400 MG as directed Orally Active Atorvastatin Calcium 10 MG 1 tablet Oral ly every other day Active Immunizations Vaccine Route Administration Date Status Comme nts Influenza Unknown 12/18/2018 Administered Influenza Unknown 01/04/2024 Administered Social History Tobacco Use: Social History Observation Description Date Details (start date - stop date) Current Smoker NA - NA Tobacco Use/Smoking Question Answer Notes Patient is a current smoker When did you start smoking? mar 2017 How many cigarettes a day do you smoke? 6-10 Section Notes: Nonsmoker; no sig alcohol Smoker; no sig alcohol Smoker; no sig alcohol Problems Problem Type SNOMED Code ICD Code Onset Dates Problem Status W/U Status Risk Notes Problem Rectal bleeding (K62.5) Active confirmed Problem 867502972 Encounter for screening for malignant neoplasm of colon (Z12.11) Active confirmed Problem 142362194 History of adenomatous polyp of colon (Z86.010) Active confirmed Problem 88987628 Weight loss (R63.4) Active confirmed Problem 631001661 Irritable bowel syndrome with diarrhea (K58.0) Active confirmed Vital Signs Temperature 96.8 degrees Fahrenheit 10/03/2024 Blood pressure diastolic 01 mm Hg 10/03/2024 Height 61.5 in 10/03/2024 Blood pressure systolic 001 mm Hg 10/03/2024 Weight 135.6 lbs 10/03/2024 BMI 25.2 kg/m2 10/03/2024 Procedures Procedure Date Ordered Date Performed Result Body Sit e COLONOSCOPY 10/03/2024 N/A Encounters Encounter Location Date Provider Diagnosis [facility] [address] [place] [address] 10/03/2024 Alfredo Antony History of adenomato us polyp of colon Z86.010 ; Rectal bleeding K62.5 and Encounter for screening for malignant neoplasm of colon Z12.11 Assessments Encounter Date Diagnosis (ICD Code) Assessment Notes Treatment Notes Treatment Clinical Notes Section Notes 10/03/2024 Rectal bleeding (ICD-10 - K62.5) Overall, Jenny appears very well. Her recent episode of bleeding does sound consistent with some hemorrhoidal bleeding given her known hemorrhoids and the clinical history. Her normal hemoglobin at that time is reassuring. I have recommended a colonoscopy for primarily screening purposes given the previous history of tubular adenoma and her last exam being almost 5 years ago. We did review the rationale for this in regard to colon cancer prevention. Full consent has been attained for this, including risks of bleeding and perforation. The procedure will be done with monitored anesthesia care. She was given the below instructions regarding adjustment of her medications for the procedure. Jenny was comfortable with this plan. Thank you again for allowing me to participate in Jenny's care. I shall continue to keep you advised of her progress. 10/03/2024 History of adenomatous polyp of colon (ICD-10 - Z86.010) Do not take the Metformin the night before or on the morning of the colonoscopy Do not take aspirin on the morning of the colonoscopy Overall, Jenny appears very well. Her recent episode of bleeding does sound consistent with some hemorrhoidal bleeding given her known hemorrhoids and the clinical history. Her normal hemoglobin at that time is reassuring. I have recommended a colonoscopy for primarily screening purposes given the previous history of tubular adenoma and her last exam being almost 5 years ago. We did review the rationale for this in regard to colon cancer prevention. Full consent has been attained for this, including risks of bleeding and perforation. The procedure will be done with monitored anesthesia care. She was given the below instructions regarding adjustment of her medications for the procedure. Jenny was comfortable with this plan. Thank you again for allowing me to participate in Jenny's care. I shall continue to keep you advised of her progress. 10/03/2024 Encounter for screening for malignant neoplasm of colon (ICD-10 - Z12.11) Overall, Jenny appears very well. Her recent episode of bleeding does sound consistent with some hemorrhoidal bleeding given her known hemorrhoids and the clinical history. Her normal hemoglobin at that time is reassuring. I have recommended a colonoscopy for primarily screening purposes given the previous history of tubular adenoma and her last exam being almost 5 years ago. We did review the rationale for this in regard to colon cancer prevention. Full consent has been attained for this, including risks of bleeding and perforation. The procedure will be done with monitored anesthesia care. She was given the below instructions regarding adjustment of her medications for the procedure. Jenny was comfortable with this plan. Thank you again for allowing me to participate in Jenny's care. I shall continue to keep you advised of her progress. Plan Of Treatment Pending Test Test Name Order Date COLONOSCOPY 10/03/2024 Future Test Test Name Order Date COLONOSCOPY 08/23/2013 COLONOSCOPY 12/14/2019 Next Appt Details Provider Name:Alfredo Antony , 12/27/2024 09:30:00 AM, [address] [place] [address] , [place], [place], [phone], Insurance Providers Payer Name Payer Address Payer Phone Subscriber Number Group Number Insured Name Patient Relationship to Insured Coverage Start Date Coverage End Date MEDICARE OF [place] [address] [facility] [id number] MAINE MOYERJENNY Self - patient is the insured 1 [employer] ([email or web address]) [address] [place] [address] [id number] MAINE MOYERJENNY Self - patient is the insured Medical (General) History Medical History History ICD Code Screening colonoscopy 008-removal of a single small tubular adenoma--also noted to have internal hemorrhoids Hypertension NIDDM Hyperlipidemia Denies DC,CVA,Lung disease,renal disease Neg colonoscopy in 10/2013 Depression/Anxiety IBS with postprandial diarrhea PVD---bilateral stents for the LE's-Dr. Mcbride at [facility] 2021 Colonoiscopy 12/2019--1 nonad enomatous polyp, no IBD, bx neg for microscopic colitis Surgical History Surgery Date(Month/Year) removal of the right ovary
--- OUTSIDE RECORDS SUMMARY | 2024-11-14 10:36 | XMS_ITS | Patient Health Record ---
[facility] Address [address] [place] [address] Care Team Providers Care Supervisor Doping Name Role Phone Eulalio JIMENEZ, Heavenly Bell Primary Care Provider Un available Pratik Esposito Unavailable [phone] Allergies No Known Allergies Reason For Referral No Information Medications Medication SIG (Take, Route, Frequency, Duration) Notes Start Date End Date Status Escitalopram Oxalate 20 MG 1 tablet Orally Once a day; Duration: 30 day(s) Active metFORMIN HCl 500 MG as directed Orally Twice a day Active buPROPion HCl 150 MG as directed Orally Active Clopidogrel Bisulfate 75 MG 1 tablet Orally Once a day; Duration: 30 day(s) Active Tradjenta 5 MG 1 tablet Orally Once a day Not-Taking Extra Depth Diabetic Shoes with 3 Pair Custom heat-molded multi-density innersoles for 1 year Dx: 10/09/2021 Active Atorvastatin Calcium 10 MG 1 tablet Orally Once a day; Duration: 30 day(s) Active Simvastatin 10 MG 1 tablet in the even ing Orally Once a day Not-Taking Work Note . .this patient must b e allowed to wear open toe shoes due to painful foot condition until further notice . 09/17/2014 Not-Takin g Ibuprofen 600 600 MG 1 tablet as needed Orally Three times a day; Duration: 30 DAYS 10/18/2014 Not-Takin g Lisinopril 20 MG 1 tablet Orally Once a day Active Extra-Depth Diabetic Shoes with 3 Pair Custom heat-molded multi-density innersoles . for 1 year . Dx:; Duration: . 08/20/2014 Not-Taking Immunizations Vaccine Route Administration Date Status Comme [...] primary osteoarthritis of the ankle and/or foot (247007493) Primary osteoarthritis, left ankle and foot (M19.072) Active confirmed Problem Polyneuropathy due to type 2 diabetes mellitus (042724244) Type 2 diabetes mellitus with diabetic polyneuropathy (E11.42) Active confirmed Plan Of Treatment Pending Test Test Name Order Date X ray : Foot, right 2V 11/05/2014 X ray : Foot, right 2V 11/15/2014 X ray : Foot, right 2V 11/28/2014 Glucose Fasting 08/20/2014 X ray : Foot, left 3V 10/09/2021 X ray : Foot, right 3V 08/20/2014 [id number] NAIL, 6 OR MORE 08/20/2014 26916- Debride <25 sq cm 08/20/2014 18264- Debride <25 sq cm 09/17/2014 [id number] SKIN LESIONS, 2 TO 4 08/21/19 15 [id number] SKIN LESIONS, 2 TO 4 10/10/19 22 Insurance Providers Payer Name Payer Address Payer Phone Subscriber Number Group Number Insured Name Patient Relationship to Insured Coverage Start Date Coverage End Date Medicare National Govt Sv[employer] [address] [place] [address] [id number] Jenny Bowden Self - patient is the insured [facility] ([facility]) [address] DANYELL CHICAS [id number] Jenny Bowden Self - patient is the insured Medical (General) History Medical History History ICD Code Diabetic type ll High blood pressure Chicken pox Anxiety Depression Poor circulation Surgical History Surgery Date(Month/Year) ovarian surgery 1971 wisdom teeth extraction 1977 Hammertoe/Exc skin ulcer right 11/05 15 B/L Stent put in pelvic area 06/10/2021
[2024-12-25 14:43] VITALS: BMI 25.2
--- NOTE | 2024-12-26 08:22 | HO.ANESPROP2 ---
HPI - Anesthesia Eval Consult details Narrative: 69yo F for Colonoscopy [facility] Active Problems Active Problems: All Active Problems Family history- stomach cancer (Acute) Controlled diabetes mellitus type II without complication (Acute) Essential hypertension (Acute) Dyslipidemia (Acute) Peripheral arterial disease (Acute) History of adenomatous polyp of colon (Acute) Nicotine dependence, cigarettes, uncomplicated (Acute) Osteopenia of left femoral neck (Acute) Hearing impaired (Acute) Anxiety and depression (Acute) Postmenopausal (Acute) Past Medical History Medical History (Updated 09/05/24 @ 08:45 by Heavenly Tsai MD) Controlled diabetes mellitus type II without complication Essential hypertension Dyslipidemia Peripheral arterial disease Iliac artery stenosis, bilateral Nicotine dependence, cigarettes, uncomplicated Osteopenia of left femoral neck Postmenopausal History of adenomatous polyp of colon History of rectal bleeding Anxiety and depression Numbness and tingling of both lower extremities Abdominal bruit Hearing impaired Family History Family History Father CVD (cardiovascular disease) Myocardial infarction Mother Diabetes mellitus HTN (hypertension) Stomach cancer, Onset Age: 62 Brother Myocardial infarction CVD (cardiovascular disease) Sister No problems noted. Sister No problems noted. Son No problems noted. Son No problems noted. Daughter No problems noted. Daughter No problems noted. Surgical History Surgical History (Updated 12/25/24 @ 14:44 by Mary Garrett RN) History of tonsillectomy History of angioplasty of peripheral vessel History of left oophorectomy History of hammer toe correction History of colonoscopy (12/2019) Social History Social History Housing: House Alcohol intake: never Patient Tobacco Use Status: Current everyday Tobacco user Cigarettes Per Day: 6 Years Smoked: (onset 1yo, 1/2ppd x 53yrs, 25pyh) e-Cigarette/Vaping Use: Never Used service: No Current occupational status: retired Cognitive needs: No Hearing needs: No Vision needs: Yes Meds Allergies Allergy/AdvReac Type Severity Reaction Status Date / Time No Known Allergies (No Known Allergy Verified 09/05/24 08:20 Allergies*) Home Medications ?Medication ?Instructions ?Recorded ?Confirmed ?Last Taken ?Type aspirin 81 mg tablet,delayed 81 mg PO DAILY 11/06/20 09/08/25 Unknown History release cholecalciferol (vitamin D3) 25 3,000 unit PO DAILY 06/28/20 04/24/21 Unknown History mcg (1,000 unit) capsule ascorbate calcium (vitamin C) 500 1 g PO DAILY 04/24/21 12/25/24 Unknown History mg tablet magnesium 250 mg tablet 300 mg PO DAILY 04/24/21 04/24/21 Unknown History Exam Height,Weight and Vital Signs: Height 5 ft 1.5 in Weight 61.405 kg Assessment and Plan Assessment Anesthesia Assessment: Chart Reviewed
[2024-12-27 09:13] VITALS: BMI 25.4
--- NOTE | 2024-12-27 10:12 | PC.NURSE ---
pt to preop stated threw up all the prep she drank, 3 cups left. last time in br, had regular formed bm. fleets given per md request, lrg formed bm resulted. md velasquez'vidhi procedure. md to speak with pt to reschedule.
== END ==
LOC: HO.SSS 08:15
PROVIDERS: PCP Internal Medicine; Visit Provider Internal Medicine
DX: Z12.11 Encounter for screening for malignant neoplasm of colon (principal); Z86.0101 Personal history of adenomatous and serrated colon polyps; Z53.8 Procedure and treatment not carried out for other reasons; K64.8 Other hemorrhoids; I10 Essential (primary) hypertension; E78.5 Hyperlipidemia, unspecified; E11.9 Type 2 diabetes mellitus without complications; F41.8 Other specified anxiety disorders; Z79.84 Long term (current) use of oral hypoglycemic drugs; Z79.899 Other long term (current) drug therapy; Z79.82 Long term (current) use of aspirin; F17.210 Nicotine dependence, cigarettes, uncomplicated

== ENCOUNTER 2025-04-02 11:34 | Day surgery (SDC) | payer MEDICARE, OTHER, SELFPAY ==
--- OUTSIDE RECORDS SUMMARY | 2024-12-27 04:30 | XMS_ITS ---
Author Organization [facility] Address [address] [place] [address] Care Team Providers Care Sash Maker Name Role Phone Eulalio JIMENEZ, Heavenly Primary Care Provider Alfredo Barnett [phone] REASON FOR VISIT screening,hx polyps Encounters Encounter Location Date Provider Diagnosis [facility] Outpatient [address] [place] [phone] 12/27/2024 Alfredo Antony Plan Of Treatment Next Appt Details Provider Name:Alfredo Antony , 04/02/2025 11:40:00 AM, [address] [place] [address], [phone], Progress Notes * BENI REHMAN ADOB:08/1955 (69 yo F)Acc No.[id number]:12/27/2024 COLON WITH MAC Patient: BENI ZAMARRIPA Provider: Simona Antony MD :1955 A ge:69 Y S ex:Female Date:12/27/2024 Address:[address] [place], [place] [id number] Pcp:Heavenly Tsai MD Subjective: * Chief Complaints: * S creening,hx polyps Billing Information: * Procedure Codes: * The named appointment provid er may or may not be the originator of this progress note, and it is not deemed complete until electronically signed by the appointment provider. Sign off status: Pending * Provider: Simona Antony MD Date: 0 12/27/2024 Generated for Tayler mendoza/Stone/Asad on: 05/08/2024 03:46 AM EST
--- OUTSIDE RECORDS SUMMARY | 2025-03-08 03:46 | XMS_ITS | Patient Health Record ---
Author Organization [facility] Address [address] [place] [address] Care Team Providers Care Funnel Coater Name Role Phone Eulalio JIMENEZ, Heavenly Primary Care Provider Alfredo Barnett Unavailable [phone] Allergies No Known Allergies Reason For Referral No Information Medications Medication SIG (Take, Route, Frequency, Duration) Notes Start Date End Date Status Vitamin C 500 MG Capsule as directed Orally Active metFORMIN HCl 500 MG Tablet 1 tablet wit h meals Orally Twice a day Active buPROPion HCl ER (Smoking Det) 150 MG Tablet Extended Release 12 Hour 1 tablet in the morning Orally Once a day Active Escitalopram Oxalate 20 MG Tablet 1 tablet Orally Once a day Active Aspirin 81 MG Tablet Chewable 1 tablet Orally Once a day Active Calcium + D 600-200 MG-UNIT Tablet 1 tablet with food Orally Once a day Active Lisinopril 20 MG Tablet 1 tablet Orally Once a day Active Magnesium 400 MG Capsule as directed Orally Active Atorvastatin Calcium 10 MG Tablet 1 tablet Orally every other day Active Immunizations Vaccine Route Administration Date Status Comme nts Influenza Unknown 12/18/2018 Administered Influenza Unknown 01/04/2024 Administered Social History Tobacco Use: Social History Observation Description Date Details (start date - stop date) Current Smoker NA - NA Social History Tobacco Use: Social Info Question Answer Notes Tobacco Use/Smoking Patient is a current smoker When did you start smoking? mar 2017 How many cigarettes a day do you smoke? 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 Section Notes: Nonsmoker; no sig alcohol Smoker; no sig alcohol Smoker; no sig alcohol Problems Problem Type SNOMED Code ICD Code Onset Dates Problem Status W/U Status Risk Notes Problem Rectal bleeding (37693320) Rectal bleeding (K62.5) Active confirmed Problem Screening for malignant neoplasm of colon (385184349) Encounter for screening for malignant neoplasm of colon (Z12.11) Active confirmed Problem History of adenomatous polyp of colon (669915738) History of adenomatous polyp of colon (Z86.010) Active confirmed Problem Weight loss (232041093) Weight loss (R63.4) Active confirmed Problem Irritable bowel syndrome with diarrhea (963045434) Irritable bowel syndrome with diarrhea (K58.0) Active confirmed Vital Signs Temperature 96.8 degrees Fahrenheit 10/03/2024 Blood pressure diastolic 01 mm Hg 10/03/2024 Height 61.5 in 10/03/2024 Blood pressure systolic 001 mm Hg 10/03/2024 Weight 135.6 lbs 10/03/2024 BMI 25.2 kg/m2 10/03/2024 Procedures Procedure Date Ordered Date Performed Result Body Sit e COLONOSCOPY 10/03/2024 N/A Encounters Encounter Location Date Provider Diagnosis [facility] Outpatient [address] [place] [phone] 12/27/2024 Alfredo Antony [facility] [address] [place] [phone] 10/03/2024 Alfredo Antony History of adenomatous polyp of colon Z86.010 ; Rectal bleeding K62.5 and Encounter for screening for malignant neoplasm of colon Z12.11 [facility] [address] [place] [address] 12/29/2024 Alfredo Antony Assessments Encounter Date Diagnosis (ICD Code) Assessment [...] COLONOSCOPY 12/14/2019 Next Appt Details Provider Name:Alfredo Darling Arpan , 04/02/2025 11:40:00 AM, [address] [facility] , [place], [place], [phone], Insurance Providers Payer Name Payer Address Payer Phone Subscriber Number Group Number Insured Name Patient Relationship to Insured Coverage Start Date Coverage End Date MEDICARE OF [employer] [address] [place] [address] [id number] LINDAMARÍA ELENAJENNY EUGENE Self - patient is the insured 1 [employer] ([employer]) [address] [place] [address] [phone] [id number] LINDAMARÍA ELENARONNY OmerJENNY Corea Self - patient is the insured Medical (General) History Medical History History ICD Code Screening colonoscopy 008-removal of a single small tubular adenoma--also noted to have internal hemorrhoids Hypertension NIDDM Hyperlipidemia Denies AR,CVA,Lung disease,renal disease Neg colonoscopy in 10/2013 Depression/Anxiety IBS with postprandial diarrhea PVD---bilateral stents for the LE's-Dr. Mcbride at [facility] 2021 Colonoiscopy 12/2019--1 nonad enomatous polyp, no IBD, bx neg for microscopic colitis Surgical History Surgery Date(Month/Year) removal of the right ovary
--- OUTSIDE RECORDS SUMMARY | 2025-03-08 03:46 | XMS_ITS | Patient Health Record ---
Author [facility] Address [address] [place] [address] Care Team Providers Care Court Advocate Name Role Phone Eulalio JIMENEZ, Heavenly Bell Primary Care Provider Un available Pratik Yeung Unavailable [phone] Allergies No Known Allergies Reason For Referral [...] primary osteoarthritis of the ankle and/or foot (289377047) Primary osteoarthritis, left ankle and foot (M19.072) Active confirmed Problem Polyneuropathy due to type 2 diabetes mellitus (751726916) Type 2 diabetes mellitus with diabetic polyneuropathy (E11.42) Active confirmed Plan Of Treatment Pending Test Test Name Order Date X ray : Foot, right 2V 11/05/2014 X ray : Foot, right 2V 11/15/2014 X ray : Foot, right 2V 11/28/2014 Glucose Fasting 08/20/2014 X ray : Foot, left 3V 10/09/2021 X ray : Foot, right 3V 08/20/2014 [id number] NAIL, 6 OR MORE 08/20/2014 22985- Debride <25 sq cm 08/20/2014 42563- Debride <25 sq cm 09/17/2014 [id number] SKIN LESIONS, 2 TO 4 08/21/19 15 [id number] SKIN LESIONS, 2 TO 4 10/10/19 22 Insurance Providers Payer Name Payer Address Payer Phone Subscriber Number Group Number Insured Name Patient Relationship to Insured Coverage Start Date Coverage End Date Medicare National Govt Svcs Inc [address] [place] [address] [id number] Jenny Bowden Self - patient is the insured [facility] ([facility]) [address] [place] [address] [id number] Jenny Bowden Self - patient is the insured Medical (General) History Medical History History ICD Code Diabetic type ll High blood pressure Chicken pox Anxiety Depression Poor circulation Surgical History Surgery Date(Month/Year) ovarian surgery 1971 wisdom teeth extraction 1977 Hammertoe/Exc skin ulcer right 11/05 15 B/L Stent put in pelvic area 06/10/2021
--- NOTE | 2025-03-29 10:38 | HO.ANESPROP2 ---
Documented by User: Lyla Wylie NP 03/29/25 10:39 HPI - Anesthesia Eval Consult details Narrative: 69yo F for Colonoscopy PAD s/p stenting to bilat common iliac artery. Aspirin 81mg PMFSH Active Problems Active Problems: All Active Problems Family history- stomach cancer (Acute) Controlled diabetes mellitus type II without complication (Acute) Essential hypertension (Acute) Dyslipidemia (Acute) Peripheral arterial disease (Acute) History of adenomatous polyp of colon (Acute) Nicotine dependence, cigarettes, uncomplicated (Acute) Osteopenia of left femoral neck (Acute) Hearing impaired (Acute) Anxiety and depression (Acute) Postmenopausal (Acute) Past Medical History Medical History PVD (peripheral vascular disease) IBS (irritable bowel syndrome) Controlled diabetes mellitus type II without complication Essential hypertension Dyslipidemia Peripheral arterial disease Iliac artery stenosis, bilateral Nicotine dependence, cigarettes, uncomplicated Osteopenia of left femoral neck Postmenopausal History of adenomatous polyp of colon History of rectal bleeding Anxiety and depression Numbness and tingling of both lower extremities Abdominal bruit Hearing impaired Family History Family History Father CVD (cardiovascular disease) Myocardial infarction Mother Diabetes mellitus HTN (hypertension) Stomach cancer, Onset Age: 62 Brother Myocardial infarction CVD (cardiovascular disease) Sister No problems noted. Sister No problems noted. Son No problems noted. Son No problems noted. Daughter No problems noted. Daughter No problems noted. Surgical History Surgical History History of tonsillectomy History of angioplasty of peripheral vessel History of left oophorectomy History of hammer toe correction History of colonoscopy (12/2019) Social History Social History Housing: House Alcohol intake: never Patient Tobacco Use Status: Current everyday Tobacco user Tobacco use type: Cigarette Cigarettes Per Day: 6 Years Smoked: (onset 1yo, 1/2ppd x 53yrs, 25pyh) e-Cigarette/Vaping Use: Never Used Use of substances other than those prescribed or required for medical reasons: No Are you DNR?: No Advance Directives: No Advance Directives Information Provided: Yes Patient : No : No service: No Current occupational status: retired Cognitive needs: No Hearing needs: No Vision needs: Yes Meds Allergies Allergy/AdvReac Type Severity Reaction Status Date / Time No Known Allergies (No Known Allergy Verified 12/27/24 09:06 Allergies*) Home Medications ?Medication ?Instructions ?Recorded ?Confirmed ?Last Taken ?Type aspirin 81 mg tablet,delayed 81 mg PO DAILY 02/23/20 03/29/25 12/26/24 History release ascorbate calcium (vitamin C) 500 500 mg PO DAILY 04/24/21 03/29/25 Unknown History mg tablet escitalopram oxalate 20 mg tablet 20 mg PO DAILY PRN increased 12/27/24 03/29/25 Unknown History depression metformin 1,000 mg tablet 1,000 mg PO DAILY 12/27/24 03/29/25 Unknown History calcium 600 mg (as 1 tab PO DAILY 03/29/25 03/29/25 Unknown History carbonate)-vitamin D3 5 mcg (200 unit) tablet magnesium oxide 400 mg PO DAILY 03/29/25 03/29/25 Unknown History Assessment and Plan Assessment Anesthesia Assessment: Chart Reviewed Documented by User: Karen Cristina MD 04/02/25 13:56 [facility] Past Medical History Medical History PVD (peripheral vascular disease) IBS (irritable bowel syndrome) Controlled diabetes mellitus type II without complication Essential hypertension Dyslipidemia Peripheral arterial disease Iliac artery stenosis, bilateral Nicotine dependence, cigarettes, uncomplicated Osteopenia of left femoral neck Postmenopausal History of adenomatous polyp of colon History of rectal bleeding Anxiety and depression Numbness and tingling of both lower extremities Abdominal bruit Hearing impaired Family History Family History Father CVD (cardiovascular disease) Myocardial infarction Mother Diabetes mellitus HTN (hypertension) Stomach cancer, Onset Age: 62 Brother Myocardial infarction CVD (cardiovascular disease) Sister No problems noted. Sister No problems noted. Son No problems noted. Son No problems noted. Daughter No problems noted. Daughter No problems noted. Surgical History Surgical History History of tonsillectomy History of angioplasty of peripheral vessel History of left oophorectomy History of hammer toe correction History of colonoscopy (12/2019) History of Problems with Anesthesia: No Social History Social History Housing: House Alcohol intake: never Patient Tobacco Use Status: Current everyday Tobacco user Tobacco use type: Cigarette Cigarettes Per Day: 6 Years Smoked: (onset 1yo, 1/2ppd x 53yrs, 25pyh) e-Cigarette/Vaping Use: Never Used Use of substances other than those prescribed or required for medical reasons: No Are you DNR?: No Advance Directives: No Advance Directives Information Provided: Yes Patient : No : No service: No Current occupational status: retired Cognitive needs: No Hearing needs: No Vision needs: Yes Meds Allergies Allergy/AdvReac Type Severity Reaction Status Date / Time No Known Allergies (No Known Allergy Verified 12/27/24 09:06 Allergies*) Home Medications ?Medication ?Instructions ?Recorded ?Confirmed ?Last Taken ?Type aspirin 81 mg tablet,delayed 81 mg PO DAILY 02/23/20 03/29/25 12/26/24 History release ascorbate calcium (vitamin C) 500 500 mg PO DAILY 04/24/21 03/29/25 Unknown History mg tablet escitalopram oxalate 20 mg tablet 20 mg PO DAILY PRN increased 12/27/24 03/29/25 Unknown History depression metformin 1,000 mg tablet 1,000 mg PO DAILY 12/27/24 03/29/25 Unknown History calcium 600 mg (as 1 tab PO DAILY 03/29/25 03/29/25 Unknown History carbonate)-vitamin D3 5 mcg (200 unit) tablet magnesium oxide 400 mg PO DAILY 03/29/25 03/29/25 Unknown History Exam Airway Mallampati Class: II TM Dist: >3cm Neck ROM: Full Loose/Missing/Broken Teeth: No Heart: RRR Lungs: CTA Assessment and Plan Assessment Anesthesia Assessment: Anesthesia Plan Discussed Final Anesthetic Review History of Problems with Anesthesia: No NPO: Yes ASA Class: III Final Preanesthetic Review: Meds/Allgs Chart Reviewed, Consent Obtained/Reviewed and Anes Risks/Benef Reviewed Patient Risk: Intermediate Procedure Risk: Low Anesthetic Plan Anesthetic Plan: MAC: Disposition: Standard PACU
[2025-03-29 13:42] VITALS: BMI 25.2
[2025-04-02 13:33] VITALS: BMI 24.8
[2025-04-02 13:48] VITALS: BP 160/67; RESP 16; TEMP 36.1; O2SAT 100
[2025-04-02 13:57] LABS: Glucose, Whole Blood 114 mg/dL (60-115)
[2025-04-02] MEDS: Lactated Ringers 1,000 ML 100 ML IVCONT (13:58)
[2025-04-02 15:00] VITALS: BP 122/47; PULSE 71; RESP 18; TEMP 36.2; O2SAT 100
[2025-04-02 15:15] VITALS: BP 149/79; PULSE 76; RESP 20; TEMP 36.6; O2SAT 98
--- NOTE | 2025-04-02 15:20 | PM.OP ---
Brief Operative Note Date of Service: 04/02/25 Pre-op diagnosis: Screening Post-op diagnosis: other (Colon polyp) Procedure: Colonoscopy to the cecum with cold snare polypectomy x 1 Surgeon: Alfredo Antony MD Anesthesia: MAC Was an Headlight Assembler used for this Procedure?: No Estimated blood loss (mL): 2.0 Pathology: other (A. Colon Polyp at 40cm) Condition: stable Disposition: PACU
--- NOTE | 2025-04-02 19:30 | OP_ITS ---
DATE OF SERVICE: 04/02/2025 SURGEON: Alfredo Antony MD INDICATIONS: The patient presents for evaluation of personal history of tubular adenoma of the colon, occasional hematochezia, and need for colorectal cancer screening. Full consent has been obtained from her for this, including risks of bleeding and perforation. PREOPERATIVE DIAGNOSIS: POSTOPERATIVE DIAGNOSIS: PROCEDURE PERFORMED: Colonoscopy to the cecum with cold snare polypectomy. ESTIMATED BLOOD LOSS: COMPLICATIONS: ANESTHESIA: Monitored anesthesia care. ASSISTANTS: SPECIMENS: PREOPERATIVE DIAGNOSES: Preop diagnosis personal history of tubular adenoma of the colon, intermittent rectal bleeding, colorectal cancer screening. POSTOPERATIVE DIAGNOSES: Preop diagnosis personal history of tubular adenoma of the colon, intermittent rectal bleeding, colorectal cancer screening, small colon polyp, diverticulosis, and internal hemorrhoids. DESCRIPTION OF PROCEDURE: The patient was placed in the left lateral decubitus position. The digital rectal exam revealed no abnormalities. The Olympus video pediatric colonoscope was entered into the rectum and advanced easily to the cecum. Once in the cecum, I did identify normal-appearing cecal pouch with appendiceal orifice and a normal-appearing ileocecal valve. The entire cecum and ileocecal valve appeared normal. The scope was slowly withdrawn assessing all mucosal surfaces carefully. Preparation was excellent. At 40 cm was a flat, but raised approximately 5 mm polyp, which was removed by cold snare polypectomy and recovered by suction. The polypectomy site appeared clean, without any sign of residual polyp nor bleeding. I did not visualize any other polyps, colitis, nor angiodysplasia. There was a mild amount of sigmoid diverticulosis. Of note, the prep was dramatically better than it was earlier in the year when she only did a 1 day prep at that time, but did a 2 day prep for this procedure. In the rectum, scope was retroflexed visualizing internal hemorrhoids, but no other pathology. The rectal mucosa appeared normal. Scope was straightened and withdrawn from the patient. She tolerated the procedure well and was returned to recovery area in stable condition. IMPRESSION: 1. Small colon polyp. 2. Diverticulosis. 3. Internal hemorrhoids. PLAN: The results of the pathology will be checked. I would recommend a repeat colonoscopy in 5 years for further screening and surveillance. She was advised to resume her aspirin in 48 hours. She will otherwise see me as needed. MD CARINE Stafford/YOLANDA / [id number]
== END 2025-04-02 15:35 | disposition home or self-care (01) ==
PROVIDERS: PCP Internal Medicine; Visit Provider Internal Medicine
PROC: 0DJD8ZZ Inspection of Lower Intestinal Tract, Via Natural or Artificial Opening Endoscopic (ICD-10-PCS; CPT 45378; principal; 2025-04-02 13:20)
DX: Z12.11 Encounter for screening for malignant neoplasm of colon (principal); Z86.0101 Personal history of adenomatous and serrated colon polyps; K57.30 Diverticulosis of large intestine without perforation or abscess without bleeding; D12.5 Benign neoplasm of sigmoid colon; E11.9 Type 2 diabetes mellitus without complications
CPT/HCPCS: 45385; 82947; 88305; J2003; J2704